=== PATIENT | female | born 1955 | race Caucasian/White ===

== ENCOUNTER 2017-10-29 20:43 | Emergency (ER) | END 2017-10-30 00:16 | disposition left against medical advice (07) ==

== ENCOUNTER 2019-03-02 11:45 | Inpatient (IN) | payer OTHER ==
[~2019-03-02] VITALS: Ht 157.5 cm; Wt 90.6 kg
[~2019-03-02 11:45] MED LIST: PANT40TA3 PO; RANI150T35 PO
--- NOTE | 2019-03-02 12:25 | ERD ---
ER Documentation Chief Complaint Chief Complaint SOB HPI The patient is a 64-year-old female, presenting to the ER because of acute d yspnea, CARO for the last 10 days, had similar symptoms previously, complains of right lower back radiating to the right upper chest for 10 days, also had similar symptoms previously, complains of intermittent cough for the last 20 days. She denies fever, chills, neck pain, chest pain, complains of vomiting intermittently for 1 week of mostly mucus, denies hematemesis/hematochezia, denies dysuria. She does not smoke nor drink. She recently changed her antihypertensive medication to olmesartan 40 mg daily and clonidine 0.1 mg as needed daily. She just took her medication about 20 minutes while she was waiting in the ER waiting room. Past medical history: History of metastatic ovarian cancer with chemotherapy for the last 5 years, hypertension, anemia, sleep apnea, history of peritoneal carcinoma Past surgical history: Thoracentesis, hysterectomy ROS All systems reviewed and are negative except as per history of present illness. Medications Home Meds Reported Medications Cholecalciferol* (Vitamin D3*) 1,000 Unit Tablet, 1000 UNIT PO DAILY, TAB 03/02/19 Pantoprazole* (Protonix*) 40 Mg Tablet.dr, 40 MG PO DAILY, TAB 03/02/19 Ibuprofen* (Motrin*) 600 Mg Tab, 600 MG PO Q6H PRN for PAIN, TAB 03/02/19 Metformin Hcl* (Metformin Hcl*) 500 Mg Tablet, 500 MG PO WITH BREAKFAST, #30 TAB 03/02/19 Clonidine Hcl* (Clonidine Hcl*) 0.1 Mg Tab, 0.1 MG PO DAILY PRN for BLOOD PRESSURE SUPPORT, TAB 03/02/19 Hydrochlorothiazide* (Hydrochlorothiazide*) 25 Mg Tab, 25 MG PO DAILY, #30 TAB 03/02/19 Olmesartan Medoxomil (Benicar) 40 Mg Tablet, 40 MG PO DAILY, #30 TAB 03/02/19 Discontinued Scripts Pantoprazole* (Protonix*) 40 Mg Tablet.dr, 40 MG PO BID for 30 Days, TAB Prov:RACHNA BAUER MD 06/27/16 Ranitidine Hcl* (Zantac*) 150 Mg Tablet, 150 MG PO BID, #60 TAB Prov:FREDI CRAMER DO 06/09/16 Allergies Allergies: Coded Allergies: No Known Allergies (Verified Allergy, Unknown, 03/02/19) PMhx/Soc History of Surgery: Yes (thoracentesis, chemo) Anesthesia Reaction: No Hx Neurological Disorder: No Hx Respiratory Disorders: No Hx Cardiac Disorders: Yes (HTN) Hx Psychiatric Problems: No Hx Miscellaneous Medical Probl: Yes (intra abdominal pelvic malignancy, R omental mass,peritoneal ca,bronchitis,) Hx Alcohol Use: No Hx Substance Use: No Hx Tobacco Use: No Physical Exam Vitals Vital Signs Date Temp Pulse Resp B/P (MAP) Pulse Ox O2 O2 Flow FiO2 Time Delivery Rate 03/02/19 Nasal 2 12:40 Cannula 03/02/19 98.7 85 18 228/100 95 11:49 (142) Physical Exam Const: No acute distress. Head: Atraumatic. Eyes: Normal Conjunctiva. ENT: Normal External Ears, Nose and Mouth. Neck: Full range of motion. No meningismus. Resp: Bibasilar crackles. Decreased breath sounds at the bases Cardio: Regular rate and rhythm. Abd: Soft, non distended, normal bowel sounds, non tender. Skin: No petechiae or rashes. Back: No midline or flank tenderness. Ext: No cyanosis, or edema. Neur: Awake and alert. No focal deficit Psych: Normal Mood and Affect. Result Diagram: 03/02/19 1307 03/02/19 1306 Results 24 hrs Laboratory Tests Test 03/02/19 13:06 03/02/19 13:07 03/02/19 13:29 Prothrombin Time 14.0 Sec Prothrombin Time Ratio 1.1 INR International 1.07 Normalized Ratio Activated 28.6 Sec Partial Thromboplast Time D-Dimer 1738.55 ng/ml D-Dimer Comment Sodium Level 144 mmol/L Potassium Level 3.6 mmol/L Chloride Level 111 mmol/L Carbon Dioxide Level 27 mmol/L Anion Gap 6 Blood Urea Nitrogen 26 mg/dl Creatinine 1.53 mg/dl Est Glomerular Filtrat 34 mL/min Rate mL/min Glucose Level 99 mg/dl Calcium Level 9.3 mg/dl Total Bilirubin 0.6 mg/dl Direct Bilirubin 0.00 mg/dl Indirect Bilirubin 0.6 mg/dl Aspartate Amino 26 IU/L Transf (AST/SGOT) Alanine 15 IU/L Aminotransferase (ALT/SGPT ) Alkaline Phosphatase 146 IU/L Troponin I < 0.012 ng/ml B-Type Natriuretic Peptide 665 PG/ML Total Protein 7.5 g/dl Albumin 4.0 g/dl Globulin 3.50 g/dl Albumin/Globulin Ratio 1.14 White Blood Count 5.6 10^3/ul Red Blood Count 2.65 10^6/ul Hemoglobin 8.2 g/dl Hematocrit 28.2 % Mean Corpuscular Volume 106.4 fl Mean Corpuscular 30.9 pg Hemoglobin Mean Corpuscular 29.1 g/dl Hemoglobin Concent Red Cell Distribution 22.8 % Width Platelet Count 315 10^3/UL Mean Platelet Volume 9.5 fl Immature Granulocytes % 0.400 % Neutrophils % 65.5 % Lymphocytes % 23.9 % Monocytes % 7.0 % Eosinophils % 2.3 % Basophils % 0.9 % Nucleated Red Blood Cells 0.4 /100WBC % Immature Granulocytes # 0.020 10^3/ul Neutrophils # 3.7 10^3/ul Lymphocytes # 1.3 10^3/ul Monocytes # 0.4 10^3/ul Eosinophils # 0.1 10^3/ul Basophils # 0.1 10^3/ul Nucleated Red Blood Cells 0.0 10^3/ul # Blood Gas Specimen Source Blood arterial Arterial Blood Date Drawn 03/02/2019 1:35:00 PM Arterial Blood pH 6.907 (Temp corrected) Arterial Blood pO2 85.2 mmHG (Temp corrected) Arterial Blood 94.1 mmHG Oxygen Saturation Vincent Test ACCEPTAB Arterial Blood Gas Right Radial Puncture Site Arterial 0.4 % Blood Carboxyhemoglobin Arterial Blood 0.6 % Methemoglobin Oxyhemoglobin Percent 93.2 % Blood Gas Temperature 31.0 C Blood Gas Respiration Rate 16.0 Blood Gas Actual 16 Respiration Rate Blood Gas Modality VENT - PC FiO2 100.0 % Blood Gas High PEEP 35.0 cmH2O Setting Blood Gas Low PEEP Setting 5.0 cmH2O Blood Gas Critical Value DR. HEIN. Read Back Blood Gas Notified Whom RT Blood Gas Notified Time 03/02/2019 1:43:00 PM Current Medications Medications Dose Sig/Deepika Start Time Status Last (Trade) Ordered Route PRN Stop Time Admin Dose Reason Admin Ondansetron 4 mg ONCE STAT 03/02/19 DC HCl (Zofran IV 12:39 Inj) 03/02/19 12:41 Furosemide 40 mg ONCE ONCE 03/02/19 DC (Lasix) IV 14:30 03/02/19 14:32 Procedures/MDM [place] [id number] Radiology Main Line: [phone] DIAGNOSTIC IMAGING REPORT Patient: RITCHIE ZEE : 1955 Age: 64 Sex: F MR #: [id number] DOS: 03/02/19 1239 Ordering MD: LOYD PATEL MD Location: E/R Room/Bed: PROCEDURE: XR Chest. CLINICAL INDICATION: Dyspnea TECHNIQUE: Single frontal chest x-ray. COMPARISON: CR CHEST 06/25/2016; CR CHEST 06/22/2016; CR CHEST 06/09/2016; CR CHEST 04/17/2016 FINDINGS: Diminished lung volumes with compressive changes. Vascular crowding and bilateral basilar atelectasis. Moderate right pleural effusion, slightly improved in the interim. Mild vascular congestion, significantly improved in the interim. The cardiomediastinal silhouette is normal. Soft tissues and bony structures are unremarkable. IMPRESSION: 1. Low lung volumes with compressive changes and basilar atelectasis. 2. Improved vascular congestion and edema throughout the lungs. 3. Moderate right pleural effusion, also improved in the interim. RPTAT: HMJB .Ga Mccabe MD, MD Date Time Electronically viewed and signed by .Ga Mccabe MD, MD on 03/02/2019 13:35 .B/ CC: LOYD PATEL MD [id number] EKG: Read by emergency physician Rate/Rhythm: Normal Sinus Rhythm 77 beats/min QRS, ST, T-waves: No ST elevation, nonspecific T abnormality Impression: Abnormal EKG V/Q Pending MEDICAL MAKING DECISION: The patient is a 64-year-old female, presenting with acute CHF exacerbation, acute recurrent right pleural effusion, acute kidney injury. She was treated with Zofran 4 mg IV for nausea and Lasix 40 mg for acute CHF. CT angiogram of the chest cannot be done to rule out pulmonary embolism because of her acute kidney injury, VQ scan has been ordered and will be followed up by the admitting physician The differential diagnoses considered include but are not limited to asthma, COPD, pneumonia, pulmonary embolus, pleural effusion, congestive heart failure. Departure Diagnosis: Primary Impression: CHF (congestive heart failure) Additional Impressions: Pleural effusion, right NAGA (acute kidney injury) Anemia Condition: Stable Comments Consultation: I discussed the patient with her oncologist Dr. Santana, who was made aware of the lab, the treatment, the patient condition and accepted the consult I discussed the findings with the patient. I discussed the patient with Dr Massey at 2:40p , who was made aware of the lab, the treatment, the patient condition, pending V/Q scan. The patient is admitted to [facility] Disclaimer: Inadvertent spelling and grammatical errors are likely due to EHR/dictation software use and do not reflect on the overall quality of patient care. Also, please note that the electronic time recorded on this note does not necessarily reflect the actual time of the patient encounter. LOYD PATEL MD March 02, 2019 12:25
[2019-03-02] MEDS ORDERED: ONDANSETRON 4 MG INJ IV STA (12:39)
[2019-03-02] MEDS ORDERED: HYDR25TA6 PO (14:21)
[2019-03-02] MEDS ORDERED: METF500T24 PO (14:21)
[2019-03-02] MEDS ORDERED: CLON-379 PO (14:21)
[2019-03-02] MEDS ORDERED: OLME40TA13 PO (14:21)
[2019-03-02] MEDS ORDERED: PANT40TA3 PO (14:22)
[2019-03-02] MEDS ORDERED: IBUP-1542 PO (14:22)
[2019-03-02] MEDS ORDERED: CHOL100062 PO (14:23)
[2019-03-02] MEDS ORDERED: FUROSEMIDE 40 MG INJ IV ONE (14:30)
[2019-03-02] MEDS ORDERED: HYDROCODONE/APAP (5/325) TAB PO PRN (17:30)
[2019-03-02] MEDS ORDERED: NACL 0.9% 3 ML SYG IV SCH (17:30)
[2019-03-02 17:55] VITALS: Ht 157.5 cm; Wt 90.6 kg
[2019-03-02 18:00] VITALS: BP 152/66; PULSE 81; RESP 20
--- NOTE | 2019-03-02 18:38 | HP ---
Date/Time of Note Date/Time of Note DATE: 03/02/19 TIME: 18:29 Assessment/Plan VTE Prophylaxis SCD applied (from Nsg): Yes Pharmacological prophylaxis: heparin Lines/Catheters IV Catheter Type (from Nrsg): Saline Lock Urinary Cath still in place: No Assessment/Plan Hospital Course 64 yo female with h/o ovarian cancer, DMII, hypertension presents with respiratory distress and severe hypertension Respiratory distress: - Unclear etiology. Suspect perhaps related to hypertensive emergency wtih mild CHF. Will give another dose of lasix - WIll CT chest to assess for effusion or mets Ovarian cancer:- - Ct a/p to assess for tumor burden to explain pain and priandial nausea Hypertension: - Continue home meds and titrate to normotension DMII: - Basal/bolus insulin Result Diagram: 03/02/19 1307 03/02/19 1306 Results 24hrs Laboratory Tests Test 03/02/19 13:06 03/02/19 13:07 03/02/19 13:29 Prothrombin Time 14.0 Prothrombin Time Ratio 1.1 INR International 1.07 Normalized Ratio Activated 28.6 Partial Thromboplast Time D-Dimer 1738.55 H D-Dimer Comment Urine Color YELLOW Urine Clarity CLOUDY A Urine pH 5.0 Urine Specific [place] 1.016 Urine Ketones NEGATIVE Urine Nitrite NEGATIVE Urine Bilirubin NEGATIVE Urine Urobilinogen 1+ H Urine Leukocyte Esterase TRACE A Urine Microscopic RBC 2 Urine Microscopic WBC 7 H Urine Squamous MODERATE Epithelial Cells Urine Bacteria FEW A Urine Mucus FEW A Urine Hemoglobin NEGATIVE Urine Glucose NEGATIVE Urine Total Protein 2+ H Sodium Level 144 Potassium Level 3.6 Chloride Level 111 H Carbon Dioxide Level 27 Anion Gap 6 Blood Urea Nitrogen 26 H Creatinine 1.53 H Est Glomerular Filtrat 34 L Rate mL/min Glucose Level 99 Calcium Level 9.3 Total Bilirubin 0.6 Direct Bilirubin 0.00 Indirect Bilirubin 0.6 Aspartate Amino 26 Transf (AST/SGOT) Alanine 15 Aminotransferase (ALT/SGPT) Alkaline Phosphatase 146 H Troponin I < 0.012 B-Type Natriuretic Peptide 665 H Total Protein 7.5 Albumin 4.0 Globulin 3.50 H Albumin/Globulin Ratio 1.14 White Blood Count 5.6 # Red Blood Count 2.65 L Hemoglobin 8.2 #L Hematocrit 28.2 L Mean Corpuscular Volume 106.4 H Mean Corpuscular Hemoglobin 30.9 Mean Corpuscular 29.1 L Hemoglobin Concent Red Cell Distribution Width 22.8 H Platelet Count 315 Mean Platelet Volume 9.5 # Immature Granulocytes % 0.400 Neutrophils % 65.5 Lymphocytes % 23.9 Monocytes % 7.0 Eosinophils % 2.3 Basophils % 0.9 Nucleated Red Blood Cells % 0.4 H Immature Granulocytes # 0.020 Neutrophils # 3.7 Lymphocytes # 1.3 Monocytes # 0.4 Eosinophils # 0.1 Basophils # 0.1 Nucleated Red Blood Cells # 0.0 Blood Gas Specimen Source Blood arterial Arterial Blood Date Drawn 03/02/2019 1:35:00 PM Arterial Blood pH 6.907 *L (Temp corrected) Arterial Blood pO2 85.2 (Temp corrected) Arterial Blood 94.1 L Oxygen Saturation Vincent Test ACCEPTAB Arterial Blood Gas Right Radial Puncture Site Arterial 0.4 Blood Carboxyhemoglobin Arterial Blood Methemoglobin 0.6 Oxyhemoglobin Percent 93.2 Blood Gas Temperature 31.0 Blood Gas Respiration Rate 16.0 Blood Gas Actual 16 Respiration Rate Blood Gas Modality VENT - PC FiO2 100.0 Blood Gas High PEEP Setting 35.0 Blood Gas Low PEEP Setting 5.0 Blood Gas Critical Value [address] HEIN. Read Back Blood Gas Notified Whom RT Blood Gas Notified Time 03/02/2019 1:43:00 PM HPI/ROS Admit Date/Time Admit Date/Time March 02, 2019 at 15:26 Hx of Present Illness 64 yo female with h/o ovarian cancer on chemo, CKD, DMII, hypertension presents with respiratory distress and R flank pain Patient diagnosed with ovarian ca and peritoneal carcinomatosis a few years ago. Has been on chemotherapy. Has previously required thoracentesis. Today presetns with shrotness of breath, frequent cough and pain fairly localized to R flank. She seems to relate the flank pain to SOB. In ED had negative V/Q scan. Severe hypertension on presentation now resolved. Currently feels much better. Requesting another lasix dose. ROS Constitutional: no complaints, improved Eyes: no complaints ENT: no complaints Respiratory: no complaints Cardiovascular: no complaints Gastrointestinal: no complaints Genitourinary: no complaints Musculoskeletal: no complaints Skin: no complaints Neurologic: no complaints Endocrine: no complaints Lymphatic: no complaints Psychological: no complaints, nl mood/affect Immunologic: no complaints PMH/Family/Social Past Medical History Ovarian cancer Medications Current Medications IV Flush (NS 3 ml) 3 ml PER PROTOCOL IV ; Start 03/02/19 at 17:30 Acetaminophen/ Hydrocodone Bitart ([place] (5/325)) 2 tab Q6H PRN PO .SEVERE PAIN 7-10; Start 03/02/19 at 17:30 Enoxaparin Sodium (Lovenox) 30 mg DAILY SC ; Start 03/03/19 at 09:00 Coded Allergies: No Known Allergies (Verified Allergy, Unknown, 03/02/19) Past Surgical History Past Surgical Hx: no surgical history, appendectomy Family History Significant Family History: no pertinent family hx Social History Alcohol Use: none Smoking Status: Never smoker Drug Use: none Exam/Review of Systems Vital Signs Vitals Vital Signs Date Temp Pulse Resp B/P (MAP) Pulse Ox O2 O2 Flow FiO2 Time Delivery Rate 03/02/19 2.0 18:15 03/02/19 98.4 81 20 152/66 94 Nasal 18:00 (94) Cannula ADRIAN FRANCO MD March 02, 2019 18:38
[2019-03-02] MEDS ORDERED: IOHEXOL 14.3 MG(I)/ML (ADULT) BTL PO ONE (19:30)
[2019-03-02 20:00] VITALS: PULSE 71
[2019-03-02 20:14] VITALS: BP 199/91; PULSE 74; RESP 20
[2019-03-02 21:54] VITALS: BP 190/83
[2019-03-02] MEDS ORDERED: hydrALAzine 20 MG INJ IV PRN (22:00)
--- NOTE | 2019-03-02 23:38 | CONS ---
Assessment/Plan Assessment/Plan Hospital Course (Demo Recall) metastatic ovarian carcinoma with peritoneal disease. - CHEMO ON HOLD DURING HOSPITALIZATION RESTAGE ANEMIA, likely secondary to underlying malignancy post-chemotherapy COMPLEX POST CHEMO MB HEMATURIA IS CONTRIBUTING TRANSFUSE PRBC PRN Obstructing renal calculi, right ureter. UROLOGY EVAL ? Mild congestive cardiac failure. CHECK ECHO HX Significant dysphagia, possible esophageal motility problem versus obstruction. HX Subsequent aspiration events with syncopal episodes. 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 Has been on chemotherapy. Has previously required thoracentesis. Today presents with shortness of breath, frequent cough and pain fairly localized to R flank. She seems to relate the flank pain to SOB. In ED had negative V/Q scan. Severe hypertension on presentation now resolved. Currently feels much better. Requesting another lasix dose. ROS Constitutional: no complaints, improved Eyes: no complaints ENT: no complaints Respiratory: + SOB. + PAIN Cardiovascular: no complaints Gastrointestinal: no complaints Genitourinary: no complaints Musculoskeletal: no complaints Skin: no complaints Neurologic: no complaints Endocrine: no complaints Lymphatic: no complaints Psychological: no complaints, nl mood/affect Immunologic: no complaints PMH/Family/Social Past Medical History Ovarian cancer Medications Current Medications IV Flush (NS 3 ml) 3 ml PER PROTOCOL IV ; Start 03/02/19 at 17:30 Acetaminophen/ Hydrocodone Bitart ([place] (5/325)) 2 tab Q6H PRN PO .SEVERE PAIN 7-10; Start 03/02/19 at 17:30 Enoxaparin Sodium (Lovenox) 30 mg DAILY SC ; Start 03/03/19 at 09:00 Coded Allergies: No Known Allergies (Verified Allergy, Unknown, 03/02/19) Past Surgical History Past Surgical Hx: no surgical history, appendectomy Family History Significant Family History: no pertinent family hx Social History Alcohol Use: none Smoking Status: Never smoker Drug Use: none Past Medical History Home Meds Active Scripts Tamsulosin Hcl* (Flomax*) 0.4 Mg Cap.er.24h, 0.4 MG PO DAILY for 30 Days, #30 CAP Prov:ADRIAN FRANCO MD 03/03/19 Carvedilol* (Carvedilol*) 6.25 Mg Tablet, 6.25 MG PO BID for 60 Days, #120 TAB Prov:ADRIAN FRANCO MD 03/03/19 Reported Medications Cholecalciferol* (Vitamin D3*) 1,000 Unit Tablet, 1000 UNIT PO DAILY, TAB 03/02/19 Pantoprazole* (Protonix*) 40 Mg Tablet.dr, 40 MG PO DAILY, TAB 03/02/19 Metformin Hcl* (Metformin Hcl*) 500 Mg Tablet, 500 MG PO WITH BREAKFAST, #30 TAB 03/02/19 Clonidine Hcl* (Clonidine Hcl*) 0.1 Mg Tab, 0.1 MG PO DAILY PRN for BLOOD PRESSURE SUPPORT, TAB 03/02/19 Hydrochlorothiazide* (Hydrochlorothiazide*) 25 Mg Tab, 25 MG PO DAILY, #30 TAB 03/02/19 Discontinued Reported Medications Ibuprofen* (Motrin*) 600 Mg Tab, 600 MG PO Q6H PRN for PAIN, TAB 03/02/19 Olmesartan Medoxomil (Benicar) 40 Mg Tablet, 40 MG PO DAILY, #30 TAB 03/02/19 Discontinued Scripts Pantoprazole* (Protonix*) 40 Mg Tablet.dr, 40 MG PO BID for 30 Days, TAB Prov:RACHNA BAUER MD 06/27/16 Ranitidine Hcl* (Zantac*) 150 Mg Tablet, 150 MG PO BID, #60 TAB Prov:FREDI CRAMER DO 06/09/16 Medications Current Medications IV Flush (NS 3 ml) 3 ml PER PROTOCOL IV ; Start 03/02/19 at 17:30 Acetaminophen/ Hydrocodone Bitart ([place] (5/325)) 2 tab Q6H PRN PO .SEVERE PAIN 7-10; Start 03/02/19 at 17:30 Enoxaparin Sodium (Lovenox) 30 mg DAILY SC ; Start 03/03/19 at 09:00 Clonidine (Catapres) 0.1 mg TID PO Last administered on 03/02/19at 20:17; Admin Dose 0.1 MG; Start 03/02/19 at 21:00 Carvedilol (Coreg) 6.25 mg BID PO Last administered on 03/02/19at 20:16; Admin Dose 6.25 MG; Start 03/02/19 at 21:00 Hydralazine HCl (Apresoline) 10 mg Q4H PRN IV FOR SYSTOLIC ABOVE 170 Last administered on 03/02/19at 22:11; Admin Dose 10 MG; Start 03/02/19 at 22:00 Allergies: Coded Allergies: No Known Allergies (Verified Allergy, Unknown, 03/02/19) Past Surgical History Past Surgical Hx: no surgical history, appendectomy Social History Alcohol Use: none Smoking Status: Never smoker Drug Use: none Exam/Review of Systems Exam Vitals Vital Signs Date Temp Pulse Resp B/P (MAP) Pulse Ox O2 O2 Flow FiO2 Time Delivery Rate 03/02/19 190/83 21:54 (118) 03/02/19 98.6 74 20 95 20:14 03/02/19 2.0 20:00 03/02/19 Nasal 18:00 Cannula Exam NECK: Supple. No JVD or lymphadenopathy. CARDIAC: S1, S2, no added sounds or murmurs. CHEST: Diminished air entry bilaterally, but no rales or wheezes. ABDOMEN: Soft, nontender. No guarding or rebound. EXTREMITIES: No cyanosis, clubbing, edema. NEUROLOGIC: Grossly intact. No focal deficits. Results Result Diagram: 03/02/19 1307 03/02/19 1306 Results 24hrs Laboratory Tests Test 03/02/19 13:06 03/02/19 13:07 03/02/19 13:29 Prothrombin Time 14.0 Prothrombin Time Ratio 1.1 INR International 1.07 Normalized Ratio Activated 28.6 Partial Thromboplast Time D-Dimer 1738.55 H D-Dimer Comment Urine Color YELLOW Urine Clarity CLOUDY A Urine pH 5.0 Urine Specific [place] 1.016 Urine Ketones NEGATIVE Urine Nitrite NEGATIVE Urine Bilirubin NEGATIVE Urine Urobilinogen 1+ H Urine Leukocyte Esterase TRACE A Urine Microscopic RBC 2 Urine Microscopic WBC 7 H Urine Squamous MODERATE Epithelial Cells Urine Bacteria FEW A Urine Mucus FEW A Urine Hemoglobin NEGATIVE Urine Glucose NEGATIVE Urine Total Protein 2+ H Sodium Level 144 Potassium Level 3.6 Chloride Level 111 H Carbon Dioxide Level 27 Anion Gap 6 Blood Urea Nitrogen 26 H Creatinine 1.53 H Est Glomerular Filtrat 34 L Rate mL/min Glucose Level 99 Calcium Level 9.3 Total Bilirubin 0.6 Direct Bilirubin 0.00 Indirect Bilirubin 0.6 Aspartate Amino 26 Transf (AST/SGOT) Alanine 15 Aminotransferase (ALT/SGPT) Alkaline Phosphatase 146 H Troponin I < 0.012 B-Type Natriuretic Peptide 665 H Total Protein 7.5 Albumin 4.0 Globulin 3.50 H Albumin/Globulin Ratio 1.14 White Blood Count 5.6 # Red Blood Count 2.65 L Hemoglobin 8.2 #L Hematocrit 28.2 L Mean Corpuscular Volume 106.4 H Mean Corpuscular Hemoglobin 30.9 Mean Corpuscular 29.1 L Hemoglobin Concent Red Cell Distribution Width 22.8 H Platelet Count 315 Mean Platelet Volume 9.5 # Immature Granulocytes % 0.400 Neutrophils % 65.5 Lymphocytes % 23.9 Monocytes % 7.0 Eosinophils % 2.3 Basophils % 0.9 Nucleated Red Blood Cells % 0.4 H Immature Granulocytes # 0.020 Neutrophils # 3.7 Lymphocytes # 1.3 Monocytes # 0.4 Eosinophils # 0.1 Basophils # 0.1 Nucleated Red Blood Cells # 0.0 Blood Gas Specimen Source Blood arterial Arterial Blood Date Drawn 03/02/2019 1:35:00 PM Arterial Blood pH 6.907 *L (Temp corrected) Arterial Blood pO2 85.2 (Temp corrected) Arterial Blood 94.1 L Oxygen Saturation Vincent Test ACCEPTAB Arterial Blood Gas Right Radial Puncture Site Arterial 0.4 Blood Carboxyhemoglobin Arterial Blood Methemoglobin 0.6 Oxyhemoglobin Percent 93.2 Blood Gas Temperature 31.0 Blood Gas Respiration Rate 16.0 Blood Gas Actual 16 Respiration Rate Blood Gas Modality VENT - PC FiO2 100.0 Blood Gas High PEEP Setting 35.0 Blood Gas Low PEEP Setting 5.0 Blood Gas Critical Value [address] HEIN. Read Back Blood Gas Notified Whom RT Blood Gas Notified Time 03/02/2019 1:43:00 PM Medications Medication Current Medications IV Flush (NS 3 ml) 3 ml PER PROTOCOL IV ; Start 03/02/19 at 17:30 Acetaminophen/ Hydrocodone Bitart ([place] (5/325)) 2 tab Q6H PRN PO .SEVERE PAIN 7-10; Start 03/02/19 at 17:30 Enoxaparin Sodium (Lovenox) 30 mg DAILY SC ; Start 03/03/19 at 09:00 Clonidine (Catapres) 0.1 mg TID PO Last administered on 03/02/19at 20:17; Admin Dose 0.1 MG; Start 03/02/19 at 21:00 Carvedilol (Coreg) 6.25 mg BID PO Last administered on 03/02/19 20:16; Admin Dose 6.25 MG; Start 03/02/19 at 21:00 Hydralazine HCl (Apresoline) 10 mg Q4H PRN IV FOR SYSTOLIC ABOVE 170 Last administered on 03/02/19at 22:11; Admin Dose 10 MG; Start 03/02/19 at 22:00 PHILIPP CHANG MD March 02, 2019 23:38
[2019-03-03] VITALS (10 sets, daily range): BP systolic 120–169; BP diastolic 57–83; PULSE 63–75; RESP 18–20
[2019-03-03] MEDS ORDERED: ENOXAPARIN 30 MG/0.3 ML SYG SC SCH (09:00)
[2019-03-03] MEDS ORDERED: FUROSEMIDE 20 MG INJ IV ONE (11:30)
--- NOTE | 2019-03-03 15:39 | PN ---
DATE: 03/03/2019 SUBJECTIVE: The patient is stable this morning, awake, alert, comfortable, no respiratory distress. Mild pleuritic chest pain. PHYSICAL EXAMINATION: VITAL SIGNS: Temperature 97.5, pulse 65, blood pressure 137/76, O2 saturation 96% on room air. NECK: Supple. No JVD or lymphadenopathy. CARDIAC: S1, S2, no added sounds or murmurs. CHEST: Diminished air entry bilaterally, but no rales or wheezes. ABDOMEN: Soft, nontender. No guarding or rebound. EXTREMITIES: No cyanosis, clubbing, edema. NEUROLOGIC: Grossly intact. No focal deficits. LABORATORY DATA: White count 5.5, hemoglobin 7.2, platelets of 308. BUN 27, creatinine 1.65, BNP mi ldly elevated at 665. INR was 1.07. Initial CT chest demonstrated 0.5 cm obstructing calculus dista l right ureter with moderate hydronephrosis, bilateral pulmonary emboli, some of which are new consis tent with metastatic disease, new liver metastasis and significant peritoneal metastasis. VQ scan is negative for pulmonary embolus. IMPRESSION: 1. Anemia, likely secondary to underlying malignancy post-chemotherapy, followed by Dr. Shonna pina with a history of metastatic ovarian CA. 2. Obstructing renal calculi, right ureter. 3. Mild congestive cardiac failure. PLAN: 1. Lasix x1. 2. Transfuse 1 unit packed red blood cells. 3. Hematology/oncology evaluation. 4. Urology consult, Dr. Sawant for obstructive uropathy. The patient can be transferred to [facility] in interim. Dictated By: BEL MORALES MD SV/DANAE Conf#: [id number] DID#: [id number] CC: DUSTIN SAWANT MD; ADRIAN FRANCO MD;*End*
--- NOTE | 2019-03-03 17:08 | RADRPT ---
Echocardiogram Report Patient Name: RITCHIE ZEEPatient ID: [id number] : 1955 (64y )Study Date: 03/03/2019 7:16:24 AM Gender: FAccession #: [id number] Tech: Raquel Sanchez [facility] Location: 6 Ref.Physician: ADRIAN FRANCO Height(Cm): BSA: Weight(Kg): Quality: Technically Difficult StudyOrder Physician: ADRIAN FRANCO Account #: Procedures: Echocardiographic Report: Transthoracic echocardiogram with complete 2D, M-Mode, and doppler examination. Indications: Congestive Heart Failure, and Murmur. Measurements: 2D/M Mode Doppler Measurement Value Normal Range Measurement Value Normal Range LVIDd 2D 4.2 [ 3.8 - 5.2 ] cm EARL VTI 1.1 [ 2.0 - 4.0 ] cm2 LVIDs 2D 2.3 [ 2.2 - 3.5 ] cm AV Mean Bird 1.8 [ 70.0 - 90.0 ] cm/sec LVPWd 2D 1.2 [ 0.6 - 0.9 ] cm AV Mean PG 16.0 [ 2.0 - 4.0 ] mmHg IVSd 2D 1.4 [ 0.6 - 0.9 ] cm AV VTI 69.5 cm AoR Diam 2D 2.7 [ 2.3 - 3.1 ] cm LVOT Mean Bird 0.7 [ 60.0 - 80.0 ] cm/sec EDV 2D 76.4 [ 46.0 - 106.0 ] ml LVOT Mean PG 3.0 [ 1.0 - 3.0 ] mmHg ESV 2D 18.7 [ 14.0 - 42.0 ] ml LVOT Peak Bird 1.1 [ 70.0 - 110.0 ] cm/sec EF 2D 75.5 [ 54.0 - 74.0 ] percent LVOT Peak PG 5.0 [ 2.0 - 6.0 ] mmHg LA Dimen 2D 3.1 [ 2.7 - 3.8 ] cm LVOT VTI 27.3 [ 20.0 - 30.0 ] cm LVOT Diam 1.9 [ 2.1 - 2.5 ] cm MV E Peak Bird 1.1 [ 60.0 - 130.0 ] cm/sec MV A Peak Bird 1.2 [ 100.0 - 120.0 ] cm/sec MV E/A 0.9 [ 0.8 - 1.5 ] ratio MV Decel Time 190 [ 104 - 258 ] msec Lat E` Bird 0.1 [ 10.0 - 15.0 ] cm/sec Lateral E/E` 14.1 [ 1.0 - 2.0 ] ratio MV E/A 0.9 [ 0.8 - 1.5 ] ratio TR Peak Bird 2.2 [ 100.0 - 280.0 ] cm/sec TR Peak PG 20.0 mmHg RVSP 23.0 [ 10.0 - 36.0 ] mmHg RA Pressure 3.0 mmHg Findings: Left Ventricle: Overall, normal left ventricular systolic function. Not all segments visualized. Normal left ventricular cavity size. Moderate concentric left ventricular hypertrophy. Ejection fraction is visually estimated at 60 %. Tissue Doppler/Mitral Doppler indices are consistent with impaired relaxation (Stage I diastolic dysfunction). Right Ventricle: Normal right ventricular size. Normal right ventricular systolic function. Left Atrium: The left atrium is normal in size. Right Atrium: The right atrium is normal in size. Mitral Valve: Mitral valve is not well visualized. Mild mitral leaflet calcification. Mild to moderate mitral valve regurgitation. Aortic Valve: Mild aortic stenosis. Aortic cusps appear moderately calcified. Trace aortic valve regurgitation. Tricuspid Valve: Tricuspid valve not well visualized. The estimated Peak RVSP is 23 mmHg. There is trace tricuspid regurgitation. Pulmonic Valve: Pulmonic valve not well visualized. Pericardium: Normal pericardium with no significant pericardial effusion. Aorta: Normal aortic root. IVC: Normal size and normal respiratory collapse consistent with normal right atrial pressure. Conclusions: Overall, normal left ventricular systolic function. Not all segments visualized. Normal left ventricular cavity size. Moderate concentric left ventricular hypertrophy. Ejection fraction is visually estimated at 60 %. Tissue Doppler/Mitral Doppler indices are consistent with impaired relaxation (Stage I diastolic dysfunction). Normal right ventricular size. Normal right ventricular systolic function. The left atrium is normal in size. The right atrium is normal in size. Mild to moderate mitral valve regurgitation. Mild aortic stenosis. Trace aortic valve regurgitation. There is trace tricuspid regurgitation. Normal pericardium with no significant pericardial effusion. Electronically Signed By: Carmelo Song 2019-03-03 17:07:53 PDT
[2019-03-03] MEDS ORDERED: CARV6.2579 PO (17:28)
[2019-03-03] MEDS ORDERED: TAMS-14 PO (17:28)
--- NOTE | 2019-03-03 17:30 | PDOCDIS ---
Discharge Instructions DIAGNOSIS Discharge Diagnosis Obstructive uropathy Ovarian cancer CONDITION [id number] Patient Condition: [id number] Stable FOLLOW UP/APPOINTMENTS Follow-up Plan Make an appointemnt to see a urologist in clinic if you continue to have problems with kidney stone See Dr Tadeo for further management of your ovarian cancer Change your blood pressure medications as I have prescribed ADRIAN FRANCO MD March 03, 2019 17:29
--- NOTE | 2019-03-03 23:39 | CONS ---
Assessment/Plan Assessment/Plan Hospital Course (Demo Recall) metastatic ovarian carcinoma with peritoneal disease. - DIS IS PROGRESSING WILL CHANGE CHEMO POST DC ANEMIA, likely secondary to underlying malignancy post-chemotherapy COMPLEX POST CHEMO MB HEMATURIA IS CONTRIBUTING TRANSFUSE PRBC PRN Obstructing renal calculi, right ureter. UROLOGY EVAL ? Mild congestive cardiac failure. CHECK ECHO HX Significant dysphagia, possible esophageal motility problem versus obstruction. HX Subsequent aspiration events with syncopal episodes. GERD OBESITY OK TO DC WILL F-UP OUTPT VK LE Consultation Date/Type/Reason Admit Date/Time March 02, 2019 at 15:26 Initial Consult Date Type of Consult HEMEONC Reason for Consultation OVARIAN CANCER Requesting Provider: ADRIAN FRANCO MD Date/Time of Note DATE: 03/03/19 TIME: 23:39 24 HR Interval Summary Free Text/Dictation ALL NOTED D/W PT AND SON Exam/Review of Systems Exam Vitals Vital Signs Date Temp Pulse Resp B/P (MAP) Pulse Ox O2 O2 Flow FiO2 Time Delivery Rate 03/03/19 98.0 66 18 129/59 91 Room Air 15:04 (82) 03/03/19 2.0 07:39 Intake and Output 03/02/19 03/02/19 03/03/19 1515:00 23:00 07:00 IntakeIntake Total 400 ml BalanceBalance 400 ml Exam NECK: Supple. No JVD or lymphadenopathy. CARDIAC: S1, S2, no added sounds or murmurs. CHEST: Diminished air entry bilaterally, but no rales or wheezes. ABDOMEN: Soft, nontender. No guarding or rebound. EXTREMITIES: No cyanosis, clubbing, edema. NEUROLOGIC: Grossly intact. No focal deficits. Results Result Diagram: 03/03/19 1533 03/03/19 0446 Results 24hrs Laboratory Tests Test 03/03/19 04:46 03/03/19 15:33 White Blood Count 5.5 4.9 Red Blood Count 2.34 L 2.53 L Hemoglobin 7.2 L 7.7 L Hematocrit 24.8 L 26.4 L Mean Corpuscular Volume 106.0 H 104.3 H Mean Corpuscular Hemoglobin 30.8 30.4 Mean Corpuscular Hemoglobin Concent 29.0 L 29.2 L Red Cell Distribution Width 22.9 H 22.9 H Platelet Count 308 383 # Mean Platelet Volume 9.6 9.9 Immature Granulocytes % 0.400 0.200 Neutrophils % 53.7 58.8 Lymphocytes % 31.3 27.9 Monocytes % 9.2 8.0 Eosinophils % 4.5 4.3 Basophils % 0.9 0.8 Nucleated Red Blood Cells % 0.0 0.0 Immature Granulocytes # 0.020 0.010 Neutrophils # 3.0 2.9 Lymphocytes # 1.7 1.4 Monocytes # 0.5 0.4 Eosinophils # 0.3 0.2 Basophils # 0.1 0.0 Nucleated Red Blood Cells # 0.0 0.0 Sodium Level 141 Potassium Level 3.5 Chloride Level 104 Carbon Dioxide Level 29 Anion Gap 8 Blood Urea Nitrogen 27 H Creatinine 1.65 H Est Glomerular Filtrat Rate mL/min 32 L Glucose Level 86 Hemoglobin A1c 5.3 Calcium Level 8.7 Total Bilirubin 0.6 Direct Bilirubin 0.00 Indirect Bilirubin 0.6 Aspartate Amino Transf (AST/SGOT) 22 Alanine Aminotransferase (ALT/SGPT) 17 Alkaline Phosphatase 120 Total Protein 6.1 # Albumin 3.4 Globulin 2.70 Albumin/Globulin Ratio 1.25 CA 125 Antigen 174.0 H PHILIPP CHANG MD March 03, 2019 23:39
--- NOTE | 2019-03-04 14:45 | DS ---
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 Has been on chemotherapy. Has previously required thoracentesis. Today presetns with shrotness of breath, frequent cough and pain fairly localized to R flank. She seems to relate the flank pain to SOB. In ED had negative V/Q scan. Severe hypertension on presentation now resolved. Currently feels much better. Requesting another lasix dose. Hospital Course 64 yo female with h/o ovarian cancer, DMII, hypertension presents with respiratory distress and severe hypertension Respiratory distress likely 2/2 hypertensive emergency. Resolved with improvement in BP. She was given a couple doses of lasix and BP controlled with clonidine. CT chest showed scattered small pulmonary mets CT also showed kidney stone with obstruction. 0.5 cm. She fernando prescribed tamsulosin at discharge which she requested prior to urological evaluation Hypertension: - Continue home meds and titrate to normotension DMII: - Basal/bolus insulin Home Meds Active Scripts Tamsulosin Hcl* (Flomax*) 0.4 Mg Cap.er.24h, 0.4 MG PO DAILY for 30 Days, #30 CAP Prov:ADRIAN FRANCO MD 03/03/19 Carvedilol* (Carvedilol*) 6.25 Mg Tablet, 6.25 MG PO BID for 60 Days, #120 TAB Prov:ADRIAN FRANCO MD 03/03/19 Reported Medications Cholecalciferol* (Vitamin D3*) 1,000 Unit Tablet, 1000 UNIT PO DAILY, TAB 03/02/19 Pantoprazole* (Protonix*) 40 Mg Tablet.dr, 40 MG PO DAILY, TAB 03/02/19 Metformin Hcl* (Metformin Hcl*) 500 Mg Tablet, 500 MG PO WITH BREAKFAST, #30 TAB 03/02/19 Clonidine Hcl* (Clonidine Hcl*) 0.1 Mg Tab, 0.1 MG PO DAILY PRN for BLOOD PRESSURE SUPPORT, TAB 03/02/19 Hydrochlorothiazide* (Hydrochlorothiazide*) 25 Mg Tab, 25 MG PO DAILY, #30 TAB 03/02/19 Discontinued Reported Medications Ibuprofen* (Motrin*) 600 Mg Tab, 600 MG PO Q6H PRN for PAIN, TAB 03/02/19 Olmesartan Medoxomil (Benicar) 40 Mg Tablet, 40 MG PO DAILY, #30 TAB 03/02/19 Discontinued Scripts Pantoprazole* (Protonix*) 40 Mg Tablet., 40 MG PO BID for 30 Days, TAB Prov:RACHNA BAUER MD 06/27/16 Ranitidine Hcl* (Zantac*) 150 Mg Tablet, 150 MG PO BID, #60 TAB Prov:FREDI CRAMER DO 06/09/16 Follow-up Plan Make an appointemnt to see a urologist in clinic if you continue to have problems with kidney stone See Dr Tadeo for further management of your ovarian cancer Change your blood pressure medications as I have prescribed Primary Care Provider Care Physician No Primary Pending Labs Laboratory Tests Test 03/03/19 15:33 White Blood Count 4.9 10^3/ul (4.8-10.8) Red Blood Count 2.53 10^6/ul (4.20-5.40) Hemoglobin 7.7 g/dl (12.0-16.0) Hematocrit 26.4 % (37.0-47.0) Mean Corpuscular Volume 104.3 fl (82.0-101.0) Mean Corpuscular Hemoglobin 30.4 pg (29.0-33.0) Mean Corpuscular Hemoglobin Concent 29.2 g/dl (32.0-37.0) Red Cell Distribution Width 22.9 % (11.5-14.5) Platelet Count 383 10^3/UL (140-415) Mean Platelet Volume 9.9 fl (7.4-10.4) Immature Granulocytes % 0.200 % (0.001-0.429) Neutrophils % 58.8 % (39.0-77.0) Lymphocytes % 27.9 % (15.0-51.0) Monocytes % 8.0 % (0.0-11.0) Eosinophils % 4.3 % (0.0-7.0) Basophils % 0.8 % (0.0-2.0) Nucleated Red Blood Cells % 0.0 /100WBC (0.0-0.0) Immature Granulocytes # 0.010 10^3/ul (0.0-0.031) Neutrophils # 2.9 10^3/ul (1.6-7.5) Lymphocytes # 1.4 10^3/ul (0.8-2.9) Monocytes # 0.4 10^3/ul (0.3-0.9) Eosinophils # 0.2 10^3/ul (0.0-0.5) Basophils # 0.0 10^3/ul (0.0-0.1) Nucleated Red Blood Cells # 0.0 10^3/ul (0.0-0.0) ADRIAN FRANCO MD March 04, 2019 14:45
== END 2019-03-03 18:30 | disposition home or self-care (01) | DRG 292 ==
LOC: E/R 11:45 → 6WM 15:26 → MS1 03-03 12:27
PROVIDERS: ADMIT Internal Medicine; ATTEND Internal Medicine
DX: I13.0 Hypertensive heart and chronic kidney disease with heart failure and stage 1 through stage 4 chronic kidney disease, or unspecified chronic kidney disease (principal); I16.1 Hypertensive emergency; C56.9 Malignant neoplasm of unspecified ovary; C78.6 Secondary malignant neoplasm of retroperitoneum and peritoneum; N20.2 Calculus of kidney with calculus of ureter; E11.9 Type 2 diabetes mellitus without complications; R13.10 Dysphagia, unspecified; I50.9 Heart failure, unspecified; N18.9 Chronic kidney disease, unspecified; D63.0 Anemia in neoplastic disease; K21.9 Gastro-esophageal reflux disease without esophagitis; E66.9 Obesity, unspecified; Z68.36 Body mass index [BMI] 36.0-36.9, adult
CPT/HCPCS: 36415; 36600; 71045; 71250; 74176; 78582; 80053; 81001; 82803; 83036; 83880; 84484; 85025; 85378; 85610; 85730; 86304; 93005; 93306; 96374; A9540; J0360; J1650; J1940; J2405; Q9967

== ENCOUNTER 2019-03-27 02:00 | Inpatient (IN) | payer OTHER ==
[~2019-03-27] VITALS: Ht 157.5 cm; Wt 89.8 kg
[~2019-03-27 02:00] MED LIST changes: +CARV6.2579 PO; +CHOL100062 PO; +CLON-379 PO; +HYDR25TA6 PO; +METF500T24 PO; -RANI150T35 PO; +TAMS-14 PO
[2019-03-27] MEDS ORDERED: morphine 4 MG/ML VIAL IV STA ×2 (03:11→06:59)
[2019-03-27] MEDS ORDERED: ONDANSETRON 4 MG INJ IV STA ×2 (03:11→06:59)
[2019-03-27] MEDS ORDERED: SOD CHLORIDE 0.9% 1,000 ML IV STA (03:11)
[2019-03-27] MEDS ORDERED: KETOROLAC 15 MG INJ IV STA (04:03)
--- NOTE | 2019-03-27 05:05 | ERD ---
ER Documentation Chief Complaint Chief Complaint AP, VOMITING X'S 1 DAY HPI This is a 64-year-old female history of ovarian cancer status post surgery approximately 6 years ago. The patient presents with abdominal pain, nausea and vomiting. Lack of bowel movement in the last 3 to 4 days. Patient also notes elevated blood pressure but no headache or chest pain or shortness of breath. Vomiting is nonbloody nonbilious. Pain is 8 out of 10 and constant. ROS All systems reviewed and are negative except as per history of present illness. Medications Home Meds Active Scripts Tamsulosin Hcl* (Flomax*) 0.4 Mg Cap.er.24h, 0.4 MG PO DAILY for 30 Days, #30 CAP Prov:ADRIAN FRANCO MD 03/03/19 Carvedilol* (Carvedilol*) 6.25 Mg Tablet, 6.25 MG PO BID for 60 Days, #120 TAB Prov:ADRIAN FRANCO MD 03/03/19 Reported Medications Cholecalciferol* (Vitamin D3*) 1,000 Unit Tablet, 1000 UNIT PO DAILY, TAB 03/02/19 Pantoprazole* (Protonix*) 40 Mg Tablet.dr, 40 MG PO DAILY, TAB 03/02/19 Metformin Hcl* (Metformin Hcl*) 500 Mg Tablet, 500 MG PO WITH BREAKFAST, #30 TAB 03/02/19 Clonidine Hcl* (Clonidine Hcl*) 0.1 Mg Tab, 0.1 MG PO DAILY PRN for BLOOD PRESSURE SUPPORT, TAB 03/02/19 Hydrochlorothiazide* (Hydrochlorothiazide*) 25 Mg Tab, 25 MG PO DAILY, #30 TAB 03/02/19 Allergies Allergies: Coded Allergies: No Known Allergies (Verified Allergy, Unknown, 03/02/19) PMhx/Soc History of Surgery: Yes (thoracentesis, hysterectomy ) Anesthesia Reaction: No Hx Neurological Disorder: No Hx Respiratory Disorders: Yes (bronchitis, sleep apnea ) Hx Cardiac Disorders: Yes (htn) Hx Psychiatric Problems: No Hx Miscellaneous Medical Probl: Yes (peritoneal carcinoma ) Hx Alcohol Use: No Hx Substance Use: No Hx Tobacco Use: No Smoking Status: Never smoker FmHx Family History: No diabetes Physical Exam Vitals Vital Signs Date Temp Pulse Resp B/P (MAP) Pulse Ox O2 O2 Flow FiO2 Time Delivery Rate 03/27/19 73 16 210/92 100 Nasal 2.0 06:04 (131) Cannula 03/27/19 98.1 89 18 189/89 95 Room Air 03:01 (122) 03/27/19 98.1 105 18 221/107 93 02:04 (145) Physical Exam General: Well developed, well nourished, no acute distress Head: Normocephalic, atraumatic. Eyes: Pupils equally reactive, EOM intact ENT: Moist mucous membranes Neck: Supple, no lymphadenopathy Respiratory: Lungs clear bilaterally, no distress Cardiovascular: RRR, no murmurs, rubs, or gallops Abdominal: Soft, mild generalized tenderness without rebound or guarding : Deferred MSK: No edema, no unilateral swelling, 5/5 strength Neurologic: Alert and oriented, moving all extremities, normal speech, no focal weakness, no cerebellar signs Skin: No rash Psych: Normal mood Result Diagram: 03/27/1940903/27/19409 Results 24 hrs Laboratory Tests Test 03/27/19 04:10 White Blood Count 12.9 10^3/ul Red Blood Count 3.57 10^6/ul Hemoglobin 10.4 g/dl Hematocrit 34.6 % Mean Corpuscular Volume 96.9 fl Mean Corpuscular Hemoglobin 29.1 pg Mean Corpuscular Hemoglobin Concent 30.1 g/dl Red Cell Distribution Width 20.8 % Platelet Count 370 10^3/UL Mean Platelet Volume 10.5 fl Immature Granulocytes % 0.500 % Neutrophils % 85.1 % Lymphocytes % 9.9 % Monocytes % 3.8 % Eosinophils % 0.2 % Basophils % 0.5 % Nucleated Red Blood Cells % 0.0 /100WBC Immature Granulocytes # 0.070 10^3/ul Neutrophils # 11.0 10^3/ul Lymphocytes # 1.3 10^3/ul Monocytes # 0.5 10^3/ul Eosinophils # 0.0 10^3/ul Basophils # 0.1 10^3/ul Nucleated Red Blood Cells # 0.0 10^3/ul Sodium Level 145 mmol/L Potassium Level 3.7 mmol/L Chloride Level 108 mmol/L Carbon Dioxide Level 26 mmol/L Anion Gap 11 Blood Urea Nitrogen 38 mg/dl Creatinine 1.41 mg/dl Est Glomerular Filtrat Rate mL/min 38 mL/min Glucose Level 126 mg/dl Calcium Level 9.8 mg/dl Total Bilirubin 0.4 mg/dl Direct Bilirubin 0.00 mg/dl Indirect Bilirubin 0.4 mg/dl Aspartate Amino Transf (AST/SGOT) 33 IU/L Alanine Aminotransferase (ALT/SGPT) 13 IU/L Alkaline Phosphatase 174 IU/L Total Protein 8.6 g/dl Albumin 4.2 g/dl Globulin 4.40 g/dl Albumin/Globulin Ratio 0.95 Lipase 141 U/L Current Medications Medications Dose Sig/Deepika Start Time Status Last (Trade) Ordered Route PRN Stop Time Admin Dose Reason Admin Sodium 1,000 ml @ Q1H STAT 03/27/19 DC 03/27/19 Chloride 1,000 mls/hr IV 03:11 04:11 03/27/19 04:10 Morphine 4 mg ONCE STAT 03/27/19 DC Sulfate IV 03:11 (morphine) 03/27/19 03:13 Ondansetron 4 mg ONCE STAT 03/27/19 DC 03/27/19 HCl (Zofran IV 03:11 04:06 Inj) 03/27/19 03:13 Ketorolac 15 mg ONCE STAT 03/27/19 DC 03/27/19 Tromethamine IV 04:03 04:06 (Toradol) 03/27/19 04:04 Procedures/MDM EKG, MONITORS, & DIAGNOSTIC IMAGING: CT a/p: Pending LAB INTERPRETATION: I reviewed the laboratory testing and it shows leukocytosis MEDICAL DECISION MAKING: The patient presents with abdominal pain and nausea vomiting. Possibly consistent with constipation but given prior surgical history concern for possible bowel obstruction. Blood pressure is elevated. Low concern for aortic process. Likely secondary to pain response. Patient needs CT imaging of the abdomen pelvis to rule out small bowel obstruction. ER COURSE: * IV fluids and pain medication provided * The patient symptoms are improving. Blood pressure continues to be elevated. Labetalol 10 mg provided * the patient CT imaging is pending at this time. The patient will be endorsed to the oncoming provider to follow-up on CT imaging and dispel the patient. CONSULTATION: None DISPOSITION PLAN: Pending CT imaging Departure Diagnosis: Primary Impression: Abdominal pain Abdominal location: generalized Qualified Codes: R10.84 - Generalized abdominal pain Additional Impressions: Nausea and vomiting Vomiting type: unspecified Vomiting Intractability: non-intractable Qualified Codes: R11.2 - Nausea with vomiting, unspecified Acute renal insufficiency Hypertensive urgency Condition: Stable OMERO ALMANZAR MD Mar 27, 2019 05:05
[2019-03-27] MEDS ORDERED: LABETALOL HCL 20MG INJ IV ONE (06:30)
[2019-03-27] MEDS ORDERED: LORAZEPAM 2 MG INJ IV ONE (07:00)
[2019-03-27] MEDS ORDERED: ONDANSETRON 4 MG INJ IV PRN (08:30)
[2019-03-27] MEDS ORDERED: ACETAMINOPHEN 325 MG TAB PO PRN (08:30)
[2019-03-27] MEDS ORDERED: ESOM40CA PO (08:31)
[2019-03-27] MEDS ORDERED: OLME40TA ORAL (08:31)
[2019-03-27 09:51] VITALS: Ht 157.5 cm; Wt 89.8 kg
[2019-03-27 10:07] VITALS: BP 191/88; PULSE 77; RESP 18
[2019-03-27 11:09] VITALS: BP 176/84; PULSE 68
--- NOTE | 2019-03-27 11:18 | CONS ---
Assessment/Plan Assessment/Plan Hospital Course (Demo Recall) IMPRESSION: 1. Recurrent ovarian carcinoma, peritoneal carcinomatosis disease, status post surgery 5 years ago followed by chemotherapy pt was diagnosed in 2013. SHE presented with metastatic BL pleural effusions , post thoracentesis in 2013, cytology was c/w metastatic ovarian cancer PT HAD debulking surgery by Dr. Rafael De Paz at [facility]. Since then she has been treated with chemotherapy with CARBO /TAXOL She also had a secondary tumor debulking in [address] [facility]. I has been treating her recurrences, and now she is on her third regimen, currently on Doxil and Avastin, last dose is 1 week ago. 2. Possible colonic obstruction according to CT scan of abdomen and pelvis without contrast, C/W SBO NG TUBE, IVF, PAIN CONTROL, NPO GYNEONC EVAL NOTE THAT PT IS POST AVASTIN AND WITH HIGH RISK F PERFORATION POST SURGERY GI consult for consideration of colonoscopy with a colonic stent. 3. ABD PAIN 2 TO # 2 4. Recent chemotherapy with Doxil/Avastin. 5. ARF IVF MONITOR RENAL FUNCTION 6. chronic anemia, 7. renal calculi, hypertension, 8. DMII 9. HX Constipation 10. Hypertension 11. Leukocytosis, reactive Obtain blood cultures. No fevers. Will keep off antibiotics 12. Chronic anemia monitor Consultation Date/Type/Reason Admit Date/Time Mar 27, 2019 at 08:15 Date of Consultation: Mar 27, 2019 Type of Consult [facility] Reason for Consultation ovarian cancer Requesting Provider: DAVID QUIROZ Date/Time of Note DATE: 03/27/19 TIME: 11:17 Hx of Present Illness the patient is a 64 -year-old Vincentian and Cymro speaking female with METASTATIC OVARIAL CANCER WITH peritoneal carcinomatosis ON CHEMOTHERAPY. pt was diagnosed in 2013. SHE presented with metastatic BL pleural effusions , post thoracentesis in 2013, cytology was c/w metastatic ovarian cancer PT HAD debulking surgery by Dr. Rafael De Paz at [facility]. Since then she has been treated with chemotherapy with CARBO /TAXOL She also had a secondary tumor debulking in [address] [facility]. I has been treating her recurrences, and now she is on her third regimen, currently on Doxil and Avastin, last dose is 1 week ago. The patient was admitted with a 3-day history of abdominal pain, no bowel m ovements and CT scan of abdomen and pelvis without contrast was done on admission demonstrated colonic obstruction in the mid descending colon. There was also carcinomatosis and liver lesions. her CA-125 was elevated at 300+ and she does have active disease. ALLERGIES: Patient has no known drug allergies. PAST MEDICAL HISTORY: Ovarian cancer is stated per above. PAST SURGICAL HISTORY: Also stated per above. REVIEW OF SYSTEMS: Significant for abdominal pain and no bowel movement for 3 days. Past Medical History Home Meds Active Scripts Carvedilol* (Carvedilol*) 6.25 Mg Tablet, 6.25 MG PO BID for 60 Days, #120 TAB Prov:ADRIAN FRANCO MD 03/03/19 Reported Medications Esomeprazole Mag Trihydrate (Nexium) 40 Mg Capsule.dr, 40 MG PO DAILY, #30 CAP 03/27/19 Olmesartan Medoxomil (Olmesartan Medoxomil) 40 Mg Tablet, 1 TAB ORAL DAILY 03/27/19 Cholecalciferol* (Vitamin D3*) 1,000 Unit Tablet, 1000 UNIT PO DAILY, TAB 03/02/19 Pantoprazole* (Protonix*) 40 Mg Tablet.dr, 40 MG PO DAILY, TAB 03/02/19 Metformin Hcl* (Metformin Hcl*) 500 Mg Tablet, 500 MG PO WITH BREAKFAST, #30 TAB 03/02/19 Clonidine Hcl* (Clonidine Hcl*) 0.1 Mg Tab, 0.1 MG PO DAILY PRN for BLOOD PRESSURE SUPPORT, TAB 03/02/19 Hydrochlorothiazide* (Hydrochlorothiazide*) 25 Mg Tab, 25 MG PO DAILY, #30 TAB 03/02/19 Discontinued Scripts Tamsulosin Hcl* (Flomax*) 0.4 Mg Cap.er.24h, 0.4 MG PO DAILY for 30 Days, #30 CAP Prov:ADRIAN FRANCO MD 03/03/19 Medications Current Medications Ondansetron HCl (Zofran Inj) 4 mg BRIDGE ORDER PRN IV NAUSEA/VOMITING; Start 03/27/19 at 08:30; Stop 03/28/19 at 08:29 Acetaminophen (Tylenol Tab) 650 mg ER BRIDGE PRN PO .MILD PAIN 1-3 OR TEMP; Start 03/27/19 at 08:30; Stop 03/28/19 at 08:29 Morphine Sulfate (morphine) 2 mg Q4H PRN IV SEVERE PAIN LEVEL 7-10; Start 03/27/19 at 11:30 Hydralazine HCl (Apresoline) 10 mg Q6H PRN IV ELEVATED BLOOD PRESSURE; Start 03/27/19 at 11:30 Sodium Chloride 1,000 ml @ 25 mls/hr Q24H IV ; Start 03/27/19 at 11:30 Allergies: Coded Allergies: No Known Allergies (Verified Allergy, Unknown, 03/27/19) Past Surgical History Past Surgical Hx: no surgical history, appendectomy Social History Smoking Status: Never smoker Exam/Review of Systems Exam Vitals Vital Signs Date Temp Pulse Resp B/P (MAP) Pulse Ox O2 O2 Flow FiO2 Time Delivery Rate 03/27/19 68 176/84 11:09 (114) 03/27/19 98.0 18 99 Room Air 10:07 03/27/19 2.0 08:31 Exam PHYSICAL EXAMINATION: GENERAL: The patient is in no apparent distress. HEENT: Within normal limits. LUNGS: Clear to auscultation. CARDIAC: Regular. ABDOMEN: Soft, tender on deep palpation. Not significantly distended. No rebound tenderness. PELVIC: Deferred. EXTREMITIES: Negative. Results Result Diagram: 03/27/19 0410 03/27/19 0410 Results 24hrs Laboratory Tests Test 03/27/19 04:10 White Blood Count 12.9 #H Red Blood Count 3.57 #L Hemoglobin 10.4 #L Hematocrit 34.6 #L Mean Corpuscular Volume 96.9 Mean Corpuscular Hemoglobin 29.1 Mean Corpuscular Hemoglobin Concent 30.1 L Red Cell Distribution Width 20.8 H Platelet Count 370 Mean Platelet Volume 10.5 H Immature Granulocytes % 0.500 H Neutrophils % 85.1 H Lymphocytes % 9.9 L Monocytes % 3.8 Eosinophils % 0.2 Basophils % 0.5 Nucleated Red Blood Cells % 0.0 Immature Granulocytes # 0.070 H Neutrophils # 11.0 H Lymphocytes # 1.3 Monocytes # 0.5 Eosinophils # 0.0 Basophils # 0.1 Nucleated Red Blood Cells # 0.0 Sodium Level 145 H Potassium Level 3.7 Chloride Level 108 Carbon Dioxide Level 26 Anion Gap 11 Blood Urea Nitrogen 38 H Creatinine 1.41 H Est Glomerular Filtrat Rate mL/min 38 L Glucose Level 126 Calcium Level 9.8 Total Bilirubin 0.4 Direct Bilirubin 0.00 Indirect Bilirubin 0.4 Aspartate Amino Transf (AST/SGOT) 33 Alanine Aminotransferase (ALT/SGPT) 13 Alkaline Phosphatase 174 H Total Protein 8.6 H Albumin 4.2 Globulin 4.40 H Albumin/Globulin Ratio 0.95 Lipase 141 Imaging Imaging PROCEDURE: CT of the abdomen and pelvis without contrast CLINICAL INDICATION: Abdominal pain. History of ovarian cancer TECHNIQUE: Spiral CT images through the abdomen and pelvis without the use of oral and without the use of intravenous contrast. The administered radiation dose is CTDI 21.01 mGy and DLP 1240.99 mGy-cm. One or more of the following dose reduction techniques were used: automated exposure control, adjustment of the mA and/or kV according to patient size, or use of iterative reconstruction technique. DICOM images are available. COMPARISON: CT 03/02/2019 FINDINGS: The study is limited by lack of intravenous contrast, and presence of motion related artifact. Lower thorax: Linear opacities suggesting atelectasis or scarring along with slight thickening along right and left sided fissures, unchanged as is the appearance of several small noncalcified left lower lobe nodules measuring up to 4 mm in diameter. 3-4 mm noncalcified left lower lobe nodules (series 3 image 7 and image 11). Liver: Stable including multiple small round hypodense foci , the 2 largest of which again measure 3.1 cm (series 3 image 31) within the medial segment left lobe and 3.2 cm (series 3 image 58) within the posterior segment right lobe. Biliary: Largely related calcified gallstone partially obscured by motion artifact as is the gallbladder. No biliary ductal dilatation is seen. Pancreas: Mild pancreatic parenchymal atrophy, stable. Spleen: The spleen is unremarkable in appearance Adrenal glands: Unremarkable in appearance. No focal nodule.. Genitourinary: Persistent or recurrent moderate right hydronephrosis and hydroureter that is similar to prior, with transition in the right pelvis on axial images 140 - 146 where there is no longer a stone present. No left-sided urinary tract stone or secondary signs of urinary tract obstruction.. The bladder is unremarkable in appearance.. Gastrointestinal Tract: There is some air and fluid within the stomach. Small bowel loops do not appear to be overly dilated. There is now diffuse colonic dilatation from the cecum to the mid - distal descending colon with transition on axial image 88-96, lateral to which there are surgical clips present. Beyond this the distal descending and proximal - mid sigmoid are decompressed with some stool in the distal sigmoid and rectum. Appendix is not seen. Lymph nodes: Slightly spiculated mesenteric adenopathy versus implants in the lower abdomen on axial image 124, without significant change with other mesenteric nodules are implants in the right upper quadrant partially obscured by motion artifact.. Vascular structures: Atherosclerotic vascular calcifications. No abdominal aortic aneurysm.. Peritoneal cavity: No free air or loculated fluid. Trace free fluid is seen within the lower abdomen and pelvis. Reproductive Organs: Previous hysterectomy. There is again round soft tissue prominence at the vaginal cuff, centered to the right of midline, and unchanged. Musculoskeletal: Osteopenia and degenerative changes, with bilateral L5 pars defects and grade 2 anterolisthesis at L5-S1, stable.. No new acute or aggressive appearing osseous abnormality.. IMPRESSION: New findings of colonic obstruction with transition at the mid descending colonic level, presumably on a neoplastic etiology, perhaps due to metastatic disease with serosal implant rather than an underlying separate primary colonic malignancy. There is no associated free air or abscess. Dr. Ocampo was notified at time of dictation 0640 hours. Findings of metastatic disease again seen with lung nodules in the left base, several hepatic lesions, and evidence of carcinomatosis including peritoneal and mesenteric implants. There is again soft tissue at the level of the vaginal cuff that may represent a metastatic implant, and which may be accounting for the persistent or recurrent moderate right hydronephrosis and hydroureter with a transition seen along this level, given the interval passage of the prior distal ureter stone. Medications Medication Current Medications Ondansetron HCl (Zofran Inj) 4 mg BRIDGE ORDER PRN IV NAUSEA/VOMITING; Start 03/27/19 at 08:30; Stop 03/28/19 at 08:29 Acetaminophen (Tylenol Tab) 650 mg ER BRIDGE PRN PO .MILD PAIN 1-3 OR TEMP; Start 03/27/19 at 08:30; Stop 03/28/19 at 08:29 Morphine Sulfate (morphine) 2 mg Q4H PRN IV SEVERE PAIN LEVEL 7-10; Start 03/27/19 at 11:30 Hydralazine HCl (Apresoline) 10 mg Q6H PRN IV ELEVATED BLOOD PRESSURE; Start 03/27/19 at 11:30 Sodium Chloride 1,000 ml @ 25 mls/hr Q24H IV ; Start 03/27/19 at 11:30 PHILIPP CHANG MD Mar 27, 2019 11:18
[2019-03-27] MEDS ORDERED: hydrALAzine 20 MG INJ IV PRN (11:30)
[2019-03-27] MEDS ORDERED: morphine 2 MG INJ IV PRN (11:30)
[2019-03-27] MEDS: SOD CHLORIDE 0.45% 1,000 ML IV SCH (11:37)
[2019-03-27] MEDS ORDERED: NACL 0.9% 3 ML SYG IV SCH (13:00)
--- NOTE | 2019-03-27 13:02 | HP ---
Date/Time of Note Date/Time of Note DATE: 03/27/19 TIME: 13:02 Assessment/Plan VTE Prophylaxis SCD applied (from Nsg): Yes Pharmacological prophylaxis: NA/contraindicated Pharm contraindication: low risk/ambulating Lines/Catheters IV Catheter Type (from Nrsg): Saline Lock Urinary Cath still in place: No Assessment/Plan Hospital Course SUBJECTIVE: Lying in bed, having generalized diffuse abdominal pain unrelieved by morphine. OBJECTIVE: Vital signs-see below PHYSICAL EXAM: Constitutional: Adequately built,not in acute distress. HEENT: Head atraumatic and normocephalic. Eyes: Extraocular muscles intact. Anicteric sclerae. Pupils equal bilaterally, reactive to light. NECK: Supple without lymph node. CHEST: Clear and good breath sounds equally. No wheezing. No rhonchi. HEART: S1, S2. Regular rate and rhythm. ABDOMEN: Tenderness to all 4 quadrants. Abdomen soft. Hypoactive bowel sounds EXTREMITIES: No cyanosis, clubbing or edema. NEUROLOGIC: Alert and oriented x3. No focal deficit. No sensory deficit. PSYCHOSOCIAL: No signs of depression. INTEGUMENTARY: No open wounds. ASSESSMENT AND PLAN: 64 yo F with h/o metastatic ovarian carcinoma with peritoneal carcinomatosis disease, status post surgery 5 years ago followed by chemotherapy, chronic anemia, renal calculi, hypertension, dm2,presented to the emergency room with 3- day duration of intractable abdominal pain and constipation associated with nausea and nonbilious/nonbloody vomiting, found to have bowel obstruction.... Bowel obstruction likely related to ovarian malignancy -Status post NG tube placed. Continue decompression/LIS -PROFESSOR OF HISTORY oncology surgeon Dr. Francisco has been notified by oncologist and ER team. -Strict n.p.o. status. IV fluids, pain control. -f/u surgical recs. Constipation -[id number] ago -would abstain from enema/laxatives 2/2 bowel obstn until seen by surgery -Encourage ambulation -Fluids h/o metastatic ovarian carcinoma with peritoneal carcinomatosis disease -on chemo every 2wks -Being followed by oncologist. Acute kidney injury on CKD -Acute kidney injury likely secondary to hemodynamics/volume contraction -Fluids -Will consider android programmer if renal function worsens. DMII -Basal/bolus insulin Hypertension -Hold oral meds -IV hydralazine PRN for SBP above 160. Leukocytosis, likely reactive -Obtain blood cultures. No fevers. Will keep off antibiotics Chronic anemia -Stable H&H. Continue to monitor DVT prophylaxis: SCDs PUD prophylaxis: IV Pepcid Rest of the management depend on clinical course and input from consultants. Approximately 60 m spent on this history and physical. Patient was seen in collaboration with Dr. Russo. Result Diagram: 03/27/19 0410 03/27/19 0410 Results 24hrs Laboratory Tests Test 03/27/19 04:10 White Blood Count 12.9 #H Red Blood Count 3.57 #L Hemoglobin 10.4 #L Hematocrit 34.6 #L Mean Corpuscular Volume 96.9 Mean Corpuscular Hemoglobin 29.1 Mean Corpuscular Hemoglobin Concent 30.1 L Red Cell Distribution Width 20.8 H Platelet Count 370 Mean Platelet Volume 10.5 H Immature Granulocytes % 0.500 H Neutrophils % 85.1 H Lymphocytes % 9.9 L Monocytes % 3.8 Eosinophils % 0.2 Basophils % 0.5 Nucleated Red Blood Cells % 0.0 Immature Granulocytes # 0.070 H Neutrophils # 11.0 H Lymphocytes # 1.3 Monocytes # 0.5 Eosinophils # 0.0 Basophils # 0.1 Nucleated Red Blood Cells # 0.0 Sodium Level 145 H Potassium Level 3.7 Chloride Level 108 Carbon Dioxide Level 26 Anion Gap 11 Blood Urea Nitrogen 38 H Creatinine 1.41 H Est Glomerular Filtrat Rate mL/min 38 L Glucose Level 126 Calcium Level 9.8 Total Bilirubin 0.4 Direct Bilirubin 0.00 Indirect Bilirubin 0.4 Aspartate Amino Transf (AST/SGOT) 33 Alanine Aminotransferase (ALT/SGPT) 13 Alkaline Phosphatase 174 H Total Protein 8.6 H Albumin 4.2 Globulin 4.40 H Albumin/Globulin Ratio 0.95 Lipase 141 CA 125 Antigen 400.0 H HPI/ROS Admit Date/Time Admit Date/Time Mar 27, 2019 at 08:15 Hx of Present Illness This is a 64-year-old female with a history of metastatic ovarian carcinoma with paternal disease, status post surgery 5 years ago followed by chemotherapy, chronic anemia, renal calculi, hypertension, presented to the emergency room with 3-day duration of intractable abdominal pain associated with nausea and nonbilious/nonbloody vomiting. Patient's last bowel movement was 4 days ago. She denied fever, chills, chest pain, palpitation, shortness of breath, dizziness, headache, diarrhea or other constitutional symptoms. In the emergency room, initial CT abdomen and pelvis without contrast showed new findings of colonic obstruction with transition at the mid descending colonic level, presumably on a neoplastic etiology perhaps due to metastatic disease with serosal implant rather than an underlying separate primary colonic malignancy. There is no associated free air or abscess. There are also shown evidence of metastatic disease with lung nodules in the left base, several hepatic lesions and evidence of carcinomatosis including peritoneal and mesenteric implants. Labs showed white count 12,900, hemoglobin 10.4, hematocrit 34.6, sodium 145, BUN 38, creatinine 1.41, alkaline phosphatase 174. Patient is already seen by her oncologist who also contacted PROFESSOR OF HISTORY surgeon Dr. Souza for consultation. ROS A 12 point review of system was assessed and is negative other than what is mentioned in the HPI PMH/Family/Social Past Medical History see hpi Medications Current Medications Morphine Sulfate (morphine) 2 mg Q4H PRN IV SEVERE PAIN LEVEL 7-10 Last administered on 03/27/19at 11:33; Admin Dose 2 MG; Start 03/27/19 at 11:30 Sodium Chloride 1,000 ml @ 25 mls/hr Q24H IV Last administered on 03/27/19at 11:37; Admin Dose 25 MLS/HR; Start 03/27/19 at 11:30 IV Flush (NS 3 ml) 3 ml PER PROTOCOL IV ; Start 03/27/19 at 13:00 Ondansetron HCl (Zofran Inj) 4 mg Q6H PRN IV NAUSEA/VOMITING; Start 03/27/19 at 13:00 Famotidine (Pepcid Iv) 20 mg DAILY IV ; Start 03/27/19 at 13:00 Hydralazine HCl (Apresoline) 10 mg Q6H PRN IV sbp>160; Start 03/27/19 at 13:00 Coded Allergies: No Known Allergies (Verified Allergy, Unknown, 03/27/19) Past Surgical History see hpi Past Surgical Hx: no surgical history, appendectomy Family History Significant Family History: no pertinent family hx Social History Denied hx of alcohol,smoking or drug use Smoking Status: Never smoker Exam/Review of Systems Vital Signs Vitals Vital Signs Date Temp Pulse Resp B/P (MAP) Pulse Ox O2 O2 Flow FiO2 Time Delivery Rate 03/27/19 68 176/84 11:09 (114) 03/27/19 98.0 18 99 Room Air 10:07 03/27/19 2.0 08:31 ESTEFANI NELSON NP Mar 27, 2019 13:02
[2019-03-27] MEDS ORDERED: BISACODYL 10 MG SUPP PR PRN (14:00)
[2019-03-27] MEDS ORDERED: BISACODYL (EC) 5 MG TAB PO ONE (14:00)
[2019-03-27 14:29] VITALS: BP 103/59; PULSE 85; RESP 17
[2019-03-27] MEDS: FAMOTIDINE 20 MG INJ IV SCH (15:02)
[2019-03-27] MEDS: ONDANSETRON 4 MG INJ IV PRN ×2 (18:04→23:50)
[2019-03-27 20:22] VITALS: BP 148/74; PULSE 80; RESP 18
[2019-03-27] MEDS: HYDROmorphONE 1 MG/ML SYG IV PRN (23:50)
[2019-03-28 02:37] VITALS: BP 110/55; PULSE 75; RESP 18
[2019-03-28] MEDS: SOD CHLORIDE 0.45% 1,000 ML IV SCH ×3 (04:02→18:42)
[2019-03-28 07:52] VITALS: BP 130/61; PULSE 71; RESP 20
[2019-03-28] MEDS: FAMOTIDINE 20 MG INJ IV SCH (09:21)
[2019-03-28] MEDS: HYDROmorphONE 1 MG/ML SYG IV PRN ×2 (10:48→23:06)
--- NOTE | 2019-03-28 12:51 | CONS ---
DATE OF ADMISSION: 03/27/2019 DATE OF CONSULTATION: 03/28/2019 HISTORY OF PRESENT ILLNESS: This is a 64-year-old white female who has a history of ovarian cancer d iagnosed in 2013. At that time, surgery was performed by Dr. Rafael De Paz at [facility]. Si nce then she has been treated with chemotherapy by Dr. Tadeo. She also had a secondary tumor mumtaz ulking in 2015 according to the patient at [facility]. Dr. Tadeo has been t reating her recurrences, and now she is her third regimen and is currently under Doxil and Avastin, l ast dose is 1 week ago. The oncologic history is not documented here in the hospital computer charti ng. The patient was admitted. The patient presented with a 3-day history of abdominal pain, no cam l movements and CT scan of abdomen and pelvis without contrast was done yesterday, demonstrating colo maria eugenia obstruction in the mid descending colon. There was also carcinomatosis and liver lesions. Accor ding to Dr. Tadeo her CA-125 was elevated at 400 and she does have active disease. ALLERGIES: Patient has no known drug allergies. PAST MEDICAL HISTORY: Ovarian cancer is stated per above. PAST SURGICAL HISTORY: Also stated per above. REVIEW OF SYSTEMS: Significant for abdominal pain and no bowel movement for 3 days. PHYSICAL EXAMINATION: GENERAL: The patient is in no apparent distress. VITAL SIGNS: She is afebrile. Pulse is in the 70s, blood pressure within normal limits. She is sat urating 97% on room air. HEENT: Within normal limits. LUNGS: Clear to auscultation. CARDIAC: Regular. ABDOMEN: Soft, tender on deep palpation. Not significantly distended. No rebound tenderness. PELVIC: Deferred. EXTREMITIES: Negative. IMPRESSION: 1. Recurrent ovarian carcinoma. 2. Possible colonic obstruction according to CT scan of abdomen and pelvis without contrast. 3. No bowel movement for 3 days. 4. Recent chemotherapy with Doxil/Avastin. RECOMMENDATIONS: 1. There is a high risk of surgical complications within 6-week window of Avastin. 2. Any surgical intervention can lead to bowel perforation from anastomosis. 3. I recommend GI consult for consideration of colonoscopy with a colonic stent. 4. I will check her KUB today to look at the status of her stool pattern and gas pattern. If patien t deteriorates and requires immediate surgical intervention, I recommend obtaining surgical oncology consultation for combined surgery due to the complexity of her GI issues. I have discussed my plan with Dr. Tadeo. Dictated By: SURJIT VALENTIN/DANAE Conf#: [id number] DID#: [id number] CC: REID COLBERT MD;*EndCC*
[2019-03-28 14:04] VITALS: BP 122/59; PULSE 70; RESP 20
--- NOTE | 2019-03-28 15:54 | PN ---
Date/Time of Note Date/Time of Note DATE: 03/28/19 TIME: 15:52 Assessment/Plan VTE Prophylaxis Risk score (from Nsg)>0 risk: 6 SCD applied (from Nsg): Yes Pharmacological prophylaxis: heparin Lines/Catheters IV Catheter Type (from Nrsg): Peripheral IV Urinary Cath still in place: No Assessment/Plan Hospital Course 64 yo female with metastatic ovarian cancer for years with good response to chemotherapy presents with n/v, found to have likely large bowel obstruction - NG tube for now - KUB to assess - Appreciate Dr Francisco consultation - Will consult GI for consideration of colonic stent - IV fluids for now - Pain control Result Diagram: 03/28/19 0539 03/28/19 0539 Results 24hrs Laboratory Tests Test 03/28/19 05:39 White Blood Count 9.2 # Red Blood Count 3.10 L Hemoglobin 9.1 L Hematocrit 30.9 L Mean Corpuscular Volume 99.7 Mean Corpuscular Hemoglobin 29.4 Mean Corpuscular Hemoglobin Concent 29.4 L Red Cell Distribution Width 21.1 H Platelet Count 342 Mean Platelet Volume 10.2 Immature Granulocytes % 0.300 Neutrophils % 78.3 H Lymphocytes % 14.7 L Monocytes % 5.6 Eosinophils % 0.4 Basophils % 0.7 Nucleated Red Blood Cells % 0.0 Immature Granulocytes # 0.030 Neutrophils # 7.2 Lymphocytes # 1.4 Monocytes # 0.5 Eosinophils # 0.0 Basophils # 0.1 Nucleated Red Blood Cells # 0.0 Sodium Level 148 H Potassium Level 3.5 Chloride Level 105 Carbon Dioxide Level 29 Anion Gap 14 H Blood Urea Nitrogen 39 H Creatinine 1.73 H Est Glomerular Filtrat Rate mL/min 30 L Glucose Level 104 Hemoglobin A1c 4.8 Calcium Level 9.6 Phosphorus Level 5.5 H Magnesium Level 2.0 Total Bilirubin 0.5 Direct Bilirubin 0.00 Indirect Bilirubin 0.5 Aspartate Amino Transf (AST/SGOT) 33 Alanine Aminotransferase (ALT/SGPT) 16 Alkaline Phosphatase 157 H Total Protein 7.5 # Albumin 3.9 Globulin 3.60 H Albumin/Globulin Ratio 1.08 Triglycerides Level 186 H Cholesterol Level 237 H LDL Cholesterol, Calculated 145 HDL Cholesterol 55 Cholesterol/HDL Ratio 4.3 Subjective 24 Hr Interval Summary Free Text/Dictation Minimal NG tube output Not passing stool Comfortable Exam/Review of Systems Exam Vitals Vital Signs Date Temp Pulse Resp B/P (MAP) Pulse Ox O2 O2 Flow FiO2 Time Delivery Rate 03/28/19 98.3 70 20 122/59 97 14:04 (80) 03/27/19 Room Air 10:07 03/27/19 2.0 08:31 Intake and Output 03/27/19 03/27/19 03/28/19 1515:00 23:00 07:00 IntakeIntake Total 175 ml 975 ml OutputOutput Total 200 ml BalanceBalance 175 ml 775 ml Constitutional: alert, oriented, well developed Psych: no complaints, nl mood/affect Head: normocephalic, atraumatic Eyes: nl conjunctiva, EOMI, nl lids, nl sclera, PERRL ENMT: nl external ears & nose, nl lips & teeth, nl nasal mucosa & septum Neck: supple, non-tender Respiratory: clear to auscultation, normal air movement Cardiovascular: regular rate and rhythm, nl pulses Gastrointestinal: soft, nl liver, spleen, non-tender Musculoskeletal: nl extremities to inspection, nl gait and stance Extremities: normal pulses Neurological: REPOSSESSOR II-XII intact, nl mental status, nl speech, nl strength Skin: nl turgor; No rash or lesions Lymph: nl lymph nodes Results Results 24hrs Laboratory Tests Test 03/28/19 05:39 White Blood Count 9.2 # Red Blood Count 3.10 L Hemoglobin 9.1 L Hematocrit 30.9 L Mean Corpuscular Volume 99.7 Mean Corpuscular Hemoglobin 29.4 Mean Corpuscular Hemoglobin Concent 29.4 L Red Cell Distribution Width 21.1 H Platelet Count 342 Mean Platelet Volume 10.2 Immature Granulocytes % 0.300 Neutrophils % 78.3 H Lymphocytes % 14.7 L Monocytes % 5.6 Eosinophils % 0.4 Basophils % 0.7 Nucleated Red Blood Cells % 0.0 Immature Granulocytes # 0.030 Neutrophils # 7.2 Lymphocytes # 1.4 Monocytes # 0.5 Eosinophils # 0.0 Basophils # 0.1 Nucleated Red Blood Cells # 0.0 Sodium Level 148 H Potassium Level 3.5 Chloride Level 105 Carbon Dioxide Level 29 Anion Gap 14 H Blood Urea Nitrogen 39 H Creatinine 1.73 H Est Glomerular Filtrat Rate mL/min 30 L Glucose Level 104 Hemoglobin A1c 4.8 Calcium Level 9.6 Phosphorus Level 5.5 H Magnesium Level 2.0 Total Bilirubin 0.5 Direct Bilirubin 0.00 Indirect Bilirubin 0.5 Aspartate Amino Transf (AST/SGOT) 33 Alanine Aminotransferase (ALT/SGPT) 16 Alkaline Phosphatase 157 H Total Protein 7.5 # Albumin 3.9 Globulin 3.60 H Albumin/Globulin Ratio 1.08 Triglycerides Level 186 H Cholesterol Level 237 H LDL Cholesterol, Calculated 145 HDL Cholesterol 55 Cholesterol/HDL Ratio 4.3 Medications Medication Current Medications Sodium Chloride 1,000 ml @ 75 mls/hr [id number] IV Last administered on 03/28/19at 04:02; Admin Dose 75 MLS/HR; Start 03/27/19 at 11:30 IV Flush (NS 3 ml) 3 ml PER PROTOCOL IV ; Start 03/27/19 at 13:00 Ondansetron HCl (Zofran Inj) 4 mg Q6H PRN IV NAUSEA/VOMITING Last administered on 03/27/19at 23:50; Admin Dose 4 MG; Start 03/27/19 at 13:00 Famotidine (Pepcid Iv) 20 mg DAILY IV Last administered on 03/28/19at 09:21; Admin Dose 20 MG; Start 03/27/19 at 13:00 Hydralazine HCl (Apresoline) 10 mg Q6H PRN IV sbp>160; Start 03/27/19 at 13:00 Hydromorphone HCl (Dilaudid) 1 mg Q4H PRN IV SEVERE PAIN LEVEL 7-10 Last administered on 03/28/19at 10:48; Admin Dose 1 MG; Start 03/27/19 at 14:00 ADRIAN FRANCO MD Mar 28, 2019 15:54
[2019-03-28] MEDS ORDERED: NA PHOSPHATE/BIPHOS 133 ML ENEMA PR ONE (17:30)
[2019-03-28 20:21] VITALS: BP 142/67; PULSE 93; RESP 18
[2019-03-28] MEDS: ACCU-CHEK XX SCH (21:00)
--- NOTE | 2019-03-28 22:28 | CONS ---
Assessment/Plan Assessment/Plan Hospital Course (Demo Recall) IMPRESSION: 1. Recurrent ovarian carcinoma, peritoneal carcinomatosis disease, status post surgery 5 years ago followed by chemotherapy pt was diagnosed in 2013. SHE presented with metastatic BL pleural effusions , post thoracentesis in 2013, cytology was c/w metastatic ovarian cancer PT HAD debulking surgery by Dr. Rafael De Paz at [facility]. Since then she has been treated with chemotherapy with CARBO /TAXOL She also had a secondary tumor debulking in 2016 at [facility]. I has been treating her recurrences, and now she is on her third regimen, currently on Doxil and Avastin, last dose is 1 week ago. 2. Possible colonic obstruction according to CT scan of abdomen and pelvis without contrast, C/W SBO NG TUBE, IVF, PAIN CONTROL, NPO GYNEONC F-UP NOTE THAT PT IS POST AVASTIN AND WITH HIGH RISK FOR PERFORATION POST SURGERY GI consult for consideration of colonoscopy with a colonic stent. DR BROOKS CALLED 3. ABD PAIN 2 TO # 2 4. Recent chemotherapy with Doxil/Avastin. 5. ARF IVF MONITOR RENAL FUNCTION 6. chronic anemia, 7. renal calculi, hypertension, 8. DMII 9. HX Constipation 10. Hypertension 11. Leukocytosis, reactive Obtain blood cultures. No fevers. Will keep off antibiotics 12. Chronic anemia monitor Consultation Date/Type/Reason Admit Date/Time Mar 27, 2019 at 08:15 Initial Consult Date 03/27/19 Type of Consult [facility] Requesting Provider: DAVID QUIROZ Date/Time of Note DATE: 03/28/19 TIME: 22:27 24 HR Interval Summary Free Text/Dictation ALL NOTED D/W DR ELIANA ROQUE IN WITH lower intermittent NG tube wall suction Exam/Review of Systems Exam Vitals Vital Signs Date Temp Pulse Resp B/P (MAP) Pulse Ox O2 O2 Flow FiO2 Time Delivery Rate 03/28/19 98.3 93 18 142/67 93 20:21 (92) 03/27/19 Room Air 10:07 03/27/19 2.0 08:31 Intake and Output 03/27/19 03/27/19 03/28/19 1515:00 23:00 07:00 IntakeIntake Total 175 ml 975 ml OutputOutput Total 200 ml BalanceBalance 175 ml 775 ml Exam Constitutional: Adequately built,not in acute distress. HEENT: Head atraumatic and normocephalic. Eyes: Extraocular muscles intact. Anicteric sclerae. Pupils equal bilaterally, reactive to light. NECK: Supple without lymph node. CHEST: Clear and good breath sounds equally. No wheezing. No rhonchi. HEART: S1, S2. Regular rate and rhythm. ABDOMEN: Tenderness to all 4 quadrants. Abdomen soft. Hypoactive bowel sounds EXTREMITIES: No cyanosis, clubbing or edema. NEUROLOGIC: Alert and oriented x3. No focal deficit. No sensory deficit. PSYCHOSOCIAL: No signs of depression. INTEGUMENTARY: No open wounds. Results Result Diagram: 03/28/19 0539 03/28/19 1740 Results 24hrs Laboratory Tests Test 03/28/19 05:39 03/28/19 17:40 03/28/19 21:46 White Blood Count 9.2 # Red Blood Count 3.10 L Hemoglobin 9.1 L Hematocrit 30.9 L Mean Corpuscular Volume 99.7 Mean Corpuscular Hemoglobin 29.4 Mean Corpuscular Hemoglobin Concent 29.4 L Red Cell Distribution Width 21.1 H Platelet Count 342 Mean Platelet Volume 10.2 Immature Granulocytes % 0.300 Neutrophils % 78.3 H Lymphocytes % 14.7 L Monocytes % 5.6 Eosinophils % 0.4 Basophils % 0.7 Nucleated Red Blood Cells % 0.0 Immature Granulocytes # 0.030 Neutrophils # 7.2 Lymphocytes # 1.4 Monocytes # 0.5 Eosinophils # 0.0 Basophils # 0.1 Nucleated Red Blood Cells # 0.0 Sodium Level 148 H 141 Potassium Level 3.5 3.7 Chloride Level 105 105 Carbon Dioxide Level 29 27 Anion Gap 14 H 9 # Blood Urea Nitrogen 39 H 40 H Creatinine 1.73 H 1.43 H Est Glomerular Filtrat Rate mL/min 30 L 37 L Glucose Level 104 98 Hemoglobin A1c 4.8 Calcium Level 9.6 9.3 Phosphorus Level 5.5 H 4.4 Magnesium Level 2.0 2.1 Total Bilirubin 0.5 0.5 Direct Bilirubin 0.00 0.00 Indirect Bilirubin 0.5 0.5 Aspartate Amino Transf (AST/SGOT) 33 40 Alanine Aminotransferase (ALT/SGPT) 16 17 Alkaline Phosphatase 157 H 169 H Total Protein 7.5 # 7.8 Albumin 3.9 4.0 Globulin 3.60 H 3.80 H Albumin/Globulin Ratio 1.08 1.05 Triglycerides Level 186 H 199 H Cholesterol Level 237 H LDL Cholesterol, Calculated 145 HDL Cholesterol 55 Cholesterol/HDL Ratio 4.3 Prealbumin 22.7 Bedside Glucose 95 Medications Medication Current Medications Sodium Chloride 1,000 ml @ 75 mls/hr [id number] IV Last administered on 03/28/19at 18:42; Admin Dose 75 MLS/HR; Start 03/27/19 at 11:30 IV Flush (NS 3 ml) 3 ml PER PROTOCOL IV ; Start 03/27/19 at 13:00 Ondansetron HCl (Zofran Inj) 4 mg Q6H PRN IV NAUSEA/VOMITING Last administered on 03/27/19at 23:50; Admin Dose 4 MG; Start 03/27/19 at 13:00 Famotidine (Pepcid Iv) 20 mg DAILY IV Last administered on 03/28/19at 09:21; Admin Dose 20 MG; Start 03/27/19 at 13:00 Hydralazine HCl (Apresoline) 10 mg Q6H PRN IV sbp>160; Start 03/27/19 at 13:00 Hydromorphone HCl (Dilaudid) 1 mg Q4H PRN IV SEVERE PAIN LEVEL 7-10 Last administered on 03/28/19at 10:48; Admin Dose 1 MG; Start 03/27/19 at 14:00 Diagnostic Test (Pha) (Accu-Chek) 1 ea Q4 XX ; Start 03/28/19 at 21:00 PHILIPP CHANG MD Mar 28, 2019 22:28
[2019-03-28] MEDS ORDERED: ACETAMINOPHEN 1000MG/100ML IV 100 ML IVPB PRN (23:30)
--- NOTE | 2019-03-28 23:39 | CONS ---
DATE OF ADMISSION: 03/27/2019 DATE OF CONSULTATION: TYPE OF CONSULTATION: Gastroenterology. Dear Dr. Russo and Dr. Tadeo: Thank you for asking me to see a stalk in GI consultation. HISTORY OF PRESENT ILLNESS: The patient, as you know, is a 64-year-old Chinese female, who is admitt ed to the hospital because of abdominal pain and vomiting. No bowel movement for the past several da ys. She is known to have a history of ovarian carcinoma and she has had chemotherapy given by Dr. Alexx gr, and apparently she has been having continuous treatment with chemotherapy. Please refer to note from Dr. Tadeo and also from Dr. Monroy. The patient had ovarian cancer in 2013. She had a mandel rgery done at that time. She was given chemotherapy by Dr. Tadeo. The debulking surgery was don e in 2015 in [facility]. Since then, the patient has been having recurrence. S he has been on Doxil and also Avastin. Last dose was given 1 week ago. The CAT scan shows carcinoma tosis, including metastasis in the liver. Serum CA-125 level is more than 400. SOCIAL HISTORY: Unremarkable. PHYSICAL EXAMINATION: GENERAL: The patient is a 64-year-old Chinese female who at this time is alert and she is well built . VITAL SIGNS: She is afebrile. CARDIOVASCULAR EXAM: Normal heart sounds. RESPIRATORY EXAM: Normal breath sounds. ABDOMEN: Showed evidence of a soft abdomen. There is evidence of a NG tube in place. LABORATORY WORKUP: The hemoglobin is 9.1, WBC count is 9200. Potassium 3.5, alkaline phosphatase is 157. The AST is 33, ALT is 13, alkaline phosphatase 174/157. Serum CA-125 is 400. DIAGNOSTIC DATA: The CAT scan of the abdomen shows evidence of colonic obstruction, transition at th e mid to descending colon level, presumably on a neoplastic etiology due to metastasis. Primary carc inoma of the colon is not considered by the findings. She has got lung nodules noted, indicating met astases. The KUB done today shows no radiographic evidence of small-bowel obstruction. Distention o f the air-fluid levels in the colon compatible with ongoing obstruction noted. CLINICAL IMPRESSION: The patient has evidence of large bowel obstruction, probably some air in the d escending colon and carcinomatosis is the main consideration at this time. PLAN: The colonic stent placement has been requested by the [facility] surgeon and will discuss with Dr. Alexx gr and the family doctor. Family was apprised of this plan and they agreed. Recommend Fleets enema. Once again, doctors, thank you for this consultation. Dictated By: JOS BROOKS MD NC/NTS Conf#: [id number] DID#: [id number] CC: PHILIPP TADEO MD; REID RUSSO MD; SURJIT MONROY MD;*EndCC*
[2019-03-29] MEDS: ACCU-CHEK XX SCH ×6 (01:00→21:00)
[2019-03-29 02:21] VITALS: BP 134/63; PULSE 72; RESP 18
[2019-03-29 08:01] VITALS: BP 141/67; PULSE 72; RESP 20
[2019-03-29] MEDS: FAMOTIDINE 20 MG INJ IV SCH (08:15)
[2019-03-29] MEDS ORDERED: TPN 1,000 ML IV SCH (12:09)
[2019-03-29] MEDS ORDERED: SOD CHLORIDE 0.45% 1,000 ML IV SCH (13:30)
[2019-03-29 14:30] VITALS: BP 136/63; PULSE 80; RESP 20
--- NOTE | 2019-03-29 15:05 | PN ---
Date/Time of Note Date/Time of Note DATE: 03/29/19 TIME: 15:04 Assessment/Plan VTE Prophylaxis Risk score (from Nsg)>0 risk: 4 SCD applied (from Nsg): Yes Pharmacological prophylaxis: heparin Lines/Catheters IV Catheter Type (from Nrsg): Saline Lock Urinary Cath still in place: No Assessment/Plan Hospital Course 64 yo female with metastatic ovarian cancer for years with good response to chemotherapy presents with n/v, found to have likely large bowel obstruction - Dr Gutierrez to perform colonoscopy and possible stent placement tomorrow - Appreciate Dr Francisco consultation - IV fluids for now - Pain control Anemia: - Chronic disease CKD III: - Stable, monitor creatinine Result Diagram: 03/28/19 0539 03/29/19 0552 Results 24hrs Laboratory Tests Test 03/28/19 17:40 03/28/19 21:46 03/29/19 05:51 03/29/19 05:52 Sodium Level 141 146 H Potassium Level 3.7 3.4 L Chloride Level 105 105 Carbon Dioxide Level 27 30 Anion Gap 9 # 11 Blood Urea Nitrogen 40 H 37 H Creatinine 1.43 H 1.46 H Est Glomerular 37 L 36 L Filtrat Rate mL/min Glucose Level 98 85 Calcium Level 9.3 9.4 Phosphorus Level 4.4 3.6 Magnesium Level 2.1 2.1 Total Bilirubin 0.5 Direct Bilirubin 0.00 Indirect Bilirubin 0.5 Aspartate Amino 40 Transf (AST/SGOT) Alanine 17 Aminotransferase (AL T/SGPT) Alkaline Phosphatase 169 H Total Protein 7.8 Albumin 4.0 Globulin 3.80 H Albumin/Globulin 1.05 Ratio Prealbumin 22.7 Triglycerides Level 199 H Bedside Glucose 95 85 Subjective 24 Hr Interval Summary Free Text/Dictation Passed stool Feeling fine Exam/Review of Systems Exam Vitals Vital Signs Date Temp Pulse Resp B/P (MAP) Pulse Ox O2 O2 Flow FiO2 Time Delivery Rate 03/29/19 98.6 80 20 136/63 93 14:30 (87) 03/27/19 Room Air 10:07 03/27/19 2.0 08:31 Intake and Output 03/28/19 03/28/19 03/29/19 1515:00 23:00 07:00 IntakeIntake Total 850 ml 750 ml OutputOutput Total 300 ml BalanceBalance 550 ml 750 ml Results Results 24hrs Laboratory Tests Test 03/28/19 17:40 03/28/19 21:46 03/29/19 05:51 03/29/19 05:52 Sodium Level 141 146 H Potassium Level 3.7 3.4 L Chloride Level 105 105 Carbon Dioxide Level 27 30 Anion Gap 9 # 11 Blood Urea Nitrogen 40 H 37 H Creatinine 1.43 H 1.46 H Est Glomerular 37 L 36 L Filtrat Rate mL/min Glucose Level 98 85 Calcium Level 9.3 9.4 Phosphorus Level 4.4 3.6 Magnesium Level 2.1 2.1 Total Bilirubin 0.5 Direct Bilirubin 0.00 Indirect Bilirubin 0.5 Aspartate Amino 40 Transf (AST/SGOT) Alanine 17 Aminotransferase (AL T/SGPT) Alkaline Phosphatase 169 H Total Protein 7.8 Albumin 4.0 Globulin 3.80 H Albumin/Globulin 1.05 Ratio Prealbumin 22.7 Triglycerides Level 199 H Bedside Glucose 95 85 Medications Medication Current Medications IV Flush (NS 3 ml) 3 ml PER PROTOCOL IV ; Start 03/27/19 at 13:00 Ondansetron HCl (Zofran Inj) 4 mg Q6H PRN IV NAUSEA/VOMITING Last administered on 03/27/19at 23:50; Admin Dose 4 MG; Start 03/27/19 at 13:00 Famotidine (Pepcid Iv) 20 mg DAILY IV Last administered on 03/29/19at 08:15; Admin Dose 20 MG; Start 03/27/19 at 13:00 Hydralazine HCl (Apresoline) 10 mg Q6H PRN IV sbp>160; Start 03/27/19 at 13:00 Hydromorphone HCl (Dilaudid) 1 mg Q4H PRN IV SEVERE PAIN LEVEL 7-10 Last administered on 03/28/19at 23:06; Admin Dose 1 MG; Start 03/27/19 at 14:00 Diagnostic Test (Pha) (Accu-Chek) 1 ea Q4 XX ; Start 03/28/19 at 21:00 Acetaminophen 100 ml @ 400 mls/hr Q8H PRN IVPB FOR PAIN Last administered on 03/29/19at 11:02; Admin Dose 400 MLS/HR; Start 03/28/19 at 23:30; Stop 03/29/19 at 23:29 Sodium Chloride 1,000 ml @ 75 mls/hr [id number] IV Last administered on 03/29/19at 13:35; Admin Dose 75 MLS/HR; Start 03/29/19 at 13:30 Total Parenteral Nutrition 1,000 ml @ 0 mls/hr Q0M IV ; Start 03/29/19 at 14:19; Status ADRIAN PABLO MD Mar 29, 2019 15:05
[2019-03-29] MEDS: TPN 1,000 ML IV SCH (18:57)
[2019-03-29] MEDS ORDERED: NA PHOSPHATE/BIPHOS 133 ML ENEMA PR ONE (19:30)
[2019-03-29 19:55] VITALS: BP 193/88; PULSE 70; RESP 18
[2019-03-29] MEDS: hydrALAzine 20 MG INJ IV PRN (20:24)
--- NOTE | 2019-03-29 22:26 | CONS ---
Assessment/Plan Assessment/Plan Hospital Course (Demo Recall) IMPRESSION: 1. Recurrent ovarian carcinoma, peritoneal carcinomatosis disease, status post surgery 5 years ago followed by chemotherapy pt was diagnosed in 2013. SHE presented with metastatic BL pleural effusions , post thoracentesis in 2013, cytology was c/w metastatic ovarian cancer PT HAD debulking surgery by Dr. Rafael De Paz at [facility]. Since then she has been treated with chemotherapy with CARBO /TAXOL She also had a secondary tumor debulking in 2016 at [facility]. I has been treating her recurrences, and now she is on her third regimen, currently on Doxil and Avastin, last dose is 1 week ago. 2. Possible colonic obstruction according to CT scan of abdomen and pelvis without contrast, C/W SBO NG TUBE, IVF, PAIN CONTROL, NPO GYNEONC F-UP NOTE THAT PT IS POST AVASTIN AND WITH HIGH RISK FOR PERFORATION POST SURGERY GI F-UP FOR colonoscopy with a colonic stent. 3. ABD PAIN 2 TO # 2 4. Recent chemotherapy with Doxil/Avastin. 5. ARF IVF MONITOR RENAL FUNCTION 6. chronic anemia, 7. renal calculi, hypertension, 8. DMII 9. HX Constipation 10. Hypertension 11. Leukocytosis, reactive Obtain blood cultures. No fevers. Will keep off antibiotics 12. Chronic anemia monitor Consultation Date/Type/Reason Admit Date/Time Mar 27, 2019 at 08:15 Initial Consult Date 03/27/19 Type of Consult [facility] Requesting Provider: DAVID QUIROZ Date/Time of Note DATE: 03/29/19 TIME: 22:23 24 HR Interval Summary Free Text/Dictation all noted Dr Gutierrez to perform colonoscopy and possible stent placement tomorrow ON IVF AND PAIN CONTROL Exam/Review of Systems Exam Vitals Vital Signs Date Temp Pulse Resp B/P (MAP) Pulse Ox O2 O2 Flow FiO2 Time Delivery Rate 03/29/19 98.4 70 18 193/88 97 19:55 (123) 03/27/19 Room Air 10:07 03/27/19 2.0 08:31 Intake and Output 03/28/19 03/28/19 03/29/19 1515:00 23:00 07:00 IntakeIntake Total 850 ml 750 ml OutputOutput Total 300 ml BalanceBalance 550 ml 750 ml Exam Constitutional: Adequately built,not in acute distress. HEENT: Head atraumatic and normocephalic. Eyes: Extraocular muscles intact. Anicteric sclerae. Pupils equal bilaterally, reactive to light. NECK: Supple without lymph node. CHEST: Clear and good breath sounds equally. No wheezing. No rhonchi. HEART: S1, S2. Regular rate and rhythm. ABDOMEN: Tenderness to all 4 quadrants. Abdomen soft. Hypoactive bowel sounds EXTREMITIES: No cyanosis, clubbing or edema. NEUROLOGIC: Alert and oriented x3. No focal deficit. No sensory deficit. PSYCHOSOCIAL: No signs of depression. INTEGUMENTARY: No open wounds. Results Result Diagram: 03/28/19 0539 03/29/19 0552 Results 24hrs Laboratory Tests Test 03/29/19 05:51 03/29/19 05:52 03/29/19 20:31 Bedside Glucose 85 96 Sodium Level 146 H Potassium Level 3.4 L Chloride Level 105 Carbon Dioxide Level 30 Anion Gap 11 Blood Urea Nitrogen 37 H Creatinine 1.46 H Est Glomerular Filtrat Rate mL/min 36 L Glucose Level 85 Calcium Level 9.4 Phosphorus Level 3.6 Magnesium Level 2.1 Medications Medication Current Medications IV Flush (NS 3 ml) 3 ml PER PROTOCOL IV ; Start 03/27/19 at 13:00 Ondansetron HCl (Zofran Inj) 4 mg Q6H PRN IV NAUSEA/VOMITING Last administered on 03/27/19at 23:50; Admin Dose 4 MG; Start 03/27/19 at 13:00 Famotidine (Pepcid Iv) 20 mg DAILY IV Last administered on 03/29/19at 08:15; Admin Dose 20 MG; Start 03/27/19 at 13:00 Hydralazine HCl (Apresoline) 10 mg Q6H PRN IV sbp>160 Last administered on 03/29/19at 20:24; Admin Dose 10 MG; Start 03/27/19 at 13:00 Hydromorphone HCl (Dilaudid) 1 mg Q4H PRN IV SEVERE PAIN LEVEL 7-10 Last administered on 03/28/19at 23:06; Admin Dose 1 MG; Start 03/27/19 at 14:00 Diagnostic Test (Pha) (Accu-Chek) 1 ea Q4 XX ; Start 03/28/19 at 21:00 Acetaminophen 100 ml @ 400 mls/hr Q8H PRN IVPB FOR PAIN Last administered on 03/29/19at 11:02; Admin Dose 400 MLS/HR; Start 03/28/19 at 23:30; Stop 03/29/19 at 23:29 Total Parenteral Nutrition 1,000 ml @ 60 mls/hr [id number] IV Last administered on 03/29/19at 18:57; Admin Dose 60 MLS/HR; Start 03/29/19 at 18:00 PHILIPP CHANG MD Mar 29, 2019 22:26
[2019-03-29 23:12] VITALS: BP 167/77; PULSE 81
[2019-03-29] MEDS: HYDROmorphONE 1 MG/ML SYG IV PRN (23:13)
[2019-03-30] MEDS: ACCU-CHEK XX SCH ×6 (01:00→21:00)
[2019-03-30 02:00] VITALS: BP 126/66; PULSE 78; RESP 18
--- NOTE | 2019-03-30 07:15 | PN ---
DATE: 03/29/2019 SUBJECTIVE: The patient states that she pulled out the NG tube. She had a good bowel movement today . She is also started on clear liquids. PHYSICAL EXAMINATION: VITAL SIGNS: Temperature 98.6, blood pressure 136/63. CARDIOVASCULAR: Normal heart sounds. RESPIRATORY: Normal breath sounds. ABDOMEN: Softer than yesterday. LABORATORY WORKUP: Hemoglobin is 9.1, WBC is 9200, platelets 342,000. Potassium 3.4. Alkaline phosphatase is 169. CLINICAL IMPRESSION: The patient is presenting with history of abdominal pain and vomiting and CAT s can showed large bowel obstruction in the area of the descending colon. She has ovarian cancer operated and treated with chemotherapy several times in the past. At this silvana e, I suspect that she probably has carcinomatosis and she has got sigmoid stricture resulting in cam l obstruction. The colonic stent placement has been requested by gynecological oncologist; however, I would like to recommend to obtain a Gastrografin enema to study the possible site of obstruction and see length of the stricture, so that we can obtain appropriate size of the stent. I discussed with Dr. Francisco who agr eed for me to do the Gastrografin enema and discussed with the family. Dictated By: JOS BROOKS MD NC/NTS Conf#: [id number] DID#: [id number] CC: PHILIPP CHANG MD; ADRIAN FRANCO MD; REID COLBERT MD;*End*
[2019-03-30 07:59] VITALS: BP 193/86; PULSE 75; RESP 20
[2019-03-30] MEDS: hydrALAzine 20 MG INJ IV PRN (08:22)
[2019-03-30] MEDS: FAMOTIDINE 20 MG INJ IV SCH (08:22)
[2019-03-30] MEDS ORDERED: IOHEXOL 300MG/ML 150 ML BTL ONE (09:45)
[2019-03-30] MEDS: POTASSIUM CHLORIDE 100 ML IVPB SCH ×3 (11:00→21:52)
[2019-03-30 14:03] VITALS: BP 174/80; PULSE 77; RESP 18
--- NOTE | 2019-03-30 16:17 | PN ---
Date/Time of Note Date/Time of Note DATE: 03/30/19 TIME: 16:16 Assessment/Plan VTE Prophylaxis Risk score (from Nsg)>0 risk: 5 SCD applied (from Nsg): Yes Pharmacological prophylaxis: heparin Lines/Catheters IV Catheter Type (from Nrsg): Peripheral IV Urinary Cath still in place: No Assessment/Plan Hospital Course 64 yo female with metastatic ovarian cancer for years with good response to chemotherapy presents with n/v, found to have likely large bowel obstruction - Imaging 03/30 shows obstructive apple core lesion in the colon, perhaps a new diagnosis of primary colon cancer? Consideration of colonoscopy with possible stent per Dr Gutierrez - Appreciate Dr Francisco consultation - IV fluids for now - Pain control Ovarian cancer: - management per Dr sam Anemia: - Chronic disease CKD III: - Stable, monitor creatinine Result Diagram: 03/28/19 0539 03/30/19 0511 Results 24hrs Laboratory Tests Test 03/29/19 20:31 03/30/19 01:28 03/30/19 05:11 03/30/19 05:20 Bedside Glucose 96 104 116 Sodium Level 144 Potassium Level 2.9 *L Chloride Level 104 Carbon Dioxide Level 31 Anion Gap 9 Blood Urea Nitrogen 35 H Creatinine 1.26 H Est Glomerular 43 L Filtrat Rate mL/min Glucose Level 111 Calcium Level 9.2 Phosphorus Level 2.9 Magnesium Level 2.0 Test 03/30/19 08:05 03/30/19 12:26 Bedside Glucose 116 115 Subjective 24 Hr Interval Summary Free Text/Dictation Imaging shows obstructive apple core lesion in the colon Exam/Review of Systems Exam Vitals Vital Signs Date Temp Pulse Resp B/P (MAP) Pulse Ox O2 O2 Flow FiO2 Time Delivery Rate 03/30/19 98.7 77 18 174/80 98 14:03 (111) 03/27/19 Room Air 10:07 03/27/19 2.0 08:31 Intake and Output 03/29/19 03/29/19 03/30/19 1515:00 23:00 07:00 IntakeIntake Total 250 ml 300 ml 600 ml BalanceBalance 250 ml 300 ml 600 ml Results Results 24hrs Laboratory Tests Test 03/29/19 20:31 03/30/19 01:28 03/30/19 05:11 03/30/19 05:20 Bedside Glucose 96 104 116 Sodium Level 144 Potassium Level 2.9 *L Chloride Level 104 Carbon Dioxide Level 31 Anion Gap 9 Blood Urea Nitrogen 35 H Creatinine 1.26 H Est Glomerular 43 L Filtrat Rate mL/min Glucose Level 111 Calcium Level 9.2 Phosphorus Level 2.9 Magnesium Level 2.0 Test 03/30/19 08:05 03/30/19 12:26 Bedside Glucose 116 115 Medications Medication Current Medications IV Flush (NS 3 ml) 3 ml PER PROTOCOL IV ; Start 03/27/19 at 13:00 Ondansetron HCl (Zofran Inj) 4 mg Q6H PRN IV NAUSEA/VOMITING Last administered on 03/27/19 23:50; Admin Dose 4 MG; Start 03/27/19 at 13:00 Famotidine (Pepcid Iv) 20 mg DAILY IV Last administered on 03/30/19 08:22; Admin Dose 20 MG; Start 03/27/19 at 13:00 Hydralazine HCl (Apresoline) 10 mg Q6H PRN IV sbp>160 Last administered on 03/30/19 08:22; Admin Dose 10 MG; Start 03/27/19 at 13:00 Hydromorphone HCl (Dilaudid) 1 mg Q4H PRN IV SEVERE PAIN LEVEL 7-10 Last administered on 03/29/19 23:13; Admin Dose 1 MG; Start 03/27/19 at 14:00 Diagnostic Test (Pha) (Accu-Chek) 1 ea Q4 XX ; Start 03/28/19 at 21:00 Total Parenteral Nutrition 1,000 ml @ 60 mls/hr [id number] IV Last administered on 03/29/19 18:57; Admin Dose 60 MLS/HR; Start 03/29/19 at 18:00 Lidocaine (Xylocaine 1% (Mpf)) 5 ml ONCE ONCE SC ; Start 03/30/19 at 16:30; Stop 03/30/19 at 16:31 ADRIAN FRANCO MD Mar 30, 2019 16:17
[2019-03-30] MEDS ORDERED: LIDOCAINE 1% (MPF) 5 ML VIAL SC ONE (16:30)
--- NOTE | 2019-03-30 17:57 | PREAC ---
Date/Time of Note Date/Time of Note DATE: 03/30/19 TIME: 17:56 Anesthesia Eval and Record Evaluation Time Pre-Procedure Interview DATE: 03/30/19 TIME: 17:56 Age 64 Sex female NPO: 8 hrs Preoperative diagnosis large bowel obstruction Planned procedure COLONOSCOPY W/ STENT PLACEMENT Past Medical History Past Medical History: Includes Cardio: HTN Endo: Diabetes Renal: NAGA GI: GERD, Morbid obesity Heme: Anemia Surgery & Anesthesia Issues No known issue Meds Anticoagulation: No Beta Trae within 24 hr: No Reason Beta Trae not given: Pt. not on B-Trae Active Scripts Carvedilol* (Carvedilol*) 6.25 Mg Tablet, 6.25 MG PO BID for 60 Days, #120 TAB Prov:ADRIAN FRANCO MD 03/03/19 Reported Medications Esomeprazole Mag Trihydrate (Nexium) 40 Mg Capsule.dr, 40 MG PO DAILY, #30 CAP 03/27/19 Olmesartan Medoxomil (Olmesartan Medoxomil) 40 Mg Tablet, 1 TAB ORAL DAILY 03/27/19 Cholecalciferol* (Vitamin D3*) 1,000 Unit Tablet, 1000 UNIT PO DAILY, TAB 03/02/19 Pantoprazole* (Protonix*) 40 Mg Tablet.dr, 40 MG PO DAILY, TAB 03/02/19 Metformin Hcl* (Metformin Hcl*) 500 Mg Tablet, 500 MG PO WITH BREAKFAST, #30 TAB 03/02/19 Clonidine Hcl* (Clonidine Hcl*) 0.1 Mg Tab, 0.1 MG PO DAILY PRN for BLOOD PRESSURE SUPPORT, TAB 03/02/19 Hydrochlorothiazide* (Hydrochlorothiazide*) 25 Mg Tab, 25 MG PO DAILY, #30 TAB 03/02/19 Discontinued Scripts Tamsulosin Hcl* (Flomax*) 0.4 Mg Cap.er.24h, 0.4 MG PO DAILY for 30 Days, #30 CAP Prov:ADRIAN FRANCO MD 03/03/19 Current Medications IV Flush (NS 3 ml) 3 ml PER PROTOCOL IV ; Start 03/27/19 at 13:00 Ondansetron HCl (Zofran Inj) 4 mg Q6H PRN IV NAUSEA/VOMITING Last administered on 03/27/19at 23:50; Admin Dose 4 MG; Start 03/27/19 at 13:00 Famotidine (Pepcid Iv) 20 mg DAILY IV Last administered on 03/30/19 08:22; Admin Dose 20 MG; Start 03/27/19 at 13:00 Hydralazine HCl (Apresoline) 10 mg Q6H PRN IV sbp>160 Last administered on 03/30/19at 08:22; Admin Dose 10 MG; Start 03/27/19 at 13:00 Hydromorphone HCl (Dilaudid) 1 mg Q4H PRN IV SEVERE PAIN LEVEL 7-10 Last administered on 03/29/19at 23:13; Admin Dose 1 MG; Start 03/27/19 at 14:00 Diagnostic Test (Pha) (Accu-Chek) 1 ea Q4 XX ; Start 03/28/19 at 21:00 Total Parenteral Nutrition 1,000 ml @ 60 mls/hr [id number] IV Last administered on 03/29/19at 18:57; Admin Dose 60 MLS/HR; Start 03/29/19 at 18:00 Meds reviewed: Yes Allergies Coded Allergies: No Known Allergies (Verified Allergy, Unknown, 03/27/19) Allergies Reviewed: Yes Labs/Studies Labs Reviewed: Reviewed by anesthesiologist Result Diagram: 03/28/19 0539 03/30/19 0511 Laboratory Tests 03/30/19 05:11 test: N/A Pre-procedure Exam Last vitals Vital Signs Date Temp Pulse Resp B/P (MAP) Pulse Ox O2 O2 Flow FiO2 Time Delivery Rate 03/30/19 98.7 77 18 174/80 98 14:03 (111) 03/27/19 Room Air 10:07 03/27/19 2.0 08:31 Airway: Adequate thyromental dist Mallampati: Mallampati II Teeth: Normal Lung: Normal Heart: Normal ASA Physical Status ASA physical status: 3 Emergency: None Pre-operative Attestations Prior to commencing anesthesia and surgery, the patient was re-evaluated, there was verification of: *The patient's identity *The results of appropriate recent lab work and preoperative vital signs *The above evaluation not changing prior to induction *Anesthetic plan, risk benefits, alternative and complications discussed with patient/family; questions answered; patient/family understands, accepts and wishes to proceed. JOHN CRANE Mar 30, 2019 17:57
[2019-03-30 19:56] VITALS: BP 173/79; PULSE 83; RESP 18
--- NOTE | 2019-03-30 20:23 | CONS ---
DATE OF ADMISSION: 03/27/2019 DATE OF CONSULTATION: SUBJECTIVE: The patient at this time has been documented, admitted with bowel obstruction. No vomit ing at this time. She has small bowel movement. OBJECTIVE: ABDOMEN: Mildly distended and soft. VITAL SIGNS: Blood pressure is 174/80, temperature 98.7. LABORATORY WORKUP: WBC is 9200, hemoglobin 9.1, potassium 2.9. CLINICAL IMPRESSION: The patient has got a colonic obstruction. The Gastrografin enema showed evide nce of bowel obstruction. PLAN: The metal stent placement has been planned and discussed with the family and they agree. Adva ntages, disadvantages, complications including perforation, all have been explained to the patient. They agree and we will proceed with a colonoscopy and metal stent placement. Dictated By: JOS CASTREJON/NTS Conf#: [id number] DID#: [id number] CC: REID COLBERT MD;*EndCC*
[2019-03-30] MEDS: TPN 1,000 ML IV SCH ×2 (21:16→23:59)
[2019-03-30] MEDS: HYDROmorphONE 1 MG/ML SYG IV PRN (21:21)
--- NOTE | 2019-03-30 23:05 | CONS ---
Assessment/Plan Assessment/Plan Hospital Course (Demo Recall) IMPRESSION: 1. Recurrent ovarian carcinoma, peritoneal carcinomatosis disease, status post surgery 5 years ago followed by chemotherapy pt was diagnosed in 2013. SHE presented with metastatic BL pleural effusions , post thoracentesis in 2013, cytology was c/w metastatic ovarian cancer PT HAD debulking surgery by Dr. Rafael De Paz at [facility]. Since then she has been treated with chemotherapy with CARBO /TAXOL She also had a secondary tumor debulking in 2016 at [facility] [place]. I has been treating her recurrences, and now she is on her third regimen, currently on Doxil and Avastin, last dose is 1 week ago. 2. Possible colonic obstruction according to CT scan of abdomen and pelvis without contrast, C/W SBO NG TUBE, IVF, PAIN CONTROL, NPO GYNEONC F-UP NOTE THAT PT IS POST AVASTIN AND WITH HIGH RISK FOR PERFORATION POST SURGERY GI F-UP- colonoscopy with a colonic stent, PER GI- The metal stent placement has been planned They agree and we will proceed with a colonoscopy and metal stent placement. 3. ABD PAIN 2 TO # 2 4. Recent chemotherapy with Doxil/Avastin. 5. ARF IVF MONITOR RENAL FUNCTION 6. chronic anemia, 7. renal calculi, hypertension, 8. DMII 9. HX Constipation 10. Hypertension 11. Leukocytosis, reactive Obtain blood cultures. No fevers. Will keep off antibiotics 12. Chronic anemia monitor Consultation Date/Type/Reason Admit Date/Time Mar 27, 2019 at 08:15 Initial Consult Date 03/27/19 Type of Consult [facility] Requesting Provider: DAVID QUIROZ Date/Time of Note DATE: 03/30/19 TIME: 23:03 24 HR Interval Summary Free Text/Dictation + SMALL BM Exam/Review of Systems Exam Vitals Vital Signs Date Temp Pulse Resp B/P (MAP) Pulse Ox O2 O2 Flow FiO2 Time Delivery Rate 03/30/19 98.0 83 18 173/79 94 19:56 (110) 03/27/19 Room Air 10:07 03/27/19 2.0 08:31 Intake and Output 03/29/19 03/29/19 03/30/19 1515:00 23:00 07:00 IntakeIntake Total 250 ml 300 ml 600 ml BalanceBalance 250 ml 300 ml 600 ml Exam Constitutional: Adequately built,not in acute distress. HEENT: Head atraumatic and normocephalic. Eyes: Extraocular muscles intact. Anicteric sclerae. Pupils equal bilaterally, reactive to light. NECK: Supple without lymph node. CHEST: Clear and good breath sounds equally. No wheezing. No rhonchi. HEART: S1, S2. Regular rate and rhythm. ABDOMEN: Tenderness to all 4 quadrants. Abdomen soft. Hypoactive bowel sounds EXTREMITIES: No cyanosis, clubbing or edema. NEUROLOGIC: Alert and oriented x3. No focal deficit. No sensory deficit. PSYCHOSOCIAL: No signs of depression. INTEGUMENTARY: No open wounds. Results Result Diagram: 03/28/19 0539 03/30/19 0511 Results 24hrs Laboratory Tests Test 03/30/19 01:28 03/30/19 05:11 03/30/19 05:20 03/30/19 08:05 Bedside Glucose 104 116 116 Sodium Level 144 Potassium Level 2.9 *L Chloride Level 104 Carbon Dioxide Level 31 Anion Gap 9 Blood Urea Nitrogen 35 H Creatinine 1.26 H Est Glomerular 43 L Filtrat Rate mL/min Glucose Level 111 Calcium Level 9.2 Phosphorus Level 2.9 Magnesium Level 2.0 Test 03/30/19 12:26 03/30/19 17:40 03/30/19 21:11 Bedside Glucose 115 101 88 Medications Medication Current Medications IV Flush (NS 3 ml) 3 ml PER PROTOCOL IV ; Start 03/27/19 at 13:00 Ondansetron HCl (Zofran Inj) 4 mg Q6H PRN IV NAUSEA/VOMITING Last administered on 03/27/19at 23:50; Admin Dose 4 MG; Start 03/27/19 at 13:00 Famotidine (Pepcid Iv) 20 mg DAILY IV Last administered on 03/30/19at 08:22; Admin Dose 20 MG; Start 03/27/19 at 13:00 Hydralazine HCl (Apresoline) 10 mg Q6H PRN IV sbp>160 Last administered on 03/30/19at 08:22; Admin Dose 10 MG; Start 03/27/19 at 13:00 Hydromorphone HCl (Dilaudid) 1 mg Q4H PRN IV SEVERE PAIN LEVEL 7-10 Last administered on 03/30/19at 21:21; Admin Dose 1 MG; Start 03/27/19 at 14:00 Diagnostic Test (Pha) (Accu-Chek) 1 ea Q4 XX ; Start 03/28/19 at 21:00 Total Parenteral Nutrition 1,000 ml @ 60 mls/hr [id number] IV Last administered on 03/29/19at 18:57; Admin Dose 60 MLS/HR; Start 03/29/19 at 18:00 PHILIPP CHANG MD Mar 30, 2019 23:05
[2019-03-31] VITALS (11 sets, daily range): BP systolic 40–199; BP diastolic 55–88; PULSE 70–89; RESP 18–22
[2019-03-31] MEDS: ACCU-CHEK XX SCH ×6 (01:00→20:38)
[2019-03-31] MEDS: TPN 1,000 ML IV SCH (03:20)
[2019-03-31] MEDS: hydrALAzine 20 MG INJ IV PRN (08:26)
[2019-03-31] MEDS: FAMOTIDINE 20 MG INJ IV SCH (08:26)
[2019-03-31] MEDS ORDERED: IOHEXOL 300MG/ML 30 ML BTL ONE (15:28)
[2019-03-31] MEDS ORDERED: METOCLOPRAMIDE 10 MG INJ ONE (15:45)
[2019-03-31] MEDS ORDERED: MIDAZOLAM 1 MG/ML 2 ML INJ ONE (15:45)
[2019-03-31] MEDS ORDERED: FENTAnyl 50 MCG/ML VIAL ONE (16:01)
[2019-03-31] MEDS ORDERED: ONDANSETRON 4 MG INJ ONE (16:01)
[2019-03-31] MEDS ORDERED: METOPROLOL 5 MG INJ ONE (16:06)
[2019-03-31] MEDS ORDERED: hydrALAzine 20 MG INJ ONE (16:44)
--- NOTE | 2019-03-31 16:50 | OPR ---
Date/Time of Note Date/Time of Note DATE: 03/31/19 TIME: 16:47 Operative Report Preoperative Diagnosis distal descending colon obstruction Postoperative Diagnosis same poor prep Operation/Procedure Performed colonoscopy Surgeon see signature line Flange Machine Operator none Anesthesia Type: MAC Anesthesiologist: MALENA HERRON MD Estimated Blood Loss: none Transfusion none Specimen none Grafts/Implants none Complications none Pt Condition Post Procedure: stable Disposition: PACU Indications distal descending colon obstruction Procedure Description colonoscopy JOS BROOKS MD Mar 31, 2019 16:50
--- NOTE | 2019-03-31 16:55 | CONS ---
Consultation Date/Type/Reason Admit Date/Time Mar 27, 2019 at 08:15 Initial Consult Date 03/27/19 Requesting Provider: DAVID QUIROZ Date/Time of Note DATE: 03/31/19 TIME: 16:55 Exam/Review of Systems Exam Vitals Vital Signs Date Temp Pulse Resp B/P (MAP) Pulse Ox O2 O2 Flow FiO2 Time Delivery Rate 03/31/19 98.3 89 18 138/65 97 Nasal 2.0 09:25 (89) Cannula Intake and Output 03/30/19 03/30/19 03/31/19 1515:00 23:00 07:00 IntakeIntake Total 100 ml 453 ml BalanceBalance 100 ml 453 ml Results Result Diagram: 03/31/19 0437 03/31/19 0437 Results 24hrs Laboratory Tests Test 03/30/19 17:40 03/30/19 21:11 03/31/19 00:28 03/31/19 01:22 Bedside Glucose 101 88 102 Potassium Level 3.7 Test 03/31/19 04:37 03/31/19 05:49 03/31/19 09:23 03/31/19 13:21 White Blood Count 8.6 Red Blood Count 3.20 L Hemoglobin 9.2 L Hematocrit 30.9 L Mean Corpuscular 96.6 Volume Mean Corpuscular 28.8 L Hemoglobin Mean Corpuscular 29.8 L Hemoglobin Concent Red Cell 20.1 H Distribution Width Platelet Count 346 Mean Platelet Volume 10.1 Immature 0.500 H Granulocytes % Neutrophils % 69.6 Lymphocytes % 18.4 Monocytes % 8.8 Eosinophils % 2.0 Basophils % 0.7 Nucleated Red Blood 0.0 Cells % Immature 0.040 H Granulocytes # Neutrophils # 6.0 Lymphocytes # 1.6 Monocytes # 0.8 Eosinophils # 0.2 Basophils # 0.1 Nucleated Red Blood 0.0 Cells # Sodium Level 144 Potassium Level 3.5 Chloride Level 105 Carbon Dioxide Level 29 Anion Gap 10 Blood Urea Nitrogen 33 H Creatinine 1.17 H Est Glomerular 47 L Filtrat Rate mL/min Glucose Level 105 Calcium Level 9.6 Bedside Glucose 106 112 138 Test 03/31/19 16:03 Bedside Glucose 98 Medications Medication Current Medications IV Flush (NS 3 ml) 3 ml PER PROTOCOL IV Last administered on 03/31/19at 08:32; Admin Dose 3 ML; Start 03/27/19 at 13:00 Ondansetron HCl (Zofran Inj) 4 mg Q6H PRN IV NAUSEA/VOMITING Last administered on 03/27/19 23:50; Admin Dose 4 MG; Start 03/27/19 at 13:00 Famotidine (Pepcid Iv) 20 mg DAILY IV Last administered on 03/31/19 08:26; Admin Dose 20 MG; Start 03/27/19 at 13:00 Hydralazine HCl (Apresoline) 10 mg Q6H PRN IV sbp>160 Last administered on 03/31/19 08:26; Admin Dose 10 MG; Start 03/27/19 at 13:00 Hydromorphone HCl (Dilaudid) 1 mg Q4H PRN IV SEVERE PAIN LEVEL 7-10 Last administered on 03/30/19 21:21; Admin Dose 1 MG; Start 03/27/19 at 14:00 Diagnostic Test (Pha) (Accu-Chek) 1 ea Q4 XX Last administered on 03/31/19 13:57; Admin Dose 1 EA; Start 03/28/19 at 21:00 Total Parenteral Nutrition 1,000 ml @ 60 mls/hr [id number] IV Last administered on 03/30/19 23:59; Admin Dose 60 MLS/HR; Start 03/29/19 at 18:00 JOS BROOKS MD Mar 31, 2019 16:55
--- NOTE | 2019-03-31 17:04 | HPN ---
Date/Time of Note Date/Time of Note DATE: 03/31/19 TIME: 17:04 Interval H&P Admission Note Pt. seen H&P reviewed: No system changes JOS BROOKS MD Mar 31, 2019 17:04
--- NOTE | 2019-03-31 17:45 | PN ---
Date/Time of Note Date/Time of Note DATE: 03/31/19 TIME: 17:45 Assessment/Plan VTE Prophylaxis Risk score (from Nsg)>0 risk: 3 SCD applied (from Nsg): Yes Pharmacological prophylaxis: heparin Lines/Catheters IV Catheter Type (from Nrsg): Saline Lock Urinary Cath still in place: No Assessment/Plan Hospital Course 64 yo female with metastatic ovarian cancer for years with good response to chemotherapy presents with n/v, found to have likely large bowel obstruction - Imaging 03/30 shows obstructive apple core lesion in the colon, perhaps a new diagnosis of primary colon cancer? Colonoscopy with possible stent per Dr Gutierrez - Appreciate Dr Francisco consultation - PPN initiated - Pain control Ovarian cancer: - management per Dr sam Anemia: - Chronic disease CKD III: - Stable, monitor creatinine Result Diagram: 03/31/1943603/31/197 Results 24hrs Laboratory Tests Test 03/30/19 21:11 03/31/19 00:28 03/31/19 01:22 03/31/19 04:37 Bedside Glucose 88 102 Potassium Level 3.7 3.5 White Blood Count 8.6 Red Blood Count 3.20 L Hemoglobin 9.2 L Hematocrit 30.9 L Mean Corpuscular 96.6 Volume Mean Corpuscular 28.8 L Hemoglobin Mean Corpuscular 29.8 L Hemoglobin Concent Red Cell 20.1 H Distribution Width Platelet Count 346 Mean Platelet Volume 10.1 Immature 0.500 H Granulocytes % Neutrophils % 69.6 Lymphocytes % 18.4 Monocytes % 8.8 Eosinophils % 2.0 Basophils % 0.7 Nucleated Red Blood 0.0 Cells % Immature 0.040 H Granulocytes # Neutrophils # 6.0 Lymphocytes # 1.6 Monocytes # 0.8 Eosinophils # 0.2 Basophils # 0.1 Nucleated Red Blood 0.0 Cells # Sodium Level 144 Chloride Level 105 Carbon Dioxide Level 29 Anion Gap 10 Blood Urea Nitrogen 33 H Creatinine 1.17 H Est Glomerular 47 L Filtrat Rate mL/min Glucose Level 105 Calcium Level 9.6 Test 03/31/19 05:49 03/31/19 09:23 03/31/19 13:21 03/31/19 16:03 Bedside Glucose 106 112 138 98 Subjective 24 Hr Interval Summary Free Text/Dictation Started on PPN Went to GI suite for colonoscopy this afternoon Exam/Review of Systems Exam Vitals Vital Signs Date Temp Pulse Resp B/P (MAP) Pulse Ox O2 O2 Flow FiO2 Time Delivery Rate 03/31/19 74 22 122/58 99 Room Air 17:13 (79) 03/31/19 98.3 16:55 03/31/19 2.0 09:25 Intake and Output 03/30/19 03/30/19 03/31/19 1515:00 23:00 07:00 IntakeIntake Total 100 ml 453 ml BalanceBalance 100 ml 453 ml Results Results 24hrs Laboratory Tests Test 03/30/19 21:11 03/31/19 00:28 03/31/19 01:22 03/31/19 04:37 Bedside Glucose 88 102 Potassium Level 3.7 3.5 White Blood Count 8.6 Red Blood Count 3.20 L Hemoglobin 9.2 L Hematocrit 30.9 L Mean Corpuscular 96.6 Volume Mean Corpuscular 28.8 L Hemoglobin Mean Corpuscular 29.8 L Hemoglobin Concent Red Cell 20.1 H Distribution Width Platelet Count 346 Mean Platelet Volume 10.1 Immature 0.500 H Granulocytes % Neutrophils % 69.6 Lymphocytes % 18.4 Monocytes % 8.8 Eosinophils % 2.0 Basophils % 0.7 Nucleated Red Blood 0.0 Cells % Immature 0.040 H Granulocytes # Neutrophils # 6.0 Lymphocytes # 1.6 Monocytes # 0.8 Eosinophils # 0.2 Basophils # 0.1 Nucleated Red Blood 0.0 Cells # Sodium Level 144 Chloride Level 105 Carbon Dioxide Level 29 Anion Gap 10 Blood Urea Nitrogen 33 H Creatinine 1.17 H Est Glomerular 47 L Filtrat Rate mL/min Glucose Level 105 Calcium Level 9.6 Test 03/31/19 05:49 03/31/19 09:23 03/31/19 13:21 03/31/19 16:03 Bedside Glucose 106 112 138 98 Medications Medication Current Medications IV Flush (NS 3 ml) 3 ml PER PROTOCOL IV Last administered on 03/31/19at 08:32; Admin Dose 3 ML; Start 03/27/19 at 13:00 Ondansetron HCl (Zofran Inj) 4 mg Q6H PRN IV NAUSEA/VOMITING Last administered on 03/27/19at 23:50; Admin Dose 4 MG; Start 03/27/19 at 13:00 Famotidine (Pepcid Iv) 20 mg DAILY IV Last administered on 03/31/19 08:26; Admin Dose 20 MG; Start 03/27/19 at 13:00 Hydralazine HCl (Apresoline) 10 mg Q6H PRN IV sbp>160 Last administered on 03/31/19 08:26; Admin Dose 10 MG; Start 03/27/19 at 13:00 Hydromorphone HCl (Dilaudid) 1 mg Q4H PRN IV SEVERE PAIN LEVEL 7-10 Last administered on 03/30/19 21:21; Admin Dose 1 MG; Start 03/27/19 at 14:00 Diagnostic Test (Pha) (Accu-Chek) 1 ea Q4 XX Last administered on 03/31/19 13:57; Admin Dose 1 EA; Start 03/28/19 at 21:00 Total Parenteral Nutrition 1,000 ml @ 60 mls/hr [id number] IV Last administered on 03/30/19 23:59; Admin Dose 60 MLS/HR; Start 03/29/19 at 18:00 Lactulose (Enulose) 30 gm Q3 GTB ; Start 03/31/19 at 20:00; Status ADRIAN PABLO MD Mar 31, 2019 17:45
--- NOTE | 2019-03-31 20:09 | GILP ---
DATE OF PROCEDURE: PROCEDURE: Colonoscopy. PREOPERATIVE DIAGNOSIS: The patient is presenting with history of abdominal pain and abdominal diste ntion. CAT scan of the abdomen shows evidence of obstruction at the distal descending colon. The pa tient probably has a carcinomatosis due to ovarian cancer. Procedure at this time is performed to in sert a stent through the stricture and then in colon endoscopically. POSTOPERATIVE DIAGNOSES: 1. Suboptimal preparation. 2. No colonic stricture noted at the distal descending colon. There is evidence of multiple levels of extrinsic obstruction noted. DESCRIPTION OF PROCEDURE: After the informed written consent was obtained, the patient was put on le ft lateral position. Intravenous anesthesia was given by anesthesiologist, Dr. Anton. When the patient became somnolent, Olympus video colonoscope was inserted into the rectum and advanced up to sigmoid colon. There is evidence of large amount of stool noted. The lumen could not be identified. The scope was withdrawn. Upper endoscope was inserted into the rectum. Scope was advanced all the way to the mid and descending colon. There seems to be evidence of extrinsic compression at several levels, but no luminal obstruction or luminal tumor noted; however, scope could not be advanced beyo nd a certain point because of the large amount of stool. Scope at this time was withdrawn and the pr ocedure was terminated. PLAN: I recommend to re-prepare the patient and reattempt a colonoscopy hopefully with a better prep aration. Dictated By: JOS BROOKS MD NC/NTS Conf#: [id number] DID#: [id number] CC: SURJIT MONROY MD; REID COLBERT MD; PHILIPP CHANG MD; ADRIAN FRANCO MD;*EndCC*
[2019-03-31] MEDS: LACTULOSE 30ML CUP GTB SCH ×2 (20:33→23:37)
--- NOTE | 2019-03-31 23:29 | CONS ---
Assessment/Plan Assessment/Plan Hospital Course (Demo Recall) IMPRESSION: 1. Recurrent ovarian carcinoma, peritoneal carcinomatosis disease, status post surgery 5 years ago followed by chemotherapy pt was diagnosed in 2013. SHE presented with metastatic BL pleural effusions , post thoracentesis in 2013, cytology was c/w metastatic ovarian cancer PT HAD debulking surgery by Dr. Rafael De Paz at [facility]. Since then she has been treated with chemotherapy with CARBO /TAXOL She also had a secondary tumor debulking in 2016 at [facility]. I has been treating her recurrences, and now she is on her third regimen, currently on Doxil and Avastin, last dose is 1 week ago. 2. Possible colonic obstruction according to CT scan of abdomen and pelvis without contrast, C/W SBO NG TUBE, IVF, PAIN CONTROL, NPO GYNEONC F-UP NOTE THAT PT IS POST AVASTIN AND WITH HIGH RISK FOR PERFORATION POST SURGERY GI F-UP- colonoscopy with a colonic stent, PER GI- The metal stent placement has been planned post colonoscopy, no metal stent placed plan - better prep 3. ABD PAIN 2 TO # 2 4. Recent chemotherapy with Doxil/Avastin. 5. ARF IVF MONITOR RENAL FUNCTION 6. chronic anemia, 7. renal calculi, hypertension, 8. DMII 9. HX Constipation 10. Hypertension 11. Leukocytosis, reactive Obtain blood cultures. No fevers. Will keep off antibiotics 12. Chronic anemia monitor Consultation Date/Type/Reason Admit Date/Time Mar 27, 2019 at 08:15 Initial Consult Date 03/27/19 Type of Consult [facility] Requesting Provider: DAVID QUIROZ Date/Time of Note DATE: 03/31/19 TIME: 23:28 24 HR Interval Summary Free Text/Dictation all noted No colonic stricture noted at the distal descending colon. There is evidence of multiple levels of extrinsic obstruction noted. Exam/Review of Systems Exam Vitals Vital Signs Date Temp Pulse Resp B/P (MAP) Pulse Ox O2 O2 Flow FiO2 Time Delivery Rate 03/31/19 97.9 85 20 129/88 97 20:17 (102) 03/31/19 Room Air 17:13 03/31/19 2.0 17:00 Intake and Output 03/30/19 03/30/19 03/31/19 1515:00 23:00 07:00 IntakeIntake Total 100 ml 453 ml BalanceBalance 100 ml 453 ml Exam Constitutional: Adequately built,not in acute distress. HEENT: Head atraumatic and normocephalic. Eyes: Extraocular muscles intact. Anicteric sclerae. Pupils equal bilaterally, reactive to light. NECK: Supple without lymph node. CHEST: Clear and good breath sounds equally. No wheezing. No rhonchi. HEART: S1, S2. Regular rate and rhythm. ABDOMEN: Tenderness to all 4 quadrants. Abdomen soft. Hypoactive bowel sounds EXTREMITIES: No cyanosis, clubbing or edema. NEUROLOGIC: Alert and oriented x3. No focal deficit. No sensory deficit. PSYCHOSOCIAL: No signs of depression. INTEGUMENTARY: No open wounds. Results Result Diagram: 03/31/19 0437 03/31/19 0437 Results 24hrs Laboratory Tests Test 03/31/19 00:28 03/31/19 01:22 03/31/19 04:37 03/31/19 05:49 Potassium Level 3.7 3.5 Bedside Glucose 102 106 White Blood Count 8.6 Red Blood Count 3.20 L Hemoglobin 9.2 L Hematocrit 30.9 L Mean Corpuscular 96.6 Volume Mean Corpuscular 28.8 L Hemoglobin Mean Corpuscular 29.8 L Hemoglobin Concent Red Cell 20.1 H Distribution Width Platelet Count 346 Mean Platelet Volume 10.1 Immature 0.500 H Granulocytes % Neutrophils % 69.6 Lymphocytes % 18.4 Monocytes % 8.8 Eosinophils % 2.0 Basophils % 0.7 Nucleated Red Blood 0.0 Cells % Immature 0.040 H Granulocytes # Neutrophils # 6.0 Lymphocytes # 1.6 Monocytes # 0.8 Eosinophils # 0.2 Basophils # 0.1 Nucleated Red Blood 0.0 Cells # Sodium Level 144 Chloride Level 105 Carbon Dioxide Level 29 Anion Gap 10 Blood Urea Nitrogen 33 H Creatinine 1.17 H Est Glomerular 47 L Filtrat Rate mL/min Glucose Level 105 Calcium Level 9.6 Test 03/31/19 09:23 03/31/19 13:21 03/31/19 16:03 03/31/19 17:46 Bedside Glucose 112 138 98 104 Test 03/31/19 20:37 Bedside Glucose 89 Medications Medication Current Medications IV Flush (NS 3 ml) 3 ml PER PROTOCOL IV Last administered on 03/31/19at 08:32; Admin Dose 3 ML; Start 03/27/19 at 13:00 Ondansetron HCl (Zofran Inj) 4 mg Q6H PRN IV NAUSEA/VOMITING Last administered on 03/27/19 23:50; Admin Dose 4 MG; Start 03/27/19 at 13:00 Famotidine (Pepcid Iv) 20 mg DAILY IV Last administered on 03/31/19 08:26; Admin Dose 20 MG; Start 03/27/19 at 13:00 Hydralazine HCl (Apresoline) 10 mg Q6H PRN IV sbp>160 Last administered on 03/31 08:26; Admin Dose 10 MG; Start 03/27/19 at 13:00 Hydromorphone HCl (Dilaudid) 1 mg Q4H PRN IV SEVERE PAIN LEVEL 7-10 Last administered on 03/30/19 21:21; Admin Dose 1 MG; Start 03/27/19 at 14:00 Diagnostic Test (Pha) (Accu-Chek) 1 ea Q4 XX Last administered on 03/31/19 20:38; Admin Dose 1 EA; Start 03/28/19 at 21:00 Lactulose (Enulose) 30 gm Q3 GTB Last administered on 03/31/19 20:33; Admin Dose 30 GM; Start 03/31/19 at 20:00 Dextrose 1,000 ml @ 100 mls/hr Q10H IV ; Start 03/31/19 at 18:30 PHILIPP CHANG MD Mar 31, 2019 23:29
[2019-04-01] MEDS: ACCU-CHEK XX SCH ×6 (00:56→21:00)
[2019-04-01] MEDS: HYDROmorphONE 1 MG/ML SYG IV PRN (00:59)
[2019-04-01 02:12] VITALS: BP 124/66; PULSE 96; RESP 19
[2019-04-01] MEDS: LACTULOSE 30ML CUP GTB SCH ×8 (03:42→21:08)
[2019-04-01] MEDS: DEXTROSE 10% 1,000 ML IV SCH ×3 (04:30→16:28)
[2019-04-01 08:19] VITALS: BP 143/78; PULSE 98; RESP 18
--- NOTE | 2019-04-01 08:44 | PAC ---
Date/Time of Note Date/Time of Note DATE: 04/01/19 TIME: 08:44 Post-Anesthesia Notes Post-Anesthesia Note Last documented vital signs Vital Signs Date Temp Pulse Resp B/P (MAP) Pulse Ox O2 O2 Flow FiO2 Time Delivery Rate 04/01/19 98.8 98 18 143/78 92 Room Air 08:19 (99) 03/31/19 2.0 17:00 Activity: WNL Respiratory function: WNL Cardiovascular function: WNL Mental status: Baseline Pain reasonably controlled: Yes Hydration appropriate: Yes Nausea/Vomiting absent: No MALENA HERRON MD Apr 01, 2019 08:44
[2019-04-01] MEDS: FAMOTIDINE 20 MG INJ IV SCH (09:29)
--- NOTE | 2019-04-01 14:39 | PN ---
Date/Time of Note Date/Time of Note DATE: 04/01/19 TIME: 14:37 Assessment/Plan VTE Prophylaxis Risk score (from Nsg)>0 risk: 3 SCD applied (from Nsg): Yes Pharmacological prophylaxis: heparin Lines/Catheters IV Catheter Type (from Nrsg): Saline Lock Urinary Cath still in place: No Assessment/Plan Hospital Course 64 yo female with metastatic ovarian cancer for years with good response to chemotherapy presents with n/v, found to have likely large bowel obstruction - Imaging 03/30 shows obstructive apple core lesion in the colon, perhaps a new diagnosis of primary colon cancer? Colonoscopy with possible stent per Dr Gutierrez complicated by poor prep. Needs to be repeated - Needs IV access via central line as PIV, PICC, and midline impossible. I have asked Tamiko Craven, and MARISOL. Awaiting plan - Appreciate Dr Francisco consultation - PPN on hold given no IV - Pain control Ovarian cancer: - management per Dr sam Anemia: - Chronic disease CKD III: - Stable, monitor creatinine Result Diagram: 03/31/1943603/31/19436 Results 24hrs Laboratory Tests Test 03/31/19 16:03 03/31/19 17:46 03/31/19 20:37 04/01/19 00:56 Bedside Glucose 98 104 89 113 Test 04/01/19 09:42 04/01/19 13:46 Bedside Glucose 126 124 Subjective 24 Hr Interval Summary Free Text/Dictation Colonoscopy with poor prep, needs to be repeated Was ordered for NG decompression but she refused this We have lost IV access, PICC and midline not possible per IV team. I have reached out to Tamiko Craven and MARISOL Exam/Review of Systems Exam Vitals Vital Signs Date Temp Pulse Resp B/P (MAP) Pulse Ox O2 O2 Flow FiO2 Time Delivery Rate 04/01/19 Nasal 2.0 08:30 Cannula 04/01/19 98.8 98 18 143/78 92 08:19 (99) Intake and Output 03/31/19 03/31/19 04/01/19 1515:00 23:00 07:00 IntakeIntake Total 527 ml BalanceBalance 527 ml Results Results 24hrs Laboratory Tests Test 03/31/19 16:03 03/31/19 17:46 03/31/19 20:37 04/01/19 00:56 Bedside Glucose 98 104 89 113 Test 04/01/19 09:42 04/01/19 13:46 Bedside Glucose 126 124 Medications Medication Current Medications IV Flush (NS 3 ml) 3 ml PER PROTOCOL IV Last administered on 03/31/19 08:32; Admin Dose 3 ML; Start 03/27/19 at 13:00 Ondansetron HCl (Zofran Inj) 4 mg Q6H PRN IV NAUSEA/VOMITING Last administered on 03/27/19 23:50; Admin Dose 4 MG; Start 03/27/19 at 13:00 Famotidine (Pepcid Iv) 20 mg DAILY IV Last administered on 04/01/19 09:29; Admin Dose 20 MG; Start 03/27/19 at 13:00 Hydralazine HCl (Apresoline) 10 mg Q6H PRN IV sbp>160 Last administered on 03/31/19 08:26; Admin Dose 10 MG; Start 03/27/19 at 13:00 Hydromorphone HCl (Dilaudid) 1 mg Q4H PRN IV SEVERE PAIN LEVEL 7-10 Last administered on 04/01/19 00:59; Admin Dose 1 MG; Start 03/27/19 at 14:00 Diagnostic Test (Pha) (Accu-Chek) 1 ea Q4 XX Last administered on 04/01/19 05:00; Admin Dose 1 EA; Start 03/28/19 at 21:00 Lactulose (Enulose) 30 gm Q3 GTB Last administered on 04/01/19 09:29; Admin Dose 30 GM; Start 03/31/19 at 20:00 Dextrose 1,000 ml @ 100 mls/hr Q10H IV ; Start 03/31/19 at 18:30 ADRIAN FRANCO MD Apr 01, 2019 14:39
[2019-04-01 15:08] VITALS: BP 138/75; PULSE 94; RESP 18
[2019-04-01 19:55] VITALS: BP 141/76; PULSE 97; RESP 17
[2019-04-01] MEDS ORDERED: ACETAMINOPHEN 650MG/20.3ML CUP NGT PRN (23:00)
--- NOTE | 2019-04-01 23:30 | CONS ---
Assessment/Plan Assessment/Plan Hospital Course (Demo Recall) IMPRESSION: 1. Recurrent ovarian carcinoma, peritoneal carcinomatosis disease, status post surgery 5 years ago followed by chemotherapy pt was diagnosed in 2013. SHE presented with metastatic BL pleural effusions , post thoracentesis in 2013, cytology was c/w metastatic ovarian cancer PT HAD debulking surgery by Dr. Rafael De Paz at [facility]. Since then she has been treated with chemotherapy with CARBO /TAXOL She also had a secondary tumor debulking in 2016 at [facility]. I has been treating her recurrences, and now she is on her third regimen, currently on Doxil and Avastin, last dose is 1 week ago. 2. Possible colonic obstruction according to CT scan of abdomen and pelvis without contrast, C/W SBO NG TUBE, IVF, PAIN CONTROL, NPO GYNEONC F-UP NOTE THAT PT IS POST AVASTIN AND WITH HIGH RISK FOR PERFORATION POST SURGERY GI F-UP- colonoscopy with a colonic stent, PER GI- The metal stent placement has been planned post colonoscopy, no metal stent placed plan - better prep 3. ABD PAIN 2 TO # 2 4. Recent chemotherapy with Doxil/Avastin. 5. ARF IVF MONITOR RENAL FUNCTION 6. chronic anemia, 7. renal calculi, hypertension, 8. DMII 9. HX Constipation 10. Hypertension 11. Leukocytosis, reactive Obtain blood cultures. No fevers. Will keep off antibiotics 12. Chronic anemia monitor Consultation Date/Type/Reason Admit Date/Time Mar 27, 2019 at 08:15 Initial Consult Date 03/27/19 Type of Consult [facility] Requesting Provider: DAVID QUIROZ Date/Time of Note DATE: 04/01/19 TIME: 23:30 Exam/Review of Systems Exam Vitals Vital Signs Date Temp Pulse Resp B/P (MAP) Pulse Ox O2 O2 Flow FiO2 Time Delivery Rate 04/01/19 97.4 97 17 141/76 97 19:55 (97) 04/01/19 Room Air 15:08 04/01/19 2.0 08:30 Intake and Output 03/31/19 03/31/19 04/01/19 1515:00 23:00 07:00 IntakeIntake Total 527 ml BalanceBalance 527 ml Exam Constitutional: Adequately built,not in acute distress. HEENT: Head atraumatic and normocephalic. Eyes: Extraocular muscles intact. Anicteric sclerae. Pupils equal bilaterally, reactive to light. NECK: Supple without lymph node. CHEST: Clear and good breath sounds equally. No wheezing. No rhonchi. HEART: S1, S2. Regular rate and rhythm. ABDOMEN: Tenderness to all 4 quadrants. Abdomen soft. Hypoactive bowel sounds EXTREMITIES: No cyanosis, clubbing or edema. NEUROLOGIC: Alert and oriented x3. No focal deficit. No sensory deficit. PSYCHOSOCIAL: No signs of depression. INTEGUMENTARY: No open wounds. Results Result Diagram: 03/31/197 03/31/19436 Results 24hrs Laboratory Tests Test 04/01/19 00:56 04/01/19 09:42 04/01/19 13:46 04/01/19 18:19 Bedside Glucose 113 126 124 154 Test 04/01/19 21:07 Bedside Glucose 131 Medications Medication Current Medications IV Flush (NS 3 ml) 3 ml PER PROTOCOL IV Last administered on 03/31/19 08:32; Admin Dose 3 ML; Start 03/27/19 at 13:00 Ondansetron HCl (Zofran Inj) 4 mg Q6H PRN IV NAUSEA/VOMITING Last administered on 03/27/19 23:50; Admin Dose 4 MG; Start 03/27/19 at 13:00 Famotidine (Pepcid Iv) 20 mg DAILY IV Last administered on 04/01/19 09:29; Admin Dose 20 MG; Start 03/27/19 at 13:00 Hydralazine HCl (Apresoline) 10 mg Q6H PRN IV sbp>160 Last administered on 03/31/19 08:26; Admin Dose 10 MG; Start 03/27/19 at 13:00 Hydromorphone HCl (Dilaudid) 1 mg Q4H PRN IV SEVERE PAIN LEVEL 7-10 Last administered on 04/01/19 00:59; Admin Dose 1 MG; Start 03/27/19 at 14:00 Diagnostic Test (Pha) (Accu-Chek) 1 ea Q4 XX Last administered on 04/01/19 17:00; Admin Dose 1 EA; Start 03/28/19 at 21:00 Lactulose (Enulose) 30 gm Q3 GTB Last administered on 04/01/19 21:08; Admin Dose 30 GM; Start 03/31/19 at 20:00 Dextrose 1,000 ml @ 100 mls/hr Q10H IV Last administered on 04/01/19at 16:28; Admin Dose 100 MLS/HR; Start 03/31/19 at 18:30 Acetaminophen (Tylenol Liquid) 650 mg Q6H PRN NGT MILD PAIN(1-3)OR ELEVATED TEMP Last administered on 04/01/19at 23:21; Admin Dose 650 MG; Start 04/01/19 at 23:00 PHILIPP CHANG MD Apr 01, 2019 23:30
--- NOTE | 2019-04-02 00:16 | PN ---
DATE: 04/01/2019 The patient has distal descending obstruction; however, at this time, the patient is not a surgical c andidate. Endoscopic metal stent placement has been requested. Attempt was made yesterday, but debbie use of very poor preparation. The procedure could not be accomplished. PHYSICAL EXAMINATION: The patient is alert. She has got a nasogastric tube in now because she could not tolerate the p.o. lactulose, and at this time nasogastric tube was put in to give the lactulose as well as to do the suction. Abdomen is soft and minimal distention noted. She was given tap water enemas which resulted in some amount of stools coming back. Still it looks like she may have a larg e amount of stool. CLINICAL IMPRESSION: Distal colonic obstruction in the descending colon. Patient is not a surgical candidate. PLAN: At this time we will prepare the patient further so that they can hopefully place a colonoscop ic stent into the obstructed area. Dictated By: JOS CASTREJON/DANAE Conf#: [id number] DID#: [id number]
[2019-04-02] MEDS: DEXTROSE 10% 1,000 ML IV SCH ×2 (00:30→03:18)
[2019-04-02] MEDS: ACCU-CHEK XX SCH ×6 (01:00→21:00)
[2019-04-02] MEDS: ONDANSETRON 4 MG INJ IV PRN ×2 (01:50→08:48)
[2019-04-02 02:16] VITALS: BP 146/75; PULSE 96; RESP 18
[2019-04-02] MEDS: LACTULOSE 30ML CUP GTB SCH ×3 (03:18→06:43)
[2019-04-02] MEDS ORDERED: POTASSIUM CHLORIDE (SR) 20 MEQ TAB PO STA (06:56)
[2019-04-02] MEDS ORDERED: POTASSIUM CHLORIDE 20 MEQ POWDER FOR ORAL SOLN NGT ONE (07:00)
[2019-04-02 08:22] VITALS: BP 142/70; PULSE 89; RESP 20
[2019-04-02] MEDS ORDERED: PEG/ELECTROLYTES 4L BTL NGT ONE (08:30)
[2019-04-02] MEDS: FAMOTIDINE 20 MG INJ IV SCH (08:51)
[2019-04-02] MEDS ORDERED: DEXTROSE 5%-0.45% NACL 1,000 ML IV SCH (09:00)
[2019-04-02] MEDS: D5W-0.45 NACL + KCL 20 MEQ 1,000 ML IV SCH ×2 (12:48→22:16)
[2019-04-02 15:20] VITALS: BP 146/78; PULSE 90; RESP 20
--- NOTE | 2019-04-02 15:31 | PN ---
Date/Time of Note Date/Time of Note DATE: 04/02/19 TIME: 15:01 Assessment/Plan VTE Prophylaxis Risk score (from Nsg)>0 risk: 5 SCD applied (from Nsg): Yes Pharmacological prophylaxis: heparin Lines/Catheters IV Catheter Type (from Nrsg): Peripheral IV Urinary Cath still in place: No Assessment/Plan Hospital Course 64 yo female with metastatic ovarian cancer for years with good response to chemotherapy presents with n/v, found to have likely large bowel obstruction - Imaging 03/30 shows obstructive apple core lesion in the colon, perhaps a new diagnosis of primary colon cancer? Colonoscopy with possible stent per Dr Gutierrez complicated by poor prep. Needs to be repeated. Trying to accomplish prep via NG tube - Needs IV access via central line as PIV, PICC, and midline impossible. I have asked Tamiko Craven, and IR. Awaiting plan - Appreciate Dr Francisco consultation - PPN on hold given no IV - Pain control Ovarian cancer: - management per Dr sam Anemia: - Chronic disease CKD III: - Stable, monitor creatinine Result Diagram: 04/02/199 04/02/19 0459 Results 24hrs Laboratory Tests Test 04/01/19 18:19 04/01/19 21:07 04/02/19 01:26 04/02/19 04:59 Bedside Glucose 154 131 158 White Blood Count 13.9 #H Red Blood Count 3.44 L Hemoglobin 9.9 L Hematocrit 32.9 L Mean Corpuscular 95.6 Volume Mean Corpuscular 28.8 L Hemoglobin Mean Corpuscular 30.1 L Hemoglobin Concent Red Cell 20.6 H Distribution Width Platelet Count 378 Mean Platelet Volume 10.2 Immature 0.400 Granulocytes % Neutrophils % 83.8 H Lymphocytes % 7.7 L Monocytes % 7.5 Eosinophils % 0.3 Basophils % 0.3 Nucleated Red Blood 0.0 Cells % Immature 0.060 H Granulocytes # Neutrophils # 11.6 H Lymphocytes # 1.1 Monocytes # 1.0 H Eosinophils # 0.0 Basophils # 0.0 Nucleated Red Blood 0.0 Cells # Sodium Level 144 Potassium Level 2.9 *L Chloride Level 106 Carbon Dioxide Level 27 Anion Gap 11 Blood Urea Nitrogen 43 H Creatinine 2.27 H Est Glomerular 22 L Filtrat Rate mL/min Glucose Level 155 Calcium Level 9.7 Total Bilirubin 0.5 Direct Bilirubin 0.00 Indirect Bilirubin 0.5 Aspartate Amino 32 Transf (AST/SGOT) Alanine 15 Aminotransferase (AL T/SGPT) Alkaline Phosphatase 166 H Total Protein 8.1 Albumin 3.9 Globulin 4.20 H Albumin/Globulin 0.92 Ratio Test 04/02/19 05:00 04/02/19 05:48 04/02/19 09:29 04/02/19 12:53 Magnesium Level 2.0 Bedside Glucose 160 142 146 Subjective 24 Hr Interval Summary Free Text/Dictation No IV access Intermittent nausea Difficulty completing prep Exam/Review of Systems Exam Vitals Vital Signs Date Temp Pulse Resp B/P (MAP) Pulse Ox O2 O2 Flow FiO2 Time Delivery Rate 04/02/19 98.7 89 20 142/70 99 08:22 (94) 04/01/19 Nasal 2.0 20:00 Cannula Intake and Output 04/01/19 04/01/19 04/02/19 1515:00 23:00 07:00 IntakeIntake Total 120 ml 50 ml 1150 ml OutputOutput Total 450 ml 20 ml BalanceBalance -330 ml 30 ml 1150 ml Results Results 24hrs Laboratory Tests Test 04/01/19 18:19 04/01/19 21:07 04/02/19 01:26 04/02/19 04:59 Bedside Glucose 154 131 158 White Blood Count 13.9 #H Red Blood Count 3.44 L Hemoglobin 9.9 L Hematocrit 32.9 L Mean Corpuscular 95.6 Volume Mean Corpuscular 28.8 L Hemoglobin Mean Corpuscular 30.1 L Hemoglobin Concent Red Cell 20.6 H Distribution Width Platelet Count 378 Mean Platelet Volume 10.2 Immature 0.400 Granulocytes % Neutrophils % 83.8 H Lymphocytes % 7.7 L Monocytes % 7.5 Eosinophils % 0.3 Basophils % 0.3 Nucleated Red Blood 0.0 Cells % Immature 0.060 H Granulocytes # Neutrophils # 11.6 H Lymphocytes # 1.1 Monocytes # 1.0 H Eosinophils # 0.0 Basophils # 0.0 Nucleated Red Blood 0.0 Cells # Sodium Level 144 Potassium Level 2.9 *L Chloride Level 106 Carbon Dioxide Level 27 Anion Gap 11 Blood Urea Nitrogen 43 H Creatinine 2.27 H Est Glomerular 22 L Filtrat Rate mL/min Glucose Level 155 Calcium Level 9.7 Total Bilirubin 0.5 Direct Bilirubin 0.00 Indirect Bilirubin 0.5 Aspartate Amino 32 Transf (AST/SGOT) Alanine 15 Aminotransferase (AL T/SGPT) Alkaline Phosphatase 166 H Total Protein 8.1 Albumin 3.9 Globulin 4.20 H Albumin/Globulin 0.92 Ratio Test 04/02/19 05:00 04/02/19 05:48 04/02/19 09:29 04/02/19 12:53 Magnesium Level 2.0 Bedside Glucose 160 142 146 Medications Medication Current Medications IV Flush (NS 3 ml) 3 ml PER PROTOCOL IV Last administered on 03/31/19 08:32; Admin Dose 3 ML; Start 03/27/19 at 13:00 Ondansetron HCl (Zofran Inj) 4 mg Q6H PRN IV NAUSEA/VOMITING Last administered on 04/02/19 08:48; Admin Dose 4 MG; Start 03/27/19 at 13:00 Famotidine (Pepcid Iv) 20 mg DAILY IV Last administered on 04/02/19 08:51; Admin Dose 20 MG; Start 03/27/19 at 13:00 Hydralazine HCl (Apresoline) 10 mg Q6H PRN IV sbp>160 Last administered on 03/31/19 08:26; Admin Dose 10 MG; Start 03/27/19 at 13:00 Hydromorphone HCl (Dilaudid) 1 mg Q4H PRN IV SEVERE PAIN LEVEL 7-10 Last administered on 04/01/19 00:59; Admin Dose 1 MG; Start 03/27/19 at 14:00 Diagnostic Test (Pha) (Accu-Chek) 1 ea Q4 XX Last administered on 04/02/19 12:48; Admin Dose 1 EA; Start 03/28/19 at 21:00 Acetaminophen (Tylenol Liquid) 650 mg Q6H PRN NGT MILD PAIN(1-3)OR ELEVATED TEMP Last administered on 04/01/19 23:21; Admin Dose 650 MG; Start 04/01/19 at 23:00 Potassium Chloride/Dextrose/ Sod Cl 1,000 ml @ 100 mls/hr Q10H IV Last administered on 04/02/19 12:48; Admin Dose 150 MLS/HR; Start 04/02/19 at 12:30 ADRIAN FRANCO MD Apr 02, 2019 15:11
--- NOTE | 2019-04-02 17:13 | RADRPT ---
Vent Rate: 78 bpm RR Interval: 764 msec AR Interval: 149 msec QRS Duration: 80 msec QT Interval: 418 msec QTC Interval: 478 msec P-R-T [place]: 56 - 36 - 33 degrees Sinus rhythm...normal P axis, V-rate 50- 99 Electronically Signed By: Yusuf Hill
[2019-04-02 20:03] VITALS: BP 140/68; PULSE 88; RESP 19
--- NOTE | 2019-04-02 21:10 | CONS ---
Assessment/Plan Assessment/Plan Hospital Course (Demo Recall) IMPRESSION: 1. Recurrent ovarian carcinoma, peritoneal carcinomatosis disease, status post surgery 5 years ago followed by chemotherapy pt was diagnosed in 2013. SHE presented with metastatic BL pleural effusions , post thoracentesis in 2013, cytology was c/w metastatic ovarian cancer PT HAD debulking surgery by Dr. Rafael De Paz at [facility]. Since then she has been treated with chemotherapy with CARBO /TAXOL She also had a secondary tumor debulking in 2016 at [facility]. I has been treating her recurrences, and now she is on her third regimen, currently on Doxil and Avastin, last dose is 1 week ago. 2. Possible colonic obstruction according to CT scan of abdomen and pelvis without contrast, C/W SBO NG TUBE, IVF, PAIN CONTROL, NPO GYNEONC F-UP NOTE THAT PT IS POST AVASTIN AND WITH HIGH RISK FOR PERFORATION POST SURGERY GI F-UP- colonoscopy with a colonic stent, PER GI- The metal stent placement has been planned post colonoscopy, no metal stent placed plan - better prep 3. ABD PAIN 2 TO # 2 4. Recent chemotherapy with Doxil/Avastin. 5. ARF IVF MONITOR RENAL FUNCTION 6. chronic anemia, 7. renal calculi, hypertension, 8. DMII 9. HX Constipation 10. Hypertension 11. Leukocytosis, reactive Obtain blood cultures. No fevers. Will keep off antibiotics 12. Chronic anemia monitor Consultation Date/Type/Reason Admit Date/Time Mar 27, 2019 at 08:15 Initial Consult Date 03/27/19 Type of Consult [facility] Requesting Provider: DAVID QUIROZ Date/Time of Note DATE: 04/02/19 TIME: 21:10 Exam/Review of Systems Exam Vitals Vital Signs Date Temp Pulse Resp B/P (MAP) Pulse Ox O2 O2 Flow FiO2 Time Delivery Rate 04/02/19 Nasal 2.0 21:06 Cannula 04/02/19 98.0 88 19 140/68 94 20:03 (92) Intake and Output 04/01/19 04/01/19 04/02/19 1515:00 23:00 07:00 IntakeIntake Total 120 ml 50 ml 1150 ml OutputOutput Total 450 ml 20 ml BalanceBalance -330 ml 30 ml 1150 ml Exam Constitutional: Adequately built,not in acute distress. HEENT: Head atraumatic and normocephalic. Eyes: Extraocular muscles intact. Anicteric sclerae. Pupils equal bilaterally, reactive to light. NECK: Supple without lymph node. CHEST: Clear and good breath sounds equally. No wheezing. No rhonchi. HEART: S1, S2. Regular rate and rhythm. ABDOMEN: Tenderness to all 4 quadrants. Abdomen soft. Hypoactive bowel sounds EXTREMITIES: No cyanosis, clubbing or edema. NEUROLOGIC: Alert and oriented x3. No focal deficit. No sensory deficit. PSYCHOSOCIAL: No signs of depression. INTEGUMENTARY: No open wounds. Results Result Diagram: 04/02/19 0459 04/02/19 0459 Results 24hrs Laboratory Tests Test 04/02/19 01:26 04/02/19 04:59 04/02/19 05:00 04/02/19 05:48 Bedside Glucose 158 160 White Blood Count 13.9 #H Red Blood Count 3.44 L Hemoglobin 9.9 L Hematocrit 32.9 L Mean Corpuscular 95.6 Volume Mean Corpuscular 28.8 L Hemoglobin Mean Corpuscular 30.1 L Hemoglobin Concent Red Cell 20.6 H Distribution Width Platelet Count 378 Mean Platelet Volume 10.2 Immature 0.400 Granulocytes % Neutrophils % 83.8 H Lymphocytes % 7.7 L Monocytes % 7.5 Eosinophils % 0.3 Basophils % 0.3 Nucleated Red Blood 0.0 Cells % Immature 0.060 H Granulocytes # Neutrophils # 11.6 H Lymphocytes # 1.1 Monocytes # 1.0 H Eosinophils # 0.0 Basophils # 0.0 Nucleated Red Blood 0.0 Cells # Sodium Level 144 Potassium Level 2.9 *L Chloride Level 106 Carbon Dioxide Level 27 Anion Gap 11 Blood Urea Nitrogen 43 H Creatinine 2.27 H Est Glomerular 22 L Filtrat Rate mL/min Glucose Level 155 Calcium Level 9.7 Total Bilirubin 0.5 Direct Bilirubin 0.00 Indirect Bilirubin 0.5 Aspartate Amino 32 Transf (AST/SGOT) Alanine 15 Aminotransferase (AL T/SGPT) Alkaline Phosphatase 166 H Total Protein 8.1 Albumin 3.9 Globulin 4.20 H Albumin/Globulin 0.92 Ratio Magnesium Level 2.0 Test 04/02/19 09:29 04/02/19 12:53 04/02/19 17:40 Bedside Glucose 142 146 105 Medications Medication Current Medications IV Flush (NS 3 ml) 3 ml PER PROTOCOL IV Last administered on 03/31/19 08:32; Admin Dose 3 ML; Start 03/27/19 at 13:00 Ondansetron HCl (Zofran Inj) 4 mg Q6H PRN IV NAUSEA/VOMITING Last administered on 04/02/19 08:48; Admin Dose 4 MG; Start 03/27/19 at 13:00 Famotidine (Pepcid Iv) 20 mg DAILY IV Last administered on 04/02/19 08:51; Admin Dose 20 MG; Start 03/27/19 at 13:00 Hydralazine HCl (Apresoline) 10 mg Q6H PRN IV sbp>160 Last administered on 03/31/19 08:26; Admin Dose 10 MG; Start 03/27/19 at 13:00 Hydromorphone HCl (Dilaudid) 1 mg Q4H PRN IV SEVERE PAIN LEVEL 7-10 Last administered on 04/01/19 00:59; Admin Dose 1 MG; Start 03/27/19 at 14:00 Diagnostic Test (Pha) (Accu-Chek) 1 ea Q4 XX Last administered on 04/02/19 17:37; Admin Dose 1 EA; Start 03/28/19 at 21:00 Acetaminophen (Tylenol Liquid) 650 mg Q6H PRN NGT MILD PAIN(1-3)OR ELEVATED TEMP Last administered on 04/01/19 23:21; Admin Dose 650 MG; Start 04/01/19 at 23:00 Potassium Chloride/Dextrose/ Sod Cl 1,000 ml @ 100 mls/hr Q10H IV Last administered on 04/02/19 12:48; Admin Dose 150 MLS/HR; Start 04/02/19 at 12:30 PHILIPP CHANG MD Apr 02, 2019 21:10
[2019-04-03] VITALS (16 sets, daily range): BP systolic 112–170; BP diastolic 57–81; PULSE 73–86; RESP 18–22
[2019-04-03] MEDS: ACCU-CHEK XX SCH ×6 (01:00→21:00)
--- NOTE | 2019-04-03 06:59 | PN ---
DATE: 04/02/2019 SUBJECTIVE: The patient at this time continues to have nasogastric suction and GoLYTELY being given through the nasogastric tube to clean the colon so that we can do a colonoscopy and see if there is a ny stool obstruction. If there is still obstruction, then we will put a colonic metal stent. OBJECTIVE: GENERAL: She is alert. VITAL SIGNS: She has afebrile temperature, 146/78. CARDIOVASCULAR: Normal heart sound. RESPIRATORY: Normal breath sounds. ABDOMEN: Soft. LABORATORY WORKUP: Potassium 2.9. PLAN: More IV potassium should be given and colonoscopy tomorrow. Dictated By: JOS BROOKS MD NC/NTS Conf#: [id number] DID#: [id number] CC: REID COLBERT MD;*End*
[2019-04-03] MEDS: D5W-0.45 NACL + KCL 20 MEQ 1,000 ML IV SCH ×2 (08:27→17:41)
[2019-04-03] MEDS: POTASSIUM CHLORIDE 50 ML IVPB SCH ×3 (09:57→12:27)
[2019-04-03] MEDS: FAMOTIDINE 20 MG INJ IV SCH (09:57)
--- NOTE | 2019-04-03 15:30 | PREAC ---
Date/Time of Note Date/Time of Note DATE: 04/03/19 TIME: 15:29 Anesthesia Eval and Record Evaluation Time Pre-Procedure Interview DATE: 04/03/19 TIME: 15:29 Age 64 Sex female NPO: 8 hrs Preoperative diagnosis partial bowel obstruction, metastatic ovarian cancer Planned procedure colonoscopy with stent (previous attempt to place metal stent unsuccessful as patient had poor bowel prep) Past Medical History Past Medical History: Includes (h/o metastatic ovarian carcinoma with peritoneal carcinomatosis disease) Cardio: HTN, Dyslipidemia Endo: Diabetes Renal: NAGA, CKD Surgery & Anesthesia Issues No known issue Meds Anticoagulation: No Beta Trae within 24 hr: No Reason Beta Trae not given: Bradycarida, Hypotension Active Scripts Carvedilol* (Carvedilol*) 6.25 Mg Tablet, 6.25 MG PO BID for 60 Days, #120 TAB Prov:ADRIAN FRANCO MD 03/03/19 Reported Medications Esomeprazole Mag Trihydrate (Nexium) 40 Mg Capsule.dr, 40 MG PO DAILY, #30 CAP 03/27/19 Olmesartan Medoxomil (Olmesartan Medoxomil) 40 Mg Tablet, 1 TAB ORAL DAILY 03/27/19 Cholecalciferol* (Vitamin D3*) 1,000 Unit Tablet, 1000 UNIT PO DAILY, TAB 03/02/19 Pantoprazole* (Protonix*) 40 Mg Tablet.dr, 40 MG PO DAILY, TAB 03/02/19 Metformin Hcl* (Metformin Hcl*) 500 Mg Tablet, 500 MG PO WITH BREAKFAST, #30 TAB 03/02/19 Clonidine Hcl* (Clonidine Hcl*) 0.1 Mg Tab, 0.1 MG PO DAILY PRN for BLOOD PRESSURE SUPPORT, TAB 03/02/19 Hydrochlorothiazide* (Hydrochlorothiazide*) 25 Mg Tab, 25 MG PO DAILY, #30 TAB 03/02/19 Discontinued Scripts Tamsulosin Hcl* (Flomax*) 0.4 Mg Cap.er.24h, 0.4 MG PO DAILY for 30 Days, #30 CAP Prov:ADRIAN FRANCO MD 03/03/19 Current Medications IV Flush (NS 3 ml) 3 ml PER PROTOCOL IV Last administered on 03/31/19at 08:32; Admin Dose 3 ML; Start 03/27/19 at 13:00 Ondansetron HCl (Zofran Inj) 4 mg Q6H PRN IV NAUSEA/VOMITING Last administered on 04/02/19 08:48; Admin Dose 4 MG; Start 03/27/19 at 13:00 Famotidine (Pepcid Iv) 20 mg DAILY IV Last administered on 04/03/19 09:57; Admin Dose 20 MG; Start 03/27/19 at 13:00 Hydralazine HCl (Apresoline) 10 mg Q6H PRN IV sbp>160 Last administered on 03/31/19 08:26; Admin Dose 10 MG; Start 03/27/19 at 13:00 Hydromorphone HCl (Dilaudid) 1 mg Q4H PRN IV SEVERE PAIN LEVEL 7-10 Last administered on 04/01/19 00:59; Admin Dose 1 MG; Start 03/27/19 at 14:00 Diagnostic Test (Pha) (Accu-Chek) 1 ea Q4 XX Last administered on 04/03/19 13:01; Admin Dose 1 EA; Start 03/28/19 at 21:00 Acetaminophen (Tylenol Liquid) 650 mg Q6H PRN NGT MILD PAIN(1-3)OR ELEVATED TEMP Last administered on 04/01/19 23:21; Admin Dose 650 MG; Start 04/01/19 at 23:00 Potassium Chloride/Dextrose/ Sod Cl 1,000 ml @ 100 mls/hr Q10H IV Last administered on 04/03/19 08:27; Admin Dose 100 MLS/HR; Start 04/02/19 at 12:30 Meds reviewed: Yes Allergies Coded Allergies: No Known Allergies (Verified Allergy, Unknown, 03/27/19) Allergies Reviewed: Yes Labs/Studies Labs Reviewed: Reviewed by anesthesiologist Result Diagram: 04/03/19 0550 04/03/19 0550 Laboratory Tests 04/03/19 05:50 test: N/A Pre-procedure Exam Last vitals Vital Signs Date Temp Pulse Resp B/P (MAP) Pulse Ox O2 O2 Flow FiO2 Time Delivery Rate 04/03/19 98.8 73 19 150/73 100 Nasal 14:39 (98) Cannula 04/03/19 2.0 08:20 Airway: Adequate mouth opening, Adequate thyromental dist Mallampati: Mallampati II Teeth: Normal Lung: Normal Heart: Normal ASA Physical Status ASA physical status: 3 Emergency: None Planned Anesthetic General/MAC: Mask (vs. ), ETT Planned Pain Management Parenteral pain med Pre-operative Attestations Prior to commencing anesthesia and surgery, the patient was re-evaluated, there was verification of: *The patient's identity *The results of appropriate recent lab work and preoperative vital signs *The above evaluation not changing prior to induction *Anesthetic plan, risk benefits, alternative and complications discussed with patient/family; questions answered; patient/family understands, accepts and wishes to proceed. KIKA MUSTAFA MD Apr 03, 2019 15:30
--- NOTE | 2019-04-03 16:24 | PN ---
Date/Time of Note Date/Time of Note DATE: 04/03/19 TIME: 16:23 Assessment/Plan VTE Prophylaxis Risk score (from Nsg)>0 risk: 7 SCD applied (from Nsg): Yes Pharmacological prophylaxis: heparin Lines/Catheters IV Catheter Type (from Nrsg): Peripheral IV Urinary Cath still in place: No Assessment/Plan Hospital Course 64 yo female with metastatic ovarian cancer for years with good response to chemotherapy presents with n/v, found to have likely large bowel obstruction - Imaging 03/30 shows obstructive apple core lesion in the colon, perhaps a new diagnosis of primary colon cancer? Colonoscopy with possible stent per Dr Gutierrez complicated by poor prep. Needs to be repeated. Trying to accomplish prep via NG tube - Needs IV access via central line which will be placed in OR during colonoscopy - Appreciate Dr Francisco consultation - PPN on hold given no IV - Pain control Ovarian cancer: - management per Dr sam Anemia: - Chronic disease CKD III: - Stable, monitor creatinine Result Diagram: 04/03/19 0550 04/03/19 0550 Results 24hrs Laboratory Tests Test 04/02/19 17:40 04/02/19 21:15 04/03/19 01:19 04/03/19 05:50 Bedside Glucose 105 95 99 105 White Blood Count 10.7 # Red Blood Count 3.21 L Hemoglobin 9.3 L Hematocrit 30.6 L Mean Corpuscular 95.3 Volume Mean Corpuscular 29.0 Hemoglobin Mean Corpuscular 30.4 L Hemoglobin Concent Red Cell 20.1 H Distribution Width Platelet Count 309 Mean Platelet Volume 10.2 Immature 0.600 H Granulocytes % Neutrophils % 74.1 Lymphocytes % 14.7 L Monocytes % 8.0 Eosinophils % 2.0 Basophils % 0.6 Nucleated Red Blood 0.0 Cells % Immature 0.060 H Granulocytes # Neutrophils # 8.0 H Lymphocytes # 1.6 Monocytes # 0.9 Eosinophils # 0.2 Basophils # 0.1 Nucleated Red Blood 0.0 Cells # Sodium Level 140 Potassium Level 3.2 L Chloride Level 105 Carbon Dioxide Level 23 Anion Gap 12 Blood Urea Nitrogen 39 H Creatinine 1.68 H Est Glomerular 31 L Filtrat Rate mL/min Glucose Level 107 # Calcium Level 8.9 Test 04/03/19 09:58 04/03/19 13:00 Bedside Glucose 109 97 Subjective 24 Hr Interval Summary Free Text/Dictation Undergoing colonoscopy prep Feels ok Exam/Review of Systems Exam Vitals Vital Signs Date Temp Pulse Resp B/P (MAP) Pulse Ox O2 O2 Flow FiO2 Time Delivery Rate 04/03/19 98.8 73 19 150/73 100 Nasal 14:39 (98) Cannula 04/03/19 2.0 08:20 Intake and Output 04/02/19 04/02/19 04/03/19 1515:00 23:00 07:00 IntakeIntake Total 800 ml 1000 ml 750 ml OutputOutput Total 500 ml 120 ml BalanceBalance 300 ml 880 ml 750 ml Constitutional: alert, oriented, well developed Psych: no complaints, nl mood/affect Head: normocephalic, atraumatic Eyes: nl conjunctiva, EOMI, nl lids, nl sclera, PERRL ENMT: nl external ears & nose, nl lips & teeth, nl nasal mucosa & septum Neck: supple, non-tender Respiratory: clear to auscultation, normal air movement Cardiovascular: regular rate and rhythm, nl pulses Gastrointestinal: soft, nl liver, spleen, non-tender Musculoskeletal: nl extremities to inspection, nl gait and stance Extremities: normal pulses Neurological: MOUNTER CLARINETS II-XII intact, nl mental status, nl speech, nl strength Skin: nl turgor; No rash or lesions Lymph: nl lymph nodes Results Results 24hrs Laboratory Tests Test 04/02/19 17:40 04/02/19 21:15 04/03/19 01:19 04/03/19 05:50 Bedside Glucose 105 95 99 105 White Blood Count 10.7 # Red Blood Count 3.21 L Hemoglobin 9.3 L Hematocrit 30.6 L Mean Corpuscular 95.3 Volume Mean Corpuscular 29.0 Hemoglobin Mean Corpuscular 30.4 L Hemoglobin Concent Red Cell 20.1 H Distribution Width Platelet Count 309 Mean Platelet Volume 10.2 Immature 0.600 H Granulocytes % Neutrophils % 74.1 Lymphocytes % 14.7 L Monocytes % 8.0 Eosinophils % 2.0 Basophils % 0.6 Nucleated Red Blood 0.0 Cells % Immature 0.060 H Granulocytes # Neutrophils # 8.0 H Lymphocytes # 1.6 Monocytes # 0.9 Eosinophils # 0.2 Basophils # 0.1 Nucleated Red Blood 0.0 Cells # Sodium Level 140 Potassium Level 3.2 L Chloride Level 105 Carbon Dioxide Level 23 Anion Gap 12 Blood Urea Nitrogen 39 H Creatinine 1.68 H Est Glomerular 31 L Filtrat Rate mL/min Glucose Level 107 # Calcium Level 8.9 Test 04/03/19 09:58 04/03/19 13:00 Bedside Glucose 109 97 Medications Medication Current Medications IV Flush (NS 3 ml) 3 ml PER PROTOCOL IV Last administered on 03/31/19 08:32; Admin Dose 3 ML; Start 03/27/19 at 13:00 Ondansetron HCl (Zofran Inj) 4 mg Q6H PRN IV NAUSEA/VOMITING Last administered on 04/02/19 08:48; Admin Dose 4 MG; Start 03/27/19 at 13:00 Famotidine (Pepcid Iv) 20 mg DAILY IV Last administered on 04/03/19 09:57; Admin Dose 20 MG; Start 03/27/19 at 13:00 Hydralazine HCl (Apresoline) 10 mg Q6H PRN IV sbp>160 Last administered on 03/31/19 08:26; Admin Dose 10 MG; Start 03/27/19 at 13:00 Hydromorphone HCl (Dilaudid) 1 mg Q4H PRN IV SEVERE PAIN LEVEL 7-10 Last administered on 04/01/19 00:59; Admin Dose 1 MG; Start 03/27/19 at 14:00 Diagnostic Test (Pha) (Accu-Chek) 1 ea Q4 XX Last administered on 04/03/19 13:01; Admin Dose 1 EA; Start 03/28/19 at 21:00 Acetaminophen (Tylenol Liquid) 650 mg Q6H PRN NGT MILD PAIN(1-3)OR ELEVATED TEMP Last administered on 04/01/19 23:21; Admin Dose 650 MG; Start 04/01/19 at 23:00 Potassium Chloride/Dextrose/ Sod Cl 1,000 ml @ 100 mls/hr Q10H IV Last administered on 04/03/19 08:27; Admin Dose 100 MLS/HR; Start 04/02/19 at 12:30 ADRIAN FRANCO MD Apr 03, 2019 16:24
[2019-04-03] MEDS ORDERED: DEXTROSE 50% 50 ML SYRINGE ONE (17:53)
[2019-04-03] MEDS ORDERED: PROPOFOL 200 MG INJ ONE (17:53)
[2019-04-03] MEDS ORDERED: MIDAZOLAM 1 MG/ML 2 ML INJ ONE (18:08)
[2019-04-03] MEDS ORDERED: PROPOFOL 20 ML ONE ×3 (18:08→18:50)
[2019-04-03] MEDS ORDERED: LIDOCAINE 2% (SDV) 5 ML INJ ONE (18:08)
[2019-04-03] MEDS ORDERED: FENTAnyl 50 MCG/ML VIAL ONE (18:26)
[2019-04-03] MEDS ORDERED: METOCLOPRAMIDE 10 MG INJ ONE (19:09)
[2019-04-03] MEDS ORDERED: FAMOTIDINE 20 MG INJ ONE (19:10)
[2019-04-03] MEDS ORDERED: ONDANSETRON 4 MG INJ ONE (19:10)
--- NOTE | 2019-04-03 19:56 | OPR ---
Date/Time of Note Date/Time of Note DATE: 04/03/19 TIME: 19:51 Operative Report Preoperative Diagnosis distal descending colon obstruction Postoperative Diagnosis same Operation/Procedure Performed colonoscopy and colonic metal stent placement Surgeon see signature line Locate Technician none Anesthesia Type: MAC Anesthesiologist: KIKA MUSTAFA MD Estimated Blood Loss: none Transfusion none Specimen none Grafts/Implants none Complications none Pt Condition Post Procedure: stable Disposition: PACU Indications distal colonic obstruction Procedure Description colonoscopy and deployement of colonic wall stent JOS BROOKS MD Apr 03, 2019 19:56
--- NOTE | 2019-04-03 20:05 | PAC ---
Date/Time of Note Date/Time of Note DATE: 04/03/19 TIME: 20:04 Post-Anesthesia Notes Post-Anesthesia Note Last documented vital signs Vital Signs Date Temp Pulse Resp B/P (MAP) Pulse Ox O2 O2 Flow FiO2 Time Delivery Rate 04/03/19 98.8 73 19 150/73 100 Nasal 14:39 (98) Cannula 04/03/19 2.0 08:20 Activity: WNL Respiratory function: WNL Cardiovascular function: WNL Mental status: Baseline Pain reasonably controlled: Yes Hydration appropriate: Yes Nausea/Vomiting absent: Yes Comments BP: 140/78 HR: 81 RR: 15 T: 98 SaO2: 100% KIKA MUSTAFA MD Apr 03, 2019 20:05
[2019-04-03] MEDS ORDERED: LABETALOL HCL 20MG INJ IV PRN (20:30)
[2019-04-03] MEDS ORDERED: HYDROmorphONE 1 MG/5 ML IV SYRINGE IV PRN (20:30)
[2019-04-03] MEDS ORDERED: ONDANSETRON 4 MG INJ IV PRN (20:30)
[2019-04-03] MEDS ORDERED: hydrALAzine 20 MG INJ IV PRN (20:30)
--- NOTE | 2019-04-03 21:46 | CONS ---
Assessment/Plan Assessment/Plan Hospital Course (Demo Recall) IMPRESSION: 1. Recurrent ovarian carcinoma, peritoneal carcinomatosis disease, status post surgery 5 years ago followed by chemotherapy pt was diagnosed in 2013. SHE presented with metastatic BL pleural effusions , post thoracentesis in 2013, cytology was c/w metastatic ovarian cancer PT HAD debulking surgery by Dr. Rafael De Paz at [facility]. Since then she has been treated with chemotherapy with CARBO /TAXOL She also had a secondary tumor debulking in 2016 at [facility]. I has been treating her recurrences, and now she is on her third regimen, currently on Doxil and Avastin, last dose is 1 week ago. 2. Possible colonic obstruction according to CT scan of abdomen and pelvis without contrast, C/W SBO NG TUBE, IVF, PAIN CONTROL, NPO GYNEONC F-UP NOTE THAT PT IS POST AVASTIN AND WITH HIGH RISK FOR PERFORATION POST SURGERY GI F-UP- colonoscopy with a colonic stent, PER GI- The metal stent placement has been planned post colonoscopy, with metal stent 3. ABD PAIN 2 TO # 2 4. Recent chemotherapy with Doxil/Avastin. 5. ARF IVF MONITOR RENAL FUNCTION 6. chronic anemia, 7. renal calculi, hypertension, 8. DMII 9. HX Constipation 10. Hypertension 11. Leukocytosis, reactive Obtain blood cultures. No fevers. Will keep off antibiotics 12. Chronic anemia monitor Consultation Date/Type/Reason Admit Date/Time Mar 27, 2019 at 08:15 Initial Consult Date 03/27/19 Type of Consult [facility] Requesting Provider: DAVID QUIROZ Date/Time of Note DATE: 04/03/19 TIME: 21:46 Exam/Review of Systems Exam Vitals Vital Signs Date Temp Pulse Resp B/P (MAP) Pulse Ox O2 O2 Flow FiO2 Time Delivery Rate 04/03/19 78 20 148/63 99 Room Air 20:32 (91) 04/03/19 98.0 19:57 04/03/19 2.0 08:20 Intake and Output 04/02/19 04/02/19 04/03/19 1515:00 23:00 07:00 IntakeIntake Total 800 ml 1000 ml 750 ml OutputOutput Total 500 ml 120 ml BalanceBalance 300 ml 880 ml 750 ml Exam Constitutional: Adequately built,not in acute distress. HEENT: Head atraumatic and normocephalic. Eyes: Extraocular muscles intact. Anicteric sclerae. Pupils equal bilaterally, reactive to light. NECK: Supple without lymph node. CHEST: Clear and good breath sounds equally. No wheezing. No rhonchi. HEART: S1, S2. Regular rate and rhythm. ABDOMEN: Tenderness to all 4 quadrants. Abdomen soft. Hypoactive bowel sounds EXTREMITIES: No cyanosis, clubbing or edema. NEUROLOGIC: Alert and oriented x3. No focal deficit. No sensory deficit. PSYCHOSOCIAL: No signs of depression. INTEGUMENTARY: No open wounds. Results Result Diagram: 04/03/19 0550 04/03/19 0550 Results 24hrs Laboratory Tests Test 04/03/19 01:19 04/03/19 05:50 04/03/19 09:58 04/03/19 13:00 Bedside Glucose 99 105 109 97 White Blood Count 10.7 # Red Blood Count 3.21 L Hemoglobin 9.3 L Hematocrit 30.6 L Mean Corpuscular 95.3 Volume Mean Corpuscular 29.0 Hemoglobin Mean Corpuscular 30.4 L Hemoglobin Concent Red Cell 20.1 H Distribution Width Platelet Count 309 Mean Platelet Volume 10.2 Immature 0.600 H Granulocytes % Neutrophils % 74.1 Lymphocytes % 14.7 L Monocytes % 8.0 Eosinophils % 2.0 Basophils % 0.6 Nucleated Red Blood 0.0 Cells % Immature 0.060 H Granulocytes # Neutrophils # 8.0 H Lymphocytes # 1.6 Monocytes # 0.9 Eosinophils # 0.2 Basophils # 0.1 Nucleated Red Blood 0.0 Cells # Sodium Level 140 Potassium Level 3.2 L Chloride Level 105 Carbon Dioxide Level 23 Anion Gap 12 Blood Urea Nitrogen 39 H Creatinine 1.68 H Est Glomerular 31 L Filtrat Rate mL/min Glucose Level 107 # Calcium Level 8.9 Test 04/03/19 17:38 04/03/19 20:05 Bedside Glucose 76 88 Medications Medication Current Medications IV Flush (NS 3 ml) 3 ml PER PROTOCOL IV Last administered on 03/31/19 08:32; Admin Dose 3 ML; Start 03/27/19 at 13:00 Ondansetron HCl (Zofran Inj) 4 mg Q6H PRN IV NAUSEA/VOMITING Last administered on 04/02/19 08:48; Admin Dose 4 MG; Start 03/27/19 at 13:00 Famotidine (Pepcid Iv) 20 mg DAILY IV Last administered on 04/03/19 09:57; Admin Dose 20 MG; Start 03/27/19 at 13:00 Hydralazine HCl (Apresoline) 10 mg Q6H PRN IV sbp>160 Last administered on 08:26; Admin Dose 10 MG; Start 03/27/19 at 13:00 Hydromorphone HCl (Dilaudid) 1 mg Q4H PRN IV SEVERE PAIN LEVEL 7-10 Last administered on 04/01/19 00:59; Admin Dose 1 MG; Start 03/27/19 at 14:00 Diagnostic Test (Pha) (Accu-Chek) 1 ea Q4 XX Last administered on 04/03/19 13:01; Admin Dose 1 EA; Start 03/28/19 at 21:00 Acetaminophen (Tylenol Liquid) 650 mg Q6H PRN NGT MILD PAIN(1-3)OR ELEVATED TEMP Last administered on 04/01/19at 23:21; Admin Dose 650 MG; Start 04/01/19 at 23:00 Potassium Chloride/Dextrose/ Sod Cl 1,000 ml @ 100 mls/hr Q10H IV Last administered on 04/03/19 08:27; Admin Dose 100 MLS/HR; Start 04/02/19 at 12:30 Hydromorphone HCl (Dilaudid) 0.4 mg PACU PRN IV PAIN; Start 04/03/19 at 20:30; Stop 04/04/19 at 01:00 Ondansetron HCl (Zofran Inj) 4 mg PACU ORDER PRN IV NAUSEA/VOMITING; Start 04/03/19 at 20:30; Stop 04/04/19 at 01:00 Labetalol HCl (Labetalol) 5 mg PACU ORDER PRN IV HIGH BLOOD PRESSURE; Start 04/03/19 at 20:30; Stop 04/04/19 at 01:00 Hydralazine HCl (Apresoline) 5 mg PACU ORDER PRN IV HIGH BLOOD PRESSURE; Start 04/03/19 at 20:30; Stop 04/04/19 at 01:00 PHILIPP CHANG MD Apr 03, 2019 21:46
[2019-04-04] MEDS: ACCU-CHEK XX SCH ×4 (01:00→12:54)
[2019-04-04 01:57] VITALS: BP 105/52; PULSE 85; RESP 18
[2019-04-04] MEDS: D5W-0.45 NACL + KCL 20 MEQ 1,000 ML IV SCH ×2 (03:41→13:41)
[2019-04-04 07:46] VITALS: BP 121/56; PULSE 82; RESP 16
[2019-04-04] MEDS: FAMOTIDINE 20 MG INJ IV SCH (10:00)
[2019-04-04 15:02] VITALS: BP 142/65; PULSE 74; RESP 18
--- NOTE | 2019-04-04 15:15 | CONS ---
Assessment/Plan Assessment/Plan Hospital Course (Demo Recall) IMPRESSION: 1. Recurrent ovarian carcinoma, peritoneal carcinomatosis disease, status post surgery 5 years ago followed by chemotherapy pt was diagnosed in 2013. SHE presented with metastatic BL pleural effusions , post thoracentesis in 2013, cytology was c/w metastatic ovarian cancer PT HAD debulking surgery by Dr. Rafael De Paz at [facility]. Since then she has been treated with chemotherapy with CARBO /TAXOL She also had a secondary tumor debulking in 2016 at [facility]. I has been treating her recurrences, and now she is on her third regimen, currently on Doxil and Avastin, last dose is 1 week ago. 2. Possible colonic obstruction according to CT scan of abdomen and pelvis without contrast, C/W SBO NG TUBE, IVF, PAIN CONTROL, NPO GYNEONC F-UP NOTE THAT PT IS POST AVASTIN AND WITH HIGH RISK FOR PERFORATION POST SURGERY GI F-UP- colonoscopy with a colonic stent, PER GI- The metal stent placement has been planned post colonoscopy, with metal stent placement 3. ABD PAIN 2 TO # 2 4. Recent chemotherapy with Doxil/Avastin. 5. ARF IVF MONITOR RENAL FUNCTION 6. chronic anemia, 7. renal calculi, hypertension, 8. DMII 9. HX Constipation 10. Hypertension 11. Leukocytosis, reactive Obtain blood cultures. No fevers. Will keep off antibiotics 12. Chronic anemia monitor Consultation Date/Type/Reason Admit Date/Time Mar 27, 2019 at 08:15 Initial Consult Date 03/27/19 Type of Consult [facility] Requesting Provider: DAVID QUIROZ Date/Time of Note DATE: 04/04/19 TIME: 15:14 Exam/Review of Systems Exam Vitals Vital Signs Date Temp Pulse Resp B/P (MAP) Pulse Ox O2 O2 Flow FiO2 Time Delivery Rate 04/04/19 97.9 74 18 142/65 94 Room Air 15:02 (90) 04/03/19 2.0 08:20 Intake and Output 04/03/19 04/03/19 04/04/19 1515:00 23:00 07:00 IntakeIntake Total 400 ml 800 ml OutputOutput Total 100 ml BalanceBalance 300 ml 800 ml Exam Constitutional: Adequately built,not in acute distress. HEENT: Head atraumatic and normocephalic. Eyes: Extraocular muscles intact. Anicteric sclerae. Pupils equal bilaterally, reactive to light. NECK: Supple without lymph node. CHEST: Clear and good breath sounds equally. No wheezing. No rhonchi. HEART: S1, S2. Regular rate and rhythm. ABDOMEN: Tenderness to all 4 quadrants. Abdomen soft. Hypoactive bowel sounds EXTREMITIES: No cyanosis, clubbing or edema. NEUROLOGIC: Alert and oriented x3. No focal deficit. No sensory deficit. PSYCHOSOCIAL: No signs of depression. INTEGUMENTARY: No open wounds. Results Result Diagram: 04/03/19 0550 04/03/19 0550 Results 24hrs Laboratory Tests Test 04/03/19 17:38 04/03/19 20:05 04/04/19 02:03 04/04/19 04:56 Bedside Glucose 76 88 77 Prealbumin 10.3 L Test 04/04/19 05:54 04/04/19 08:04 04/04/19 12:24 Bedside Glucose 92 89 80 Medications Medication Current Medications IV Flush (NS 3 ml) 3 ml PER PROTOCOL IV Last administered on 03/31/19 08:32; Admin Dose 3 ML; Start 03/27/19 at 13:00 Ondansetron HCl (Zofran Inj) 4 mg Q6H PRN IV NAUSEA/VOMITING Last administered on 04/02/19 08:48; Admin Dose 4 MG; Start 03/27/19 at 13:00 Famotidine (Pepcid Iv) 20 mg DAILY IV Last administered on 04/03/19 09:57; Admin Dose 20 MG; Start 03/27/19 at 13:00 Hydralazine HCl (Apresoline) 10 mg Q6H PRN IV sbp>160 Last administered on 03/31/19 08:26; Admin Dose 10 MG; Start 03/27/19 at 13:00 Hydromorphone HCl (Dilaudid) 1 mg Q4H PRN IV SEVERE PAIN LEVEL 7-10 Last administered on 04/01/19 00:59; Admin Dose 1 MG; Start 03/27/19 at 14:00 Diagnostic Test (Pha) (Accu-Chek) 1 ea Q4 XX Last administered on 04/03/19 13:01; Admin Dose 1 EA; Start 03/28/19 at 21:00 Acetaminophen (Tylenol Liquid) 650 mg Q6H PRN NGT MILD PAIN(1-3)OR ELEVATED TEMP Last administered on 04/01/19at 23:21; Admin Dose 650 MG; Start 04/01/19 at 23:00 Potassium Chloride/Dextrose/ Sod Cl 1,000 ml @ 100 mls/hr Q10H IV Last administered on 04/03/19at 08:27; Admin Dose 100 MLS/HR; Start 04/02/19 at 12:30 PHILIPP CHANG MD Apr 04, 2019 15:15
--- NOTE | 2019-04-04 15:38 | PN ---
Date/Time of Note Date/Time of Note DATE: 04/04/19 TIME: 15:37 Assessment/Plan VTE Prophylaxis Risk score (from Ns)>0 risk: 7 SCD applied (from Nsg): Yes Pharmacological prophylaxis: heparin Lines/Catheters IV Catheter Type (from Nrsg): Peripheral IV Urinary Cath still in place: No Assessment/Plan Hospital Course 64 yo female with metastatic ovarian cancer for years with good response to chemotherapy presents with n/v, found to have likely large bowel obstruction - Imaging 03/30 shows obstructive apple core lesion in the colon, perhaps a new diagnosis of primary colon cancer? Colonoscopy performed with stent placed 04/03 - Appreciate Dr Francisco consultation - Pain control Ovarian cancer: - management per Dr sam Anemia: - Chronic disease CKD III: - Stable, monitor creatinine Result Diagram: 04/03/19 0550 04/03/19 0550 Results 24hrs Laboratory Tests Test 04/03/19 17:38 04/03/19 20:05 04/04/19 02:03 04/04/19 04:56 Bedside Glucose 76 88 77 Prealbumin 10.3 L Test 04/04/19 05:54 04/04/19 08:04 04/04/19 12:24 Bedside Glucose 92 89 80 Subjective 24 Hr Interval Summary Free Text/Dictation Colonoscopy performed yesterday, stent was placed in obstructed colon Today feels well. Tolerating PO., Having liquid BMs Exam/Review of Systems Exam Vitals Vital Signs Date Temp Pulse Resp B/P (MAP) Pulse Ox O2 O2 Flow FiO2 Time Delivery Rate 04/04/19 97.9 74 18 142/65 94 Room Air 15:02 (90) 04/03/19 2.0 08:20 Intake and Output 04/03/19 04/03/19 04/04/19 1515:00 23:00 07:00 IntakeIntake Total 400 ml 800 ml OutputOutput Total 100 ml BalanceBalance 300 ml 800 ml Constitutional: alert, oriented, well developed Psych: no complaints, nl mood/affect Head: normocephalic, atraumatic Eyes: nl conjunctiva, EOMI, nl lids, nl sclera, PERRL ENMT: nl external ears & nose, nl lips & teeth, nl nasal mucosa & septum Neck: supple, non-tender Respiratory: clear to auscultation, normal air movement Cardiovascular: regular rate and rhythm, nl pulses Gastrointestinal: soft, nl liver, spleen, non-tender Musculoskeletal: nl extremities to inspection, nl gait and stance Extremities: normal pulses Neurological: BELLMAKER II-XII intact, nl mental status, nl speech, nl strength Skin: nl turgor; No rash or lesions Lymph: nl lymph nodes Results Results 24hrs Laboratory Tests Test 04/03/19 17:38 04/03/19 20:05 04/04/19 02:03 04/04/19 04:56 Bedside Glucose 76 88 77 Prealbumin 10.3 L Test 04/04/19 05:54 04/04/19 08:04 04/04/19 12:24 Bedside Glucose 92 89 80 Medications Medication Current Medications IV Flush (NS 3 ml) 3 ml PER PROTOCOL IV Last administered on 03/31/19 08:32; Admin Dose 3 ML; Start 03/27/19 at 13:00 Ondansetron HCl (Zofran Inj) 4 mg Q6H PRN IV NAUSEA/VOMITING Last administered on 04/02/19 08:48; Admin Dose 4 MG; Start 03/27/19 at 13:00 Hydralazine HCl (Apresoline) 10 mg Q6H PRN IV sbp>160 Last administered on 03/31/19 08:26; Admin Dose 10 MG; Start 03/27/19 at 13:00 Hydromorphone HCl (Dilaudid) 1 mg Q4H PRN IV SEVERE PAIN LEVEL 7-10 Last administered on 04/01/19 00:59; Admin Dose 1 MG; Start 03/27/19 at 14:00 Acetaminophen (Tylenol Liquid) 650 mg Q6H PRN NGT MILD PAIN(1-3)OR ELEVATED T EMP Last administered on 04/01/19 23:21; Admin Dose 650 MG; Start 04/01/19 at 23:00 Potassium Chloride/Dextrose/ Sod Cl 1,000 ml @ 100 mls/hr Q10H IV Last administered on 04/03/19 08:27; Admin Dose 100 MLS/HR; Start 04/02/19 at 12:30 ADRAIN FRANCO MD Apr 04, 2019 15:38
[2019-04-04 20:35] VITALS: BP 140/65; PULSE 76; RESP 18
[2019-04-05 02:18] VITALS: BP 132/61; PULSE 74; RESP 16
[2019-04-05] MEDS ORDERED: POTASSIUM CHLORIDE (SR) 20 MEQ TAB PO SCH (07:00)
[2019-04-05 07:15] VITALS: BP 149/76; PULSE 80; RESP 18
[2019-04-05] MEDS ORDERED: MAGNESIUM SULFATE 2 GM/50 ML 50 ML IVPB ONE (10:30)
[2019-04-05] MEDS ORDERED: MAGNESIUM OXIDE 400 MG TAB PO ONE (11:27)
--- NOTE | 2019-04-05 13:39 | PN ---
Date/Time of Note Date/Time of Note DATE: 04/05/19 TIME: 13:37 Assessment/Plan VTE Prophylaxis Risk score (from Ns)>0 risk: 5 SCD applied (from Ns): Yes Pharmacological prophylaxis: heparin Lines/Catheters IV Catheter Type (from Nrsg): Saline Lock Urinary Cath still in place: No Assessment/Plan Hospital Course 64 yo female with metastatic ovarian cancer for years with good response to chemotherapy presents with n/v, found to have likely large bowel obstruction - Imaging 03/30 showed obstructive apple core lesion in the colon. Colonoscopy performed with stent placed 04/03, appears to have alleviated obstruction. Awaiting pathology - Appreciate Dr Francisco and Dr Tadeo consultations - Pain control Ovarian cancer: - management per Dr tadeo Anemia: - Chronic disease CKD III: - Stable, monitor creatinine Hypokalemia: - Replete as tolerated Discharge planning: If tolerating PO can be discharged to home, pending approval by GI and oncology Result Diagram: 04/05/19 0442 04/05/19 0442 Results 24hrs Laboratory Tests Test 04/05/19 04:42 White Blood Count 8.0 # Red Blood Count 2.95 L Hemoglobin 8.4 L Hematocrit 27.9 L Mean Corpuscular Volume 94.6 Mean Corpuscular Hemoglobin 28.5 L Mean Corpuscular Hemoglobin Concent 30.1 L Red Cell Distribution Width 19.6 H Platelet Count 297 Mean Platelet Volume 10.1 Immature Granulocytes % 0.600 H Neutrophils % 73.5 Lymphocytes % 14.7 L Monocytes % 7.3 Eosinophils % 3.2 Basophils % 0.7 Nucleated Red Blood Cells % 0.0 Immature Granulocytes # 0.050 H Neutrophils # 5.9 Lymphocytes # 1.2 Monocytes # 0.6 Eosinophils # 0.3 Basophils # 0.1 Nucleated Red Blood Cells # 0.0 Sodium Level 145 H Potassium Level 2.5 *L Chloride Level 111 H Carbon Dioxide Level 23 Anion Gap 11 Blood Urea Nitrogen 26 #H Creatinine 1.37 H Est Glomerular Filtrat Rate mL/min 39 L Glucose Level 78 Calcium Level 8.8 Magnesium Level 1.7 Total Bilirubin 0.4 Direct Bilirubin 0.00 Indirect Bilirubin 0.4 Aspartate Amino Transf (AST/SGOT) 23 Alanine Aminotransferase (ALT/SGPT) 12 L Alkaline Phosphatase 133 H Total Protein 6.3 Albumin 3.1 L Globulin 3.20 Albumin/Globulin Ratio 0.96 Subjective 24 Hr Interval Summary Free Text/Dictation Having BMs Tolerating clears, wants to eat solids Exam/Review of Systems Exam Vitals Vital Signs Date Temp Pulse Resp B/P (MAP) Pulse Ox O2 O2 Flow FiO2 Time Delivery Rate 04/05/19 98.1 80 18 149/76 95 Room Air 07:15 (100) 04/03/19 2.0 08:20 Intake and Output 04/04/19 04/04/19 04/05/19 1515:00 23:00 07:00 IntakeIntake Total 1000 ml 240 ml 240 ml BalanceBalance 1000 ml 240 ml 240 ml Constitutional: alert, oriented, well developed Psych: no complaints, nl mood/affect Head: normocephalic, atraumatic Eyes: nl conjunctiva, EOMI, nl lids, nl sclera, PERRL ENMT: nl external ears & nose, nl lips & teeth, nl nasal mucosa & septum Neck: supple, non-tender Respiratory: clear to auscultation, normal air movement Cardiovascular: regular rate and rhythm, nl pulses Gastrointestinal: soft, nl liver, spleen, non-tender Musculoskeletal: nl extremities to inspection, nl gait and stance Extremities: normal pulses Neurological: PRINCIPAL SECURITY ARCHITECT II-XII intact, nl mental status, nl speech, nl strength Skin: nl turgor; No rash or lesions Lymph: nl lymph nodes Results Results 24hrs Laboratory Tests Test 04/05/19 04:42 White Blood Count 8.0 # Red Blood Count 2.95 L Hemoglobin 8.4 L Hematocrit 27.9 L Mean Corpuscular Volume 94.6 Mean Corpuscular Hemoglobin 28.5 L Mean Corpuscular Hemoglobin Concent 30.1 L Red Cell Distribution Width 19.6 H Platelet Count 297 Mean Platelet Volume 10.1 Immature Granulocytes % 0.600 H Neutrophils % 73.5 Lymphocytes % 14.7 L Monocytes % 7.3 Eosinophils % 3.2 Basophils % 0.7 Nucleated Red Blood Cells % 0.0 Immature Granulocytes # 0.050 H Neutrophils # 5.9 Lymphocytes # 1.2 Monocytes # 0.6 Eosinophils # 0.3 Basophils # 0.1 Nucleated Red Blood Cells # 0.0 Sodium Level 145 H Potassium Level 2.5 *L Chloride Level 111 H Carbon Dioxide Level 23 Anion Gap 11 Blood Urea Nitrogen 26 #H Creatinine 1.37 H Est Glomerular Filtrat Rate mL/min 39 L Glucose Level 78 Calcium Level 8.8 Magnesium Level 1.7 Total Bilirubin 0.4 Direct Bilirubin 0.00 Indirect Bilirubin 0.4 Aspartate Amino Transf (AST/SGOT) 23 Alanine Aminotransferase (ALT/SGPT) 12 L Alkaline Phosphatase 133 H Total Protein 6.3 Albumin 3.1 L Globulin 3.20 Albumin/Globulin Ratio 0.96 Medications Medication Current Medications IV Flush (NS 3 ml) 3 ml PER PROTOCOL IV Last administered on 03/31/19 08:32; Admin Dose 3 ML; Start 03/27/19 at 13:00 Ondansetron HCl (Zofran Inj) 4 mg Q6H PRN IV NAUSEA/VOMITING Last administered on 04/02/19 08:48; Admin Dose 4 MG; Start 03/27/19 at 13:00 Hydralazine HCl (Apresoline) 10 mg Q6H PRN IV sbp>160 Last administered on 03/31/19 08:26; Admin Dose 10 MG; Start 03/27/19 at 13:00 Hydromorphone HCl (Dilaudid) 1 mg Q4H PRN IV SEVERE PAIN LEVEL 7-10 Last administered on 04/01/19 00:59; Admin Dose 1 MG; Start 03/27/19 at 14:00 Acetaminophen (Tylenol Liquid) 650 mg Q6H PRN NGT MILD PAIN(1-3)OR ELEVATED TEMP Last administered on 04/01/19 23:21; Admin Dose 650 MG; Start 04/01/19 at 23:00 ADRIAN FRANCO MD Apr 05, 2019 13:39
[2019-04-05 13:58] VITALS: BP 138/64; PULSE 88; RESP 18
[2019-04-05] MEDS ORDERED: POTASSIUM CHLORIDE (SR) 20 MEQ TAB PO STA (16:07)
[2019-04-05 19:26] VITALS: BP 154/71; PULSE 79; RESP 16
[2019-04-05] MEDS: FAMOTIDINE 20 MG TAB PO SCH (20:08)
--- NOTE | 2019-04-05 23:19 | CONS ---
Assessment/Plan Assessment/Plan Hospital Course (Demo Recall) IMPRESSION: 1. Recurrent ovarian carcinoma, peritoneal carcinomatosis disease, status post surgery 5 years ago followed by chemotherapy pt was diagnosed in 2013. SHE presented with metastatic BL pleural effusions , post thoracentesis in 2013, cytology was c/w metastatic ovarian cancer PT HAD debulking surgery by Dr. Rafael De Paz at [facility]. Since then she has been treated with chemotherapy with CARBO /TAXOL She also had a secondary tumor debulking in 2016 at [facility]. I has been treating her recurrences, and now she is on her third regimen, currently on Doxil and Avastin, last dose is 1 week ago. 2. Possible colonic obstruction according to CT scan of abdomen and pelvis without contrast, C/W SBO NG TUBE, IVF, PAIN CONTROL, NPO GYNEONC F-UP NOTE THAT PT IS POST AVASTIN AND WITH HIGH RISK FOR PERFORATION POST SURGERY GI F-UP- colonoscopy with a colonic stent, PER GI- The metal stent placement has been planned post colonoscopy,post metal stent placement 3. ABD PAIN 2 TO # 2 4. Recent chemotherapy with Doxil/Avastin. 5. ARF IVF MONITOR RENAL FUNCTION 6. chronic anemia, 7. renal calculi, hypertension, 8. DMII 9. HX Constipation 10. Hypertension 11. Leukocytosis, reactive Obtain blood cultures. No fevers. Will keep off antibiotics 12. Chronic anemia monitor Consultation Date/Type/Reason Admit Date/Time Mar 27, 2019 at 08:15 Initial Consult Date 03/27/19 Type of Consult [facility] Requesting Provider: DAVID QUIROZ Date/Time of Note DATE: 04/05/19 TIME: 23:18 Exam/Review of Systems Exam Vitals Vital Signs Date Temp Pulse Resp B/P (MAP) Pulse Ox O2 O2 Flow FiO2 Time Delivery Rate 04/05/19 97.6 79 16 154/71 96 19:26 (98) 04/05/19 Room Air 13:58 04/03/19 2.0 08:20 Intake and Output 04/04/19 04/04/19 04/05/19 1515:00 23:00 07:00 IntakeIntake Total 1000 ml 240 ml 240 ml BalanceBalance 1000 ml 240 ml 240 ml Exam Constitutional: Adequately built,not in acute distress. HEENT: Head atraumatic and normocephalic. Eyes: Extraocular muscles intact. Anicteric sclerae. Pupils equal bilaterally, reactive to light. NECK: Supple without lymph node. CHEST: Clear and good breath sounds equally. No wheezing. No rhonchi. HEART: S1, S2. Regular rate and rhythm. ABDOMEN: Tenderness to all 4 quadrants. Abdomen soft. Hypoactive bowel sounds EXTREMITIES: No cyanosis, clubbing or edema. NEUROLOGIC: Alert and oriented x3. No focal deficit. No sensory deficit. PSYCHOSOCIAL: No signs of depression. INTEGUMENTARY: No open wounds. Results Result Diagram: 04/05/19 0442 04/05/19 1338 Results 24hrs Laboratory Tests Test 04/05/19 04:42 04/05/19 13:38 White Blood Count 8.0 # Red Blood Count 2.95 L Hemoglobin 8.4 L Hematocrit 27.9 L Mean Corpuscular Volume 94.6 Mean Corpuscular Hemoglobin 28.5 L Mean Corpuscular Hemoglobin Concent 30.1 L Red Cell Distribution Width 19.6 H Platelet Count 297 Mean Platelet Volume 10.1 Immature Granulocytes % 0.600 H Neutrophils % 73.5 Lymphocytes % 14.7 L Monocytes % 7.3 Eosinophils % 3.2 Basophils % 0.7 Nucleated Red Blood Cells % 0.0 Immature Granulocytes # 0.050 H Neutrophils # 5.9 Lymphocytes # 1.2 Monocytes # 0.6 Eosinophils # 0.3 Basophils # 0.1 Nucleated Red Blood Cells # 0.0 Sodium Level 145 H 144 Potassium Level 2.5 *L 2.8 *L Chloride Level 111 H 110 Carbon Dioxide Level 23 24 Anion Gap 11 10 Blood Urea Nitrogen 26 #H 26 H Creatinine 1.37 H 1.40 H Est Glomerular Filtrat Rate mL/min 39 L 38 L Glucose Level 78 115 Calcium Level 8.8 9.5 Magnesium Level 1.7 1.9 Total Bilirubin 0.4 Direct Bilirubin 0.00 Indirect Bilirubin 0.4 Aspartate Amino Transf (AST/SGOT) 23 Alanine Aminotransferase (ALT/SGPT) 12 L Alkaline Phosphatase 133 H Total Protein 6.3 Albumin 3.1 L Globulin 3.20 Albumin/Globulin Ratio 0.96 Medications Medication Current Medications IV Flush (NS 3 ml) 3 ml PER PROTOCOL IV Last administered on 03/31/19at 08:32; Admin Dose 3 ML; Start 03/27/19 at 13:00 Ondansetron HCl (Zofran Inj) 4 mg Q6H PRN IV NAUSEA/VOMITING Last administered on 04/02/19 08:48; Admin Dose 4 MG; Start 03/27/19 at 13:00 Hydralazine HCl (Apresoline) 10 mg Q6H PRN IV sbp>160 Last administered on 03/31/19 08:26; Admin Dose 10 MG; Start 03/27/19 at 13:00 Hydromorphone HCl (Dilaudid) 1 mg Q4H PRN IV SEVERE PAIN LEVEL 7-10 Last administered on 04/01/19 00:59; Admin Dose 1 MG; Start 03/27/19 at 14:00 Acetaminophen (Tylenol Liquid) 650 mg Q6H PRN NGT MILD PAIN(1-3)OR ELEVATED TEMP Last administered on 04/01/19 23:21; Admin Dose 650 MG; Start 04/01/19 at 23:00 Famotidine (Pepcid) 20 mg BID PO Last administered on 04/05/19 20:08; Admin Dose 20 MG; Start 04/05/19 at 21:00 PHILIPP CHANG MD Apr 05, 2019 23:19
[2019-04-06 01:23] VITALS: BP 143/63; PULSE 80; RESP 16
[2019-04-06 07:36] VITALS: BP 168/75; PULSE 78; RESP 19
[2019-04-06] MEDS: FAMOTIDINE 20 MG TAB PO SCH (08:22)
[2019-04-06 14:39] VITALS: BP 183/81; PULSE 76; RESP 20
--- NOTE | 2019-04-06 14:48 | PDOCDIS ---
Discharge Instructions CONDITION [id number] Patient Condition: [id number] Good HOME CARE INSTRUCTIONS: [id number] Diet Instructions: [id number] Regular ACTIVITY: [id number] Activity Restrictions: [id number] No Restrictions FOLLOW UP/APPOINTMENTS Follow-up Plan FOLLOW UP WITH YOUR PCP AND ONCOLOGIST SCHEDULED REID COLBERT Apr 06, 2019 14:48
--- NOTE | 2019-04-06 15:25 | DS ---
Date/Time of Note Date/Time of Note DATE: 04/06/19 TIME: 15:22 Discharge Summary Admission/Discharge Info Admit Date/Time Mar 27, 2019 at 08:15 Discharge Date/Time April 06, 2019 Discharge Diagnosis 64 yo female with metastatic ovarian cancer for years with good response to chemotherapy presents with n/v, found to have large bowel obstruction - Imaging 03/30 showed obstructive apple core lesion in the colon. Colonoscopy performed with stent placed 04/03 which has alleviated obstruction - Appreciate Dr Francisco and Dr Tadeo consultations - Pain control -Patient tolerating p.o. diet, clear for DC per GI Ovarian cancer: -Outpatient oncology follow-up Anemia: - Chronic disease CKD III: - Stable, monitor creatinine Hypokalemia: - Replete as tolerated Patient Condition: Good Hospital Course Patient is a 64 yo female with obesity, CKD 3 and metastatic ovarian cancer for years with good response to chemotherapy presents with n/v, found to have large bowel obstruction. Imaging showed obstructive apical lesion in the colon, colonoscopy was performed and stent was placed which alleviated obstruction. Due to size of lesion and location biopsy was not able to be performed but lesion is presumed to be secondary to metastatic ovarian cancer. Patient has follow-up with oncology as an outpatient, patient was clear for DC per GI and patient was tolerating a p.o. diet. On day of discharge patient vitals, labs and physical exam are stable. Home Meds Active Scripts Carvedilol* (Carvedilol*) 6.25 Mg Tablet, 6.25 MG PO BID for 60 Days, #120 TAB Prov:ADRIAN FRANCO MD 03/03/19 Reported Medications Esomeprazole Mag Trihydrate (Nexium) 40 Mg Capsule., 40 MG PO DAILY, #30 CAP 03/27/19 Olmesartan Medoxomil (Olmesartan Medoxomil) 40 Mg Tablet, 1 TAB ORAL DAILY 03/27/19 Cholecalciferol* (Vitamin D3*) 1,000 Unit Tablet, 1000 UNIT PO DAILY, TAB 03/02/19 Pantoprazole* (Protonix*) 40 Mg Tablet.dr, 40 MG PO DAILY, TAB 03/02/19 Metformin Hcl* (Metformin Hcl*) 500 Mg Tablet, 500 MG PO WITH BREAKFAST, #30 TAB 03/02/19 Clonidine Hcl* (Clonidine Hcl*) 0.1 Mg Tab, 0.1 MG PO DAILY PRN for BLOOD PRESSURE SUPPORT, TAB 03/02/19 Hydrochlorothiazide* (Hydrochlorothiazide*) 25 Mg Tab, 25 MG PO DAILY, #30 TAB 03/02/19 Follow-up Plan FOLLOW UP WITH YOUR PCP AND ONCOLOGIST SCHEDULED Primary Care Provider Care Physician No Primary Time spent on discharge: > 30 minutes REID COLBERT Apr 06, 2019 15:25
--- NOTE | 2019-04-06 22:52 | CONS ---
Assessment/Plan Assessment/Plan Hospital Course (Demo Recall) IMPRESSION: 1. Recurrent ovarian carcinoma, peritoneal carcinomatosis disease, status post surgery 5 years ago followed by chemotherapy pt was diagnosed in 2013. SHE presented with metastatic BL pleural effusions , post thoracentesis in 2013, cytology was c/w metastatic ovarian cancer PT HAD debulking surgery by Dr. Rafael De Paz at [facility]. Since then she has been treated with chemotherapy with CARBO /TAXOL She also had a secondary tumor debulking in 2016 at [facility]. I has been treating her recurrences, and now she is on her third regimen, currently on Doxil and Avastin, last dose is 2 week ago. 2. Possible colonic obstruction according to CT scan of abdomen and pelvis without contrast, C/W SBO NG TUBE, IVF, PAIN CONTROL, NPO GYNEONC F-UP NOTE THAT PT IS POST AVASTIN AND WITH HIGH RISK FOR PERFORATION POST SURGERY GI F-UP- post colonoscopy, with metal stent 3. ABD PAIN 2 TO # 2 4. Recent chemotherapy with Doxil/Avastin. 5. ARF IVF MONITOR RENAL FUNCTION 6. chronic anemia, 7. renal calculi, hypertension, 8. DMII 9. HX Constipation 10. Hypertension 11. Leukocytosis, reactive Obtain blood cultures. No fevers. Will keep off antibiotics 12. Chronic anemia monitor ok to dc f-up as lin stuart Consultation Date/Type/Reason Admit Date/Time Mar 27, 2019 at 08:15 Initial Consult Date 03/27/19 Type of Consult [facility] Requesting Provider: DAVID QUIROZ Date/Time of Note DATE: 04/06/19 TIME: 22:52 Exam/Review of Systems Exam Vitals Vital Signs Date Temp Pulse Resp B/P (MAP) Pulse Ox O2 O2 Flow FiO2 Time Delivery Rate 04/06/19 98.1 76 20 183/81 96 14:39 (115) 04/06/19 Room Air 07:36 04/03/19 2.0 08:20 Intake and Output 04/05/19 04/05/19 04/06/19 1515:00 23:00 07:00 IntakeIntake Total 600 ml 1165 ml 720 ml BalanceBalance 600 ml 1165 ml 720 ml Exam Constitutional: Adequately built,not in acute distress. HEENT: Head atraumatic and normocephalic. Eyes: Extraocular muscles intact. Anicteric sclerae. Pupils equal bilaterally, reactive to light. NECK: Supple without lymph node. CHEST: Clear and good breath sounds equally. No wheezing. No rhonchi. HEART: S1, S2. Regular rate and rhythm. ABDOMEN: Tenderness to all 4 quadrants. Abdomen soft. Hypoactive bowel sounds EXTREMITIES: No cyanosis, clubbing or edema. NEUROLOGIC: Alert and oriented x3. No focal deficit. No sensory deficit. PSYCHOSOCIAL: No signs of depression. INTEGUMENTARY: No open wounds. Results Result Diagram: 04/05/192 04/06/192 Results 24hrs Laboratory Tests Test 04/06/19 04:42 Sodium Level 145 H Potassium Level 3.5 Chloride Level 114 H Carbon Dioxide Level 22 Anion Gap 9 Blood Urea Nitrogen 24 H Creatinine 1.38 H Est Glomerular Filtrat Rate mL/min 39 L Glucose Level 92 Calcium Level 8.7 Magnesium Level 1.7 PHILIPP CHANG MD Apr 06, 2019 22:52
--- NOTE | 2019-04-06 23:29 | GILP ---
DATE OF PROCEDURE: 04/03/2019 NAME OF PROCEDURE: Colonoscopy and placement of metallic Wallstent through the obstruction of the di stal colon. POSTOPERATIVE DIAGNOSIS: Colonoscopy and placement of metallic Wallstent through the obstruction of the distal colon. DESCRIPTION OF PROCEDURE: After the informed written consent was obtained, the patient was put on le ft lateral position. Intravenous anesthesia was given by anesthesiologist, Dr. Douglas. While the krysta ent somnolent, the Olympus video colonoscope was inserted into the rectum. Scope was advanced up to the distal descending colon. There is a large mass noted occluding the total lumen. It is difficult to see the lumen; however, what appears to be a lumen, an ERCP cannula was inserted proximal to the obstruction, and through this cannula, contrast was injected and it was confirmed that the distal par t of the cannula is in the colon. Contrast showed obstruction in the distal part of the descending c olon and the guidewire was inserted into the colon and the cannula was removed. Over the guidewire, a 20 cm long 22 [place] Wallstent was deployed into the colon proximal to the stricture and also dista l to the stricture, and several photographs were obtained. The stent seems to be in the proper posit ion and procedure was terminated. PLAN: Resume the diet. Dictated By: JOS CASTREJON/DANAE Conf#: [id number] DID#: [id number] CC: SURJIT MONROY MD; PHILIPP CHANG MD; REID COLBERT MD;*EndCC*
--- NOTE | 2019-04-07 06:28 | PN ---
DATE: 04/06/2019 HISTORY OF PRESENT ILLNESS: The patient has no complaints. She has been eating food adequately. Sh e has been having small bowel movements. 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 It is not known in the distal descending colon. Colonoscopy was perf ormed. 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 This could very well be a primary tumor or it could be a tumor that is infiltrating from outside like carcinoma of the ovari es; however the metal stent was placed through the stricture into the colon across the obstruction in to the distal part of the colon. Now, the patient has been tolerating regular diet with no vomiting and she has been having good bowel movements. PHYSICAL EXAMINATION: GENERAL: She looks alert. ABDOMEN: Soft. LABORATORY WORKUP: WBC count is 8000. Potassium is 3.5. CLINICAL IMPRESSION: Status post metal stent placement through the occlusion of the distal colon. T he patient is tolerating diet and having good bowel movements. PLAN: Continue to observe the patient. Dictated By: JOS CASTREJON/DANAE Conf#: [id number] DID#: [id number] CC: ADRIAN FRANCO MD; REID COLBERT MD; PHILIPP CHANG MD;*EndCC*
== END 2019-04-06 15:40 | disposition home or self-care (01) | DRG 389 ==
LOC: E/R 02:00 → 2NE 08:15
PROVIDERS: ADMIT Internal Medicine; ATTEND Internal Medicine
PROC: 0DJD8ZZ Inspection of Lower Intestinal Tract, Via Natural or Artificial Opening Endoscopic (ICD-10-PCS; 2019-03-31)
PROC: 0D7M8DZ Dilation of Descending Colon with Intraluminal Device, Via Natural or Artificial Opening Endoscopic (ICD-10-PCS; principal; 2019-04-03 17:30)
DX: K56.601 Complete intestinal obstruction, unspecified as to cause (principal); N17.9 Acute kidney failure, unspecified; C78.6 Secondary malignant neoplasm of retroperitoneum and peritoneum; C78.5 Secondary malignant neoplasm of large intestine and rectum; I12.9 Hypertensive chronic kidney disease with stage 1 through stage 4 chronic kidney disease, or unspecified chronic kidney disease; K59.00 Constipation, unspecified; D72.829 Elevated white blood cell count, unspecified; D63.8 Anemia in other chronic diseases classified elsewhere; E87.6 Hypokalemia; E11.22 Type 2 diabetes mellitus with diabetic chronic kidney disease; N18.3 Chronic kidney disease, stage 3 (moderate); Z79.84 Long term (current) use of oral hypoglycemic drugs; Z90.710 Acquired absence of both cervix and uterus; Z85.43 Personal history of malignant neoplasm of ovary
CPT/HCPCS: 36415; 71045; 74018; 74019; 74176; 74270; 80048; 80053; 80061; 82962; 83036; 83690; 83735; 84100; 84132; 84134; 84478; 85025; 86304; 93005; 96374; 96375; 96376; J0131; J0360; J1170; J1885; J2250; J2270; J2405; J2765; J3010; J3475; J3480; J7030; J7042; Q9967